=== PATIENT | female | born 1980 | race Two or more races ===

== ENCOUNTER 2017-11-07 21:04 | Inpatient (IN) | payer MEDICAID ==
[~2017-11-07] VITALS: Ht 165.1 cm; Wt 48.1 kg
[2017-11-07] MEDS ORDERED: Morphine Sulfate 4mg/ml Inj IVP ONE ×3 (21:30→23:30)
[2017-11-07 21:55] LABS: APPEARANCE,URINE CLEAR; BILIRUBIN, URINE NEGATIVE (NEGATIVE); GLUCOSE, URINE (UA) NEGATIVE (NEGATIVE); KETONES,URINE 2+ (NEGATIVE); LEUKOCYTE ESTERASE ,URINE 1+ (NEGATIVE); NITRITE,URINE NEGATIVE (NEGATIVE); PH,URINE 5 (4.5-8.0); PROTEIN,URINE 1+ (NEGATIVE); UROBILINOGEN,URINE 1 MG/DL (0.0-1.0)
[2017-11-07 21:57] LABS: COLOR,URINE YELLOW
[2017-11-07 22:00] LABS: BASOPHILS % (AUTO) 1.9 % (0.0-2.0); EOSINOPHILS % (AUTO) 0.1 % (0.0-3.0); HEMATOCRIT 41.6 % (37.0-47.0); HEMOGLOBIN 14.1 G/DL (12.0-16.0); LYMPHOCYTES % (AUTO) 26.9 % (20.0-45.0); MEAN CORPUSCULAR VOLUME 91 FL (80-99); MONOCYTES % (AUTO) 3.9 % (1.0-10.0); NEUTROPHILS % (AUTO) 67.3 % (45.0-75.0); PLATELET COUNT 367 K/UL (150-450); RED CELL DISTRIBUTION WIDTH 11.7 % (11.6-14.8); WHITE BLOOD COUNT 4.4 K/UL (4.8-10.8)
[2017-11-07 22:11] LABS: ANION GAP 8 mmol/L (5-15); BLOOD UREA NITROGEN 8 mg/dL (7-18); CALCIUM 9.5 MG/DL (8.5-10.1); CARBON DIOXIDE 29 MMOL/L (21-32); CHLORIDE 94 MMOL/L (98-107); CREATININE 0.8 MG/DL (0.55-1.30); POTASSIUM 2.9 MMOL/L (3.5-5.1); SODIUM 131 MMOL/L (136-145)
[2017-11-07 22:15] LABS: ALANINE AMINOTRANSFERASE 16 U/L (12-78); ALBUMIN 3.2 G/DL (3.4-5.0); ALBUMIN/GLOBULIN RATIO 0.8 (1.0-2.7); ALKALINE PHOSPHATASE 45 U/L (46-116); ASPARTATE AMINO TRANSFERASE 23 U/L (15-37); BILIRUBIN,TOTAL 0.4 MG/DL (0.2-1.0)
[2017-11-07] MEDS ORDERED: Zosyn 3.375gm inj ONE (23:29)
[2017-11-07] MEDS ORDERED: Piperacillin/Tazobactam 3.375 GM in NS 110 ML IVPB ONE (23:30)
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
[2017-11-08] VITALS (24 sets, daily range): BP systolic 84–113; BP diastolic 51–82
--- NOTE | 2017-11-08 00:24 | Emergency Room Report ---
History of Present Illness General Chief Complaint: Abdominal Pain Source: Patient Present Illness HPI Is a 37-year-old female with no past medical history. She presents with chief complaint of acute onset abdominal pain. Onset tonight when she was in the car. At the pullover to call 911. Pain is diffuse in nature. Has nausea and vomiting. No diarrhea. Her family said that she has been vomiting on and off for about a month now. Usually at night. Also with a 25 pound weight loss. Has a history of ulcer. Denies any fever or chills. Denies any diarrhea. Pain is 10 out of 10. Allergies: Coded Allergies: No Known Allergies (Unverified , 11/07/17) Patient History Past Medical History: none, see triage record, old chart reviewed Past Surgical History: none Pertinent Family History: none Social History: Denies: smoking Last Menstrual Period: unknown Now: No Immunizations: other Reviewed Nursing Documentation: PMH: Agreed, PSxH: Agreed Review of Systems Eye: Denies: eye pain, blurred vision ENT: Denies: ear pain, nose congestion, throat swelling Respiratory: Denies: cough, shortness of breath Cardiovascular: Denies: chest pain, palpitations Gastrointestinal: Reports: abdominal pain, nausea, vomiting, Denies: diarrhea Musculoskeletal: Denies: back pain, joint pain Skin: Denies: rash Neurological: Denies: headache, numbness Endocrine: Denies: increased thirst, increased urine Hematologic/Lymphatic: Denies: easy bruising All Other Systems: negative except mentioned in HPI Physical Exam Vital Signs Date Time Temp Pulse Resp B/P (MAP) Pulse Ox O2 Delivery O2 Flow Rate FiO2 11/07/17 21:00 97.9 97 18 104/67 98 Room Air vitals normal Sp02 EP Interpretation: reviewed, normal General Appearance: alert, moderate distress, thin Head: normocephalic, atraumatic Eyes: bilateral eye PERRL, bilateral eye EOMI ENT: hearing grossly normal, normal pharynx Neck: full range of motion, supple, no meningismus Respiratory: chest non-tender, lungs clear, normal breath sounds Cardiovascular #1: regular rate, rhythm, no murmur Gastrointestinal: no mass, no organomegaly, no bruit, non-distended, tenderness - Diffuse Musculoskeletal: back normal, gait/station normal, normal range of motion Neurologic: alert, oriented x3 Psychiatric: mood/affect normal Skin: warm/dry Procedures Critical Care Time Critical Care Time Critical care is mandated in this patient who presented with acute abdomen with peritonitis. Patient require my urgent intervention to attenuate the risks of metabolic collapse which may lead to cardiovascular collapse and . Critical care time is 35 minutes excluding any reportable procedure. Critical care time included evaluation, multiple reevaluation, looking at old charts, interpreting laboratory and diagnostic data, discussing case with patient and family and consultants, and charting. Medical Decision Making Diagnostic Impression: Primary Impression: Perforated gastric ulcer Qualified Codes: K25.1 - Acute gastric ulcer with perforation Additional Impressions: Adnexal mass Peritoneal carcinomatosis ER Course Patient presents with 2 major issues. First is that she has a perforated ulcer and has free air. She would need surgery. I discussed the case with Dr. Burton, surgeon on-call. He was in the ER for another case. He saw evaluate the patient. Will take her to the OR. Patient's second issue is neck some asked. 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 Antibiotic started. IV fluid started. Pain medication given. Will admit to OR. Lab Results Impression labs unremarkable EKG Diagnostic Results Rate: normal Rhythm: NSR ST Segments: no acute changes Rhythm Strip Diag. Results Rhythm Strip Time: 00:23 EP Interpretation: yes Rate: 80 Rhythm: NSR, no PVC's, no ectopy Chest X-Ray Diagnostic Results Chest X-Ray Diagnostic Results : Chest X-Ray Ordered: Yes # of Views/Limited/Complete: 1 View Indication: Chest Pain EP Interpretation: Yes Interpretation: no consolidation, no effusion, no pneumothorax Impression: No acute disease Electronically Signed by: Arnold Diggs MD CT/MRI/US Diagnostic Results CT/MRI/US Diagnostic Results : Imaging Test Ordered: CT abd and pelvis Impression Read by radiologist. 6 cm right adnexal mass. Moderate ascites. Taken peritoneum an omental heterogenicity concerning for carcinomatosis. Pneumoperitoneum concerning for perforated gastric ulcer. Last Vital Signs Date Time Temp Pulse Resp B/P (MAP) Pulse Ox O2 Delivery O2 Flow Rate FiO2 11/07/17 21:00 97.9 97 18 104/67 98 Room Air Status: improved Disposition: ADMITTED INPATIENT Condition: Serious Referrals: NOT CHOSEN RAFITA/,REFERRING (PCP) ARNOLD DIGGS M.D. Nov 08, 2017 00:24
--- NOTE | 2017-11-08 00:59 | History and Physical ---
History of Present Illness General Date patient seen: Nov 08, 2017 Time patient seen: 12:00 Reason for Hospitalization: Abdominal Pain Present Illness HPI 37 year old female with no sig pmh who presents with acute onset severe abd pain. Pt states that she was at the vitamin store and while walking back to her car began to have severe pain that put her to the floor. Pt states pain is generalized, 10/10, sharp and cramping in nature. Denies radiation of pain. Pt states that around Aug/Aug she started having intermittent abd pain w/ nausea and vomiting a well as reflux. She thought they were 2/2 gastric ulcer. She did not see a doctor but started holistic therapy w/ diet change and vitamins. Pt states previously she would drink and smoke often, as well as do some drugs such as cocaine. She has become vegan. She has had poor PO intake 2/2 nausea and vomiting. She has lost abt 15-20lbs in the past month. Last BM 3 days ago. Does suffer from constipation. Denies f/c, chest pain, SOB, dysuria. In ED, pt had CT A/P performed and demonstrated ascites, pneumoperitoneum, possible gastric perforation, possible carcinomatosis. Surgery was consulted w/ plan for OR. Allergies: Coded Allergies: No Known Allergies (Unverified , 11/07/17) Patient History History Provided By: Patient, Medical Record Healthcare decision maker Resuscitation status Advanced Directive on File Past Medical/Surgical History Past Medical/Surgical History: (1) No significant past medical history Family History Family History: Patient reports no known family medical history. Social History Social History: (1) Prior tobacco and alcohol use but state quit in Aug 2017 Review of Systems Constitutional: Reports: malaise, weakness Eye: Reports: no symptoms ENT: Reports: no symptoms Respiratory: Reports: no symptoms Cardiovascular: Reports: no symptoms Gastrointestinal: Reports: abdominal pain, nausea Genitourinary: Reports: no symptoms Musculoskeletal: Reports: no symptoms Skin: Reports: no symptoms Psychiatric: Reports: no symptoms Neurological: Reports: no symptoms Endocrine: Reports: no symptoms Hematologic/Lymphatic: Reports: no symptoms Physical Exam Physical Exam Narrative General: alert, cooperative, no distress, appears stated age Head: normocephalic, without obvious abnormality, atraumatic Eyes: conjunctivae/corneas clear. PERRL, EOM's intact Throat: lips, mucosa, and tongue normal. MMM Neck: supple, symmetrical, trachea midline, and no JVD Lungs: clear to auscultation bilaterally Heart: regular rate and rhythm, S1, S2 normal, no murmur, click, rub or gallop Abdomen: soft, appropriately TTP, no distention, dressing c/d/i Extremities: extremities normal, atraumatic, no cyanosis or edema Pulses: 2+ and symmetric Skin: skin color, texture, turgor normal; no rashes or lesions Neurologic: grossly normal, no focal deficits Last 24 Hour Vital Signs Date Time Temp Pulse Resp B/P (MAP) Pulse Ox O2 Delivery O2 Flow Rate FiO2 11/07/17 21:00 97.9 97 18 104/67 98 Room Air Intake and Output 11/07/17 11/08/17 19:00 07:00 Intake Total 0 ml Balance 0 ml Intake Oral 0 ml Laboratory Tests Test 11/07/17 21:25 White Blood Count 4.4 K/UL (4.8-10.8) L Red Blood Count 4.60 M/UL (4.20-5.40) Hemoglobin 14.1 G/DL (12.0-16.0) Hematocrit 41.6 % (37.0-47.0) Mean Corpuscular Volume 91 FL (80-99) Mean Corpuscular Hemoglobin 30.6 PG (27.0-31.0) Mean Corpuscular Hemoglobin Concent 33.8 G/DL (32.0-36.0) Red Cell Distribution Width 11.7 % (11.6-14.8) Platelet Count 367 K/UL (150-450) Mean Platelet Volume 8.3 FL (6.5-10.1) Neutrophils (%) (Auto) 67.3 % (45.0-75.0) Lymphocytes (%) (Auto) 26.9 % (20.0-45.0) Monocytes (%) (Auto) 3.9 % (1.0-10.0) Eosinophils (%) (Auto) 0.1 % (0.0-3.0) Basophils (%) (Auto) 1.9 % (0.0-2.0) Urine Color Yellow Urine Appearance Clear Urine pH 5 (4.5-8.0) Urine Specific [place] 1.020 (1.005-1.035) Urine Protein 1+ (NEGATIVE) H Urine Glucose (UA) Negative (NEGATIVE) Urine Ketones 2+ (NEGATIVE) H Urine Occult Blood 1+ (NEGATIVE) H Urine Nitrite Negative (NEGATIVE) Urine Bilirubin Negative (NEGATIVE) Urine Urobilinogen 1 MG/DL (0.0-1.0) H Urine Leukocyte Esterase 1+ (NEGATIVE) H Urine RBC 2-4 /HPF (0 - 2) H Urine WBC 2-4 /HPF (0 - 2) Urine Squamous Epithelial Cells Few /LPF (NONE/OCC) Urine Amorphous Sediment Few /LPF (NONE) H Urine Bacteria Few /HPF (NONE) Urine Fine Granular Casts 2-4 /LPF (NONE) H Urine HCG, Qualitative Negative Sodium Level 131 MMOL/L (136-145) L Potassium Level 2.9 MMOL/L (3.5-5.1) L Chloride Level 94 MMOL/L (98-107) L Carbon Dioxide Level 29 MMOL/L (21-32) Anion Gap 8 mmol/L (5-15) Blood Urea Nitrogen 8 mg/dL (7-18) Creatinine 0.8 MG/DL (0.55-1.30) Estimat Glomerular Filtration Rate > 60 mL/min (>60) Glucose Level 203 MG/DL (74-106) H Calcium Level 9.5 MG/DL (8.5-10.1) Total Bilirubin 0.4 MG/DL (0.2-1.0) Aspartate Amino Transf (AST/SGOT) 23 U/L (15-37) Alanine Aminotransferase (ALT/SGPT) 16 U/L (12-78) Alkaline Phosphatase 45 U/L (46-116) L Total Protein 7.3 G/DL (6.4-8.2) Albumin 3.2 G/DL (3.4-5.0) L Globulin 4.1 g/dL Albumin/Globulin Ratio 0.8 (1.0-2.7) L Lipase 67 U/L (73-393) L Urine Opiates Screen Negative (NEGATIVE) Urine Barbiturates Screen Negative (NEGATIVE) Phencyclidine (PCP) Screen Negative (NEGATIVE) Urine Amphetamines Screen Negative (NEGATIVE) Urine Benzodiazepines Screen Negative (NEGATIVE) Urine Cocaine Screen Negative (NEGATIVE) Urine Marijuana (THC) Screen Positive (NEGATIVE) H Height (Feet): 5 Height (Inches): 5.00 Weight (Pounds): 156 Assessment/Plan Problem List: (1) Large perforated chronic gastric antrum anterior ulcer (2) Large right ovarian mass (3) Peritoneal carcinomatosis ICD Codes: C78.6 - Secondary malignant neoplasm of retroperitoneum and peritoneum; C80.1 - Malignant (primary) neoplasm, unspecified SNOMED: 204540558, [id number] (4) Peritonitis (acute) generalized ICD Codes: K65.0 - Generalized (acute) peritonitis SNOMED: 15299427 (5) Pneumoperitoneum ICD Codes: K66.8 - Other specified disorders of peritoneum SNOMED: 69994943 Status: stable Assessment/Plan Admit to ICU Appreciate surgery rec's s/p diagnostic laparoscopy converted to exploratory laparotomy w/ antrectomy and Billroth II gastrojejunostomy, R ovarian biopsy, abd washout F/u path Check CEA, CA 125 NPO NGT to LIWS. Per surgery, do not replace if dislodged IVFs Empiric IV zosyn PPI DVT ppx w/ SCDs, start HSQ when ok with surgery Pain control Nausea control Supportive care Ellis to monitor I/O's ISS Ambulate FULL CODE D/w pt, RN, SW/CM, surgery regarding mgmt and dispo Roxanne Dubon M.D. Nov 08, 2017 00:58
[2017-11-08] MEDS ORDERED: Morphine Sulfate 4mg/ml Inj IVP ONE (01:00)
[2017-11-08] MEDS ORDERED: Lidocaine 1% 10mg/ml/EPI 0.01mg/ml 50ml INJ ONE (02:15)
[2017-11-08] MEDS ORDERED: Morphine Sulfate 2mg/ml Inj IVP PRN (02:30)
[2017-11-08] MEDS ORDERED: Miralax 17gm pkt ORAL PRN ×2 (02:30→08:30)
[2017-11-08] MEDS ORDERED: Potassium Chloride 10 MEQ in D5 1/2NS 1,000 ML IV SCH (02:30)
[2017-11-08] MEDS ORDERED: Zolpidem 5mg tab ORAL PRN (02:30)
[2017-11-08] MEDS: LR 1000ml 1,000 ML IV SCH ×3 (02:30→08:04)
[2017-11-08] MEDS ORDERED: Acetaminophen 650 MG SUPP RECTAL PRN ×2 (02:30)
[2017-11-08] MEDS ORDERED: Morphine Sulfate 4mg/ml Inj IVP PRN (02:30)
[2017-11-08] MEDS ORDERED: Mylanta II UD 30ml ORAL PRN (02:30)
[2017-11-08] MEDS ORDERED: Sterile Water Irrig 1000ml IRRIG ONE (03:00)
[2017-11-08] MEDS ORDERED: LR 1000ml ONE (03:00)
[2017-11-08] MEDS ORDERED: Propofol 200mg/20ml IV ONE (03:00)
[2017-11-08] MEDS ORDERED: NS Irrig 1000ml ONE (03:00)
[2017-11-08] MEDS ORDERED: NS w/KCl 40mEq 1,000 ML IV SCH (03:00)
[2017-11-08] MEDS ORDERED: Succinylcholine 20mg/ml 10ml vial ONE (03:00)
[2017-11-08] MEDS ORDERED: Lidocaine 1% MPF 10mg/ml 5ml ONE (03:00)
[2017-11-08] MEDS ORDERED: Ketorolac 30mg Inj ONE (03:00)
[2017-11-08] MEDS ORDERED: fentaNYL 100 mcg/2 mL IV ONE (03:00)
[2017-11-08] MEDS ORDERED: Midazolam 2mg/2ml Inj ONE (03:00)
[2017-11-08] MEDS ORDERED: Metoclopramide 10mg/2ml Inj ONE (03:00)
[2017-11-08] MEDS ORDERED: Zemuron 50mg/5ml Inj IV ONE (03:00)
[2017-11-08] MEDS ORDERED: Dexamethasone 4mg/ml vial ONE (03:00)
[2017-11-08] MEDS ORDERED: NS Irrig 1000ml IRRIG ONE (03:15)
[2017-11-08] MEDS ORDERED: LR 1000ml 1,000 ML IVLG SCH (03:34)
--- NOTE | 2017-11-08 03:34 | Anethesia Preoperative Eval ---
Anesthesia Pre-op PMH/ROS General Date of Evaluation: Nov 08, 2017 Anesthesiologist: Tello ASA Score: ASA 2 - E Mallampati Score Class I : Soft palate, uvula, fauces, pillars visible Class II: Soft palate, uvula, fauces visible Class III: Soft palate, base of uvula visible Class IV: Only hard plate visible Mallampati Classification: Class II Surgeon: Micheal Diagnosis: Abdominal pain Surgical Procedure: Exploratory laparoscopy Anesthesia History: none Family History: no anesthesia problems Allergies: Coded Allergies: No Known Allergies (Unverified , 11/07/17) Medications: see eMAR Past Medical History Cardiovascular: Denies: HTN, CAD, NE, valve dz, arrhythmia, other Pulmonary: Denies: asthma, COPD, DEMETRIA, other Gastrointestinal/Genitourinary: Reports: GERD, other - colitis, N/V for 1 month , Denies: CRI, ESRD Neurologic/Psychiatric: Denies: dementia, CVA, depression/anxiety, TIA, other Endocrine: Denies: DM, hypothyroidism, steroids, other HEENT: Denies: cataract (L), cataract (R), glaucoma, HABEMATOLEL (L), HABEMATOLEL (R), other Hematology/Immune: Denies: anemia, DVT, bleeding disorder, other Musculoskeletal/Integumentary: Denies: OA, RA, DJD, DDD, edema, other Other: other - failure to thrive PSxH Narrative: Denies Anesthesia Pre-op Phys. Exam Physician Exam Last Vital Signs Date Time Temp Pulse Resp B/P (MAP) Pulse Ox O2 Delivery O2 Flow Rate FiO2 11/08/17 03:02 97.6 98 16 105/55 98 Room Air Constitutional: other - in moderate distress, pain 7/10 Cardiovascular: RRR Respiratory: CTA Airway Exam Mallampati Score: Class II MO: limited ROM: full Teeth: intact Anesthesia Pre-op A/P Labs Hematology Test 11/07/17 21:25 White Blood Count 4.4 K/UL (4.8-10.8) L Red Blood Count 4.60 M/UL (4.20-5.40) Hemoglobin 14.1 G/DL (12.0-16.0) Hematocrit 41.6 % (37.0-47.0) Mean Corpuscular Volume 91 FL (80-99) Mean Corpuscular Hemoglobin 30.6 PG (27.0-31.0) Mean Corpuscular Hemoglobin Concent 33.8 G/DL (32.0-36.0) Red Cell Distribution Width 11.7 % (11.6-14.8) Platelet Count 367 K/UL (150-450) Mean Platelet Volume 8.3 FL (6.5-10.1) Neutrophils (%) (Auto) 67.3 % (45.0-75.0) Lymphocytes (%) (Auto) 26.9 % (20.0-45.0) Monocytes (%) (Auto) 3.9 % (1.0-10.0) Eosinophils (%) (Auto) 0.1 % (0.0-3.0) Basophils (%) (Auto) 1.9 % (0.0-2.0) Chemistry Test 11/07/17 21:25 Sodium Level 131 MMOL/L (136-145) L Potassium Level 2.9 MMOL/L (3.5-5.1) L Chloride Level 94 MMOL/L (98-107) L Carbon Dioxide Level 29 MMOL/L (21-32) Anion Gap 8 mmol/L (5-15) Blood Urea Nitrogen 8 mg/dL (7-18) Creatinine 0.8 MG/DL (0.55-1.30) Estimat Glomerular Filtration Rate > 60 mL/min (>60) Glucose Level 203 MG/DL (74-106) H Calcium Level 9.5 MG/DL (8.5-10.1) Total Bilirubin 0.4 MG/DL (0.2-1.0) Aspartate Amino Transf (AST/SGOT) 23 U/L (15-37) Alanine Aminotransferase (ALT/SGPT) 16 U/L (12-78) Alkaline Phosphatase 45 U/L (46-116) L Total Protein 7.3 G/DL (6.4-8.2) Albumin 3.2 G/DL (3.4-5.0) L Globulin 4.1 g/dL Albumin/Globulin Ratio 0.8 (1.0-2.7) L Lipase 67 U/L (73-393) L Urine Test Test 11/07/17 21:25 Urine HCG, Qualitative Negative Studies Pre-op Studies: EKG - sr Risk Assessment & Plan Assessment: ASA IIE Plan: GA Status Change Before Surgery: No Pre-Antibiotics Drug: Ancef 1g Given Within 1 Hr of Incision: Yes GREG XIE M.D. Nov 08, 2017 03:34
--- NOTE | 2017-11-08 03:39 | Immediate Post-Op Evaluation ---
Immediate Post-Op Evalulation Immediate Post-Op Evalulation Procedure: exploratory laparoscopy, repair of perforated gastric ulcer Date of Evaluation: Nov 08, 2017 Time of Evaluation: 06:03 IV Fluids: 3L Blood Products: 0 Estimated Blood Loss: 100 Urinary Output: 200 Blood Pressure Systolic: 99 Blood Pressure Diastolic: 56 Pulse Rate: 101 Respiratory Rate: 17 O2 Sat by Pulse Oximetry: 100 Temperature (Fahrenheit): 98 Pain Score (1-10): 0 Nausea: No Vomiting: No Complications 0 Patient Status: awake, reacts, patent, none Hydration Status: adequate Drug: Ancef 1g Given Within 1 Hr of Incision: Yes Time Given: 03:00 GREG XIE M.D. Nov 08, 2017 03:38
[2017-11-08] MEDS ORDERED: DiphenhydrAMINE 50mg/ml Inj IVP PRN (03:45)
[2017-11-08] MEDS ORDERED: fentaNYL 100 mcg/2 mL IV PRN (03:45)
[2017-11-08] MEDS ORDERED: Hydromorphone 0.5mg/0.5ml inj IVP PRN (03:45)
[2017-11-08] MEDS ORDERED: Ketorolac 30mg Inj IV PRN (03:45)
[2017-11-08] MEDS ORDERED: D5 1/2NS w/KCl 20mEq 1,000 ML IV SCH (05:57)
[2017-11-08] MEDS ORDERED: Piperacillin/Tazobactam 3.375 GM in NS 110 ML IVPB SCH (06:00)
--- NOTE | 2017-11-08 06:04 | Brief Operative Note ---
Immediate Post Operative Note Operative Note Pre-op Diagnosis: acute abdomen, peritonitis, pneumoperitoneum Procedure: diagnostic laparoscopy, converted to exploratory laparotomy, antrectomy, Billroth 2 gastrojejunostomy, right ovary biopsy. Surgeon: jaimee Anesthesiologist: Graham Anesthesia: general Specimen: yes - 1. peritoneal fluid, 2. omentum, 3. right ovary biopsy, antrectomy Complications: none Condition: stable Fluids: see records Estimated Blood Loss: volume Drains: NICOLE Implant(s) used?: No Torrey Burton Nov 08, 2017 06:04
[2017-11-08] MEDS: HYDROmorphone 1mg/ml Carpuject IVP PRN ×2 (07:29→21:20)
[2017-11-08] MEDS ORDERED: Docusate 100mg cap ORAL SCH (09:00)
--- NOTE | 2017-11-08 09:06 | 48 Hour Post Anesthesia Eval ---
Post Anesthesia Evaluation Procedure: exploratory laparoscopy, repair of perforated gastric ulcer Date of Evaluation: Nov 08, 2017 Time of Evaluation: 09:05 Blood Pressure Systolic: 104 0: 52 Pulse Rate: 88 Respiratory Rate: 22 Temperature (Fahrenheit): 97.6 O2 Sat by Pulse Oximetry: 99 Airway: patent Nausea: No Vomiting: No Pain Intensity: 3 Hydration Status: adequate Cardiopulmonary Status: stable Mental Status/LOC: patient returned to baseline Follow-up Care/Observations: n/a Post-Anesthesia Complications: none Follow-up care needed: N/A ELISE MAHONEY M.D. Nov 08, 2017 09:06
[2017-11-08] MEDS: Piperacillin/Tazobactam 3.375 GM in NS 110 ML IVPB SCH ×2 (10:00→18:29)
[2017-11-08 10:34] LABS: HEMOGLOBIN 13.2 G/DL (12.0-16.0); MEAN CORPUSCULAR VOLUME 89 FL (80-99); PLATELET COUNT 274 K/UL (150-450); RED BLOOD COUNT 4.25 M/UL (4.20-5.40); RED CELL DISTRIBUTION WIDTH 11.7 % (11.6-14.8); WHITE BLOOD COUNT 5.2 K/UL (4.8-10.8)
[2017-11-08 12:17] LABS: ALANINE AMINOTRANSFERASE 22 U/L (12-78); ALBUMIN 1.9 G/DL (3.4-5.0); ALBUMIN/GLOBULIN RATIO 0.6 (1.0-2.7); ALKALINE PHOSPHATASE 26 U/L (46-116); ANION GAP 10 mmol/L (5-15); ASPARTATE AMINO TRANSFERASE 26 U/L (15-37); BILIRUBIN,TOTAL 0.5 MG/DL (0.2-1.0); BLOOD UREA NITROGEN 7 mg/dL (7-18); CALCIUM 8.3 MG/DL (8.5-10.1); CARBON DIOXIDE 25 MMOL/L (21-32); CHLORIDE 99 MMOL/L (98-107); CREATININE 0.8 MG/DL (0.55-1.30); SODIUM 134 MMOL/L (136-145)
--- NOTE | 2017-11-08 12:17 | Pulmonolgy Critical Care Note ---
Critical Care - Asmt/Plan Problems: (1) Shock (2) Peritonitis (acute) generalized (3) Perforated gastric ulcer Respiratory: monitor respiratory rate, adjust FIO2, CXR Cardiac: continue to monitor HR/BP Renal: F/U I&O, increase IV fluid Infectious Disease: continue antibiotics Endocrine: monitor blood sugar Hematologic: monitor H/H Neurologic: PRN Ativan Disposition: keep in ICU Notes Reviewed: renal Discussed with: consultants Critical Care - Objective Last 24 Hour Vital Signs Date Time Temp Pulse Resp B/P (MAP) Pulse Ox O2 Delivery O2 Flow Rate FiO2 11/08/17 11:00 100 12 101/74 99 Nasal Cannula 3.0 11/08/17 10:00 103 13 106/69 100 Nasal Cannula 3.0 11/08/17 09:06 88 22 99 11/08/17 09:00 98 11 97/60 100 Nasal Cannula 3.0 11/08/17 08:00 98 11/08/17 08:00 103 12 100/67 100 Nasal Cannula 3.0 11/08/17 07:00 98.5 97 15 113/75 100 Nasal Cannula 3.0 11/08/17 06:30 98.2 97 20 111/79 100 Nasal Cannula 3.0 100 11/08/17 06:15 98 20 98/60 100 Simple Mask 10.0 100 11/08/17 06:07 99 20 102/59 100 Simple Mask 10.0 100 11/08/17 06:02 100 20 93/55 100 Simple Mask 10.0 100 11/08/17 05:57 98.0 100 20 84/53 100 Simple Mask 10.0 100 11/08/17 03:02 97.6 98 16 105/55 98 Room Air 11/08/17 02:30 97.6 98 16 105/55 98 Room Air 11/07/17 21:00 97.9 97 18 104/67 98 Room Air Status: awake Condition: critical HEENT: atraumatic Neck: full ROM Lungs: clear Heart: HR/BP stable, HR/BP unstable Abdomen: soft, active bowel sounds Extremities: no C/C/E Accucheck: 137 Critical Care - Subjective ROS Limited/Unobtainable: No ICU Day: 1 Interval Events: pt had laparotomy, antrectomy, Billroth 2 gastrojejunostomy, right ovary biopsy. transferred to ICU for hypotension. FI02: 100 Sputum Amount: None I&O: Intake and Output 11/07/17 11/08/17 19:00 07:00 Intake Total 3000 ml Output Total 480 ml Balance 2520 ml Intake Oral 0 ml IV Total 3000 ml Output Urine Total 330 ml Drainage Total 100 ml Estimated Blood Loss 50 ml PENNY GOMEZ Nov 08, 2017 12:17
--- NOTE | 2017-11-08 12:54 | Diagnostic Imaging Report ---
. Indication: Dyspnea Technique: XRAY Chest 1v Comparison: None Findings: Heart size and mediastinal contours are within normal limits given technique. There is no focal consolidation, pneumothorax or pleural effusion. Osseous structures demonstrate no acute abnormality. Impression: No radiographic evidence of acute cardiopulmonary disease.
--- NOTE | 2017-11-08 17:52 | Cardiology Report ---
APPROVED REPORT EKG Measurement Heart [id number] Normal sinus rhythm Prolonged QT ST-T abn - consider anterior ischemia Abnormal ECG
--- NOTE | 2017-11-08 17:57 | Diagnostic Imaging Report ---
Indication: Abdominal pain Technique: CT of the abdomen and pelvis utilizing automated exposure control with intravenous contrast. Venous scanning performed. CT dose: Total DLP 418.72 mGycm; CTDI vol 8.93 mGy Comparison: None Findings: There is dependent atelectasis in the lung bases. Heart size is within normal limits. No pericardial effusion. There is pneumoperitoneum. There is suggestion of focal defect in the wall of the gastric antrum (series 6 image #31). There is diffuse bowel and gastric thickening which may be related to underdistention, edema or gastritis/enteritis/colitis. There is no evidence of bowel obstruction. There is moderate abdominal ascites with thickening and enhancement of the peritoneum which may be related to peritonitis or carcinomatosis given below described adnexal lesion. Gallbladder is contracted. Liver is unremarkable. No portal venous gas. Spleen, adrenal glands, kidneys, pancreas and bladder are grossly unremarkable. Uterus is grossly unremarkable for CT. There is an approximately 6 cm heterogeneous mass in the pelvis, possibly right adnexal in origin (series 3 image 60). Abdominal aorta normal in caliber. No appreciable bulky lymphadenopathy. No acute osseous abnormality seen. IMPRESSION: Pneumoperitoneum concerning for hollow viscus perforation. Possible defect within the gastric antrum as above may suggest perforated gastric ulcer. 6 cm right adnexal mass. Moderate ascites with peritoneal thickening and enhancement which may be related to peritonitis or carcinomatosis given the adnexal mass. Diffuse bowel wall thickening which may be related to underdistention, carcinomatosis, edema or infection/inflammation. This corresponds with the statrad preliminary report. The CT scanner at [facility] is accredited by the [employer] and the scans are performed using protocols designed to limit radiation exposure to as low as reasonably achievable to attain images of sufficient resolution adequate for diagnostic evaluation.
--- NOTE | 2017-11-08 18:09 | General Progress Note ---
Progress Note Progress Note Surgery: looks remarkable today given operative findings and history. talkative, pleasant, comfortable. afebrile, HD stable, labs reviewed. NG tube with black bilious output minimal. Melara with dark urine but good output. NICOLE drains with serosang output. was ambulatory today. abdomen soft, non distended, minimal tenderness, incision c/d/i. -high risk for morbidity given history and op findings. surgical ICU care needed. keep in ICU for now. -Strict NPO -IV fluids -PICC and TPN -Abx -PPI -NG tube to LIS. DO NOT REPLACE IF DISLODGED -Ambulate and OOB -Incentive Spirometry -Keep melara in for accurate I&O -SCD's Torrey Burton Nov 08, 2017 18:09
[2017-11-08] MEDS: Pantoprazole Inj IVP SCH (18:54)
[2017-11-09] VITALS (25 sets, daily range): BP systolic 81–98; BP diastolic 47–76
[2017-11-09] MEDS: HYDROmorphone 1mg/ml Carpuject IVP PRN ×3 (00:34→08:20)
[2017-11-09] MEDS ORDERED: Sodium Chloride 500ML 500 ML IV ONE (01:30)
[2017-11-09] MEDS: Piperacillin/Tazobactam 3.375 GM in NS 110 ML IVPB SCH ×3 (02:02→17:08)
--- NOTE | 2017-11-09 02:15 | Operative Note - Dictated ---
DATE OF OPERATION: 11/08/2017 PREOPERATIVE DIAGNOSES: Acute abdomen, peritonitis, and pneumoperitoneum. POSTOPERATIVE DIAGNOSES: 1. 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 2. Large right ovarian mass. 3. Pneumoperitoneum. 4. Peritonitis. 5. Intraperitoneal generalized abscess. 6. Infectious/inflammatory peritonitis. OPERATION PERFORMED: 1. Diagnostic laparoscopy converted to exploratory laparotomy with antrectomy and Billroth II gastrojejunostomy. 2. Right ovarian biopsy. 3. Abdominal washout. ATTENDING SURGEON: Torrey Burton M.D. [employer] MANAGER: None. ANESTHESIOLOGIST: Sosa Javed M.D. ANESTHESIA: General PROGRAM MANAGEMENT SPECIALIST. SPECIMENS: 1. Peritoneal fluid. 2. Omentum. 3. Right ovary biopsy. 4. Antrectomy. COMPLICATIONS: None. CONDITION: Stable. FLUIDS: Please see anesthesia records. ESTIMATED BLOOD LOSS: 50 mL. WOUND CLASSIFICATION: Class III to IV. DRAINS: Two 19-Palauan Jimi drains left in the abdomen. COUNTS: Sponge and needle count correct x2. INDICATIONS FOR PROCEDURE: This is a 37-year-old female with very acute on chronic presentation of generalized acute abdomen. The patient states that somewhere in August, she began to have some vague generalized abdominal pain with associated nausea and emesis. She noted some reflux symptoms at that time. She had researched these symptoms and thought to be gastric reflux with a potential gastric ulcer, which she did not seek medical attention for and began holistic therapy with dietary changes and vitamins. She became a vegan since and has attempted multiple diets and non-medical therapies as continuing to have worsening abdominal pain, nausea, and emesis. She states that she has not been tolerating much of the diet over the past month and a half and has lost near 15 to 20 pounds, which in someone of her size is significant portion of her BMI. She states that she has emesis nearly everyday if not every other day and sometimes every two to three days over the past month and a half, but believes it to be a lot, which correlates with what the family has told me. As she did not get better, she continued to attempt non-medical therapies, but unfortunately became very sick earlier just prior to admission where she had a fall outside of [facility] and EMS was called and then the patient was transferred to [facility]. When talking to the patient, she states that she felt as if she was going to . In the emergency department, a CT was performed, which identified pneumoperitoneum, free fluid, potential hollow viscous injury around the antrum and a large right adnexal mass and omental caking, potentially inflammatory peritonitis or carcinomatosis. With all this in mind, I had a very long discission with the patient and her family regarding her condition and above findings. After doing so, I explained to them that there is potential that this is a chronic perforation of a hollow viscus, which is acutely worsened or potentially a malignant process, which is very concerning. Risks, benefits, and alternatives were discussed in detail and decision was made to proceed with surgical intervention beginning with diagnostic laparoscopy, potential exploratory laparotomy, potential bowel resection, potential ostomy, potential open abdomen and a biopsy as necessary. I explained the patient the risk of bleeding, infection, and and given her presenting symptoms and condition, the fairly high morbidity rate and potential mortality rates. The patient expressed understanding and consented for surgery. OPERATIVE NOTE: The patient was taken to the operating room, placed on the operating table in supine position with bilateral arms out. All bony prominences were well padded. Appropriate time-out was taken identifying the patient, procedure, operative staff, and surgical staff. SCDs were placed. Ellis catheter was inserted using sterile technique in the emergency department prior to coming to the operating room. The patient was started on IV antibiotics for acute active inflammatory process prior to entering the operating room. General anesthesia was induced and the patient was intubated. The abdomen was prepped and draped in standard surgical fashion. A nasogastric tube was inserted and black bilious stuff was evacuated. An incision was made in the umbilicus, which was carried down to the fascia. The fascia was elevated and incised, and entry into the abdomen noted using open Braeden technique. A 12 mm Braeden trocar was inserted and the abdomen was insufflated with 12 mmHg. The patient tolerated the insufflation well. Laparoscope was inserted and the abdomen was inspected. Upon initial inspection, there was a significant amount of purulent fluid noted in all quadrants of the abdomen. The bowel, liver and all organs were very shrunken and malnourished. In the right upper quadrant, the liver had areas of purulent ascites around it, which was evacuated. In the left upper quadrant, there was omental caking around the area of the gastric antrum. In the left lower quadrant, there was purulent peritoneal fluid, which was evacuated and the same with the right lower quadrant. In the pelvis, there was atrophic uterus noted with a large fibroid on the apex of it. The left adnexa was mildly dilated, but looked okay. In the right adnexa was a large mass, which was very concerning. There were no peritoneal implants noted, but diffuse peritonitis was identified. The small bowel was inspected and no abnormalities noted except for the mesentery of the small bowel had numerous/multiple areas of white deposits, which could potentially have been from the peritonitis. Colon looked otherwise normal. We then turned our attention to the stomach, at which time we identified a large perforation in the distal gastric antrum, approximately 2 to 3 cm proximal to the pylorus. The area of omentum had already been plastered onto it and diffusely thickened trying to cover this area of perforation, but the superior aspect of the perforation site was still noted and the patient did not have leaping of omentum to cover that aspect or the perforation continuing to open. When the stomach was manipulated, gastric contents evacuated to that area. At this time, decision was made given the operative findings to convert to laparotomy. There was diffuse colonic inflammatory process and thickening of this area to proceed with an appropriate laparoscopic repair. Secondary trocars removed under direct visualization and the abdominal incision was extended cephalad and caudad for a laparotomy incision. The incision was taken down to the fascia, which was elevated and incised using electrocautery. The abdomen was then entered and similar inspecting laparoscopy was done using the open technique and similar findings were identified. A copious amounts of warm normal saline was used to cleanse the abdomen. Following this, the stomach was palpated and the proximal portions of the stomach were noted to be normal, but the antrum was significantly thickened circumferentially causing gastric outlet obstruction, and around the site of perforation, I could evaluate the anterior contents, which were very thickened and near obstructive, but not completely obstructive given the amount of inflammation and thickening of the tissues. At this time, unfortunately, a simple Elier patch would not suffice given these findings and the chronicity of the patient's condition. Decision was made to proceed with antrectomy and then evaluate for possible BI or BII reconstruction. The remaining thickened omentum was excised and sent to pathology for review. The gastrocolic ligament was identified and incised, and the stomach and colon . The lesser sac was entered and evaluated and no abnormalities were found. The short gastrics were taken down using electrocautery and 3-0 silk ties for good mobilization of the gastric antrum. Proximally, the right gastroepiploic was identified, divided and ligated using #0 silk ties. The lesser sac was then very thickened and inflamed as well and heart identified. Incision was made around the superior portion of the stomach into the lesser sac, which was then divided and opened using electrocautery and 2-0 silk ties for vessels as necessary. The left gastroepiploic was then identified and divided in required division. The left gastric was more proximal and was not manipulated or dissected out. Once the antrum was completely mobilized past the pylorus, decision was made to divide at the just distal to the pylorus in the first portion of the duodenum using a TA stapler. Following this, a JUAN 100 mm stapler was used to divide just proximal to the area of inflammation and thickening in the gastric antrum. Once this was completed, hemostasis was checked and achieved with electrocautery and silk ties as necessary. The wound was then re-irrigated again and re-evaluated. No bleeding or other abnormalities were noted. The remaining organs and tissues were otherwise healthy. At this time, given the amount of space between remaining gastric body and the first portion of duodenum, a B I was not appropriate and we began by proceeding with a B II gastrojejunostomy. The ligament of Treitz was identified and the jejunum was oriented approximately 30 cm from ligament of Treitz. This portion was antecolic and a stay suture was placed between the distal gastric body and the area of proposed jejunum. Enterotomy and gastrotomy was made followed by entrance of a 70 mm JUAN stapler, which was not used in whole and a [id number] anastomosis was made. The anastomosis was checked visually and good hemostasis was noted. At this time, the remaining defect was closed in a two-layer fashion beginning with a 3-0 Vicryl suture followed by 3-0 silk Lambert sutures. The irrigation was instilled through the NG tube and no leak was identified. The afferent and efferent loops of the small intestine were noted and both were palpable and patent. The gastrojejunostomy was patent and hemostatic and otherwise satisfactory. At this time, we began the conclusion of our procedure. The NG tube was placed appropriately proximal to the anastomosis and secured in place with the assistance of the anesthesiologist. The abdomen was then irrigated with copious amounts of warm normal saline until clear. At this time, the duodenal stump was identified and noted to be stable, hemostatic and well. Right ovary biopsy taken. At this time, decision was made to place drains in the abdomen beginning with utilizing the laparoscopic port sites. One drain was placed in the pelvis and one drain was placed in the liver bed. We then began the conclusion of the procedure with closure of the fascia using a #1 looped PDS suture. Following this, the wound was irrigated, cleansed, and skin incision was closed using skin zoie. The drains were secured using 2-0 nylon sutures. At this time, wound was cleansed and dressings were placed. The patient was extubated and taken to the postanesthetic care unit and then transferred to the intensive care unit for monitoring postoperatively. Torrey Burton M.D. DR: MARCELLA JOB#: [id number] CC: MUNA
[2017-11-09 05:59] LABS: BASOPHILS % (AUTO) 1.1 % (0.0-2.0); HEMATOCRIT 30.4 % (37.0-47.0); HEMOGLOBIN 10.5 G/DL (12.0-16.0); LYMPHOCYTES % (AUTO) 8.1 % (20.0-45.0); MEAN CORPUSCULAR VOLUME 90 FL (80-99); NEUTROPHILS % (AUTO) 82.7 % (45.0-75.0); PLATELET COUNT 235 K/UL (150-450); RED BLOOD COUNT 3.36 M/UL (4.20-5.40); RED CELL DISTRIBUTION WIDTH 12.2 % (11.6-14.8); WHITE BLOOD COUNT 8.5 K/UL (4.8-10.8)
[2017-11-09 06:02] LABS: INR 1.2 (0.9-1.1)
[2017-11-09 06:08] LABS: ALANINE AMINOTRANSFERASE 24 U/L (12-78); ALBUMIN 1.7 G/DL (3.4-5.0); ALBUMIN/GLOBULIN RATIO 0.6 (1.0-2.7); ALKALINE PHOSPHATASE 28 U/L (46-116); ANION GAP 0 mmol/L (5-15); ASPARTATE AMINO TRANSFERASE 28 U/L (15-37); BILIRUBIN,TOTAL 0.3 MG/DL (0.2-1.0); BLOOD UREA NITROGEN 9 mg/dL (7-18); CALCIUM 7.7 MG/DL (8.5-10.1); CARBON DIOXIDE 30 MMOL/L (21-32); CHLORIDE 105 MMOL/L (98-107); CREATININE 0.8 MG/DL (0.55-1.30); SODIUM 135 MMOL/L (136-145); TRIGLYCERIDES 34 MG/DL (30-150)
[2017-11-09] MEDS: Pantoprazole Inj IVP SCH ×2 (08:13→17:07)
[2017-11-09] MEDS ORDERED: Pantoprazole Inj IVP SCH (09:00)
--- NOTE | 2017-11-09 10:22 | Pulmonolgy Critical Care Note ---
Critical Care - Asmt/Plan Problems: (1) Shock (2) Peritonitis (acute) generalized (3) Perforated gastric ulcer Respiratory: adjust tidal volume, monitor respiratory rate, adjust FIO2, CXR Cardiac: continue to monitor HR/BP Renal: F/U I&O, keep IV fluid Gastrointestinal: hold feedings, abdominal imaging Endocrine: check HgA1C Hematologic: monitor H/H Neurologic: PRN Ativan Prophylaxis: Protonix, SCDs Notes Reviewed: cardio, renal Discussed with: nurses, consultants, outpatient case managerprecision crop manager - Objective Last 24 Hour Vital Signs Date Time Temp Pulse Resp B/P (MAP) Pulse Ox O2 Delivery O2 Flow Rate FiO2 11/09/17 08:00 98.4 88 13 84/53 100 Nasal Cannula 3.0 11/09/17 08:00 101 17 100 11/09/17 07:58 87 11/09/17 07:00 80 16 84/49 99 Nasal Cannula 3.0 11/09/17 06:00 90 16 95/76 99 Nasal Cannula 3.0 11/09/17 05:00 92 16 90/58 99 Nasal Cannula 3.0 11/09/17 04:27 98.0 11/09/17 04:00 87 11/09/17 04:00 98.0 85 16 89/48 99 Nasal Cannula 3.0 11/09/17 03:00 85 16 90/54 99 Nasal Cannula 3.0 11/09/17 02:00 91 16 97/69 99 Nasal Cannula 3.0 11/09/17 01:00 92 16 92/59 100 Nasal Cannula 3.0 11/09/17 00:00 97.9 96 16 98/54 99 Nasal Cannula 3.0 11/09/17 00:00 95 11/08/17 23:00 100 16 91/61 100 Nasal Cannula 3.0 11/08/17 22:00 105 16 91/61 98 Nasal Cannula 3.0 11/08/17 21:36 Nasal Cannula 3.0 32 11/08/17 21:36 100 Nasal Cannula 3.0 32 11/08/17 21:00 104 16 94/55 100 Nasal Cannula 3.0 11/08/17 20:00 102 11/08/17 20:00 98.0 101 14 100/82 100 Nasal Cannula 3.0 11/08/17 19:00 98 11 87/51 100 Nasal Cannula 3.0 11/08/17 18:00 99 13 94/58 100 Nasal Cannula 3.0 11/08/17 17:00 98 16 92/64 100 Nasal Cannula 3.0 11/08/17 16:00 96 15 90/59 100 Nasal Cannula 3.0 11/08/17 16:00 106 11/08/17 15:00 98.8 104 14 93/56 100 Nasal Cannula 3.0 11/08/17 14:21 95 16 94/57 100 Nasal Cannula 3.0 11/08/17 14:00 95 16 94/57 100 Nasal Cannula 3.0 11/08/17 13:00 94 11 104/64 99 Nasal Cannula 3.0 11/08/17 12:00 98.8 96 12 99/55 100 Nasal Cannula 3.0 11/08/17 12:00 106 11/08/17 11:00 100 12 101/74 99 Nasal Cannula 3.0 Status: awake Condition: critical HEENT: atraumatic Neck: full ROM Lungs: clear, chest wall tender Heart: HR/BP stable, HR/BP unstable Abdomen: soft, non-tender Extremities: no C/C/E, edema Accucheck: 137 Critical Care - Subjective ROS Limited/Unobtainable: No Condition: critical EKG Rhythm: Sinus Rhythm FI02: 32 Sputum Amount: None I&O: Intake and Output 11/08/17 11/09/17 19:00 07:00 Intake Total 1100.0 ml 1667.5 ml Output Total 610 ml 600 ml Balance 490.0 ml 1067.5 ml IV Total 1100.0 ml 1667.5 ml Output Urine Total 340 ml 340 ml Gastric Drainage Total 50 ml Drainage Total 270 ml 210 ml CXR: BALDOMERO Labs: Laboratory Tests Test 11/09/17 04:55 White Blood Count 8.5 K/UL (4.8-10.8) # Red Blood Count 3.36 M/UL (4.20-5.40) L Hemoglobin 10.5 G/DL (12.0-16.0) L Hematocrit 30.4 % (37.0-47.0) L Mean Corpuscular Volume 90 FL (80-99) Mean Corpuscular Hemoglobin 31.3 PG (27.0-31.0) H Mean Corpuscular Hemoglobin Concent 34.6 G/DL (32.0-36.0) Red Cell Distribution Width 12.2 % (11.6-14.8) Platelet Count 235 K/UL (150-450) Mean Platelet Volume 7.7 FL (6.5-10.1) Neutrophils (%) (Auto) 82.7 % (45.0-75.0) H Lymphocytes (%) (Auto) 8.1 % (20.0-45.0) L Monocytes (%) (Auto) 8.0 % (1.0-10.0) Eosinophils (%) (Auto) 0.0 % (0.0-3.0) Basophils (%) (Auto) 1.1 % (0.0-2.0) Prothrombin Time 12.3 SEC (9.30-11.50) H Prothromb Time International Ratio 1.2 (0.9-1.1) H Activated Partial Thromboplast Time 35 SEC (23-33) H Sodium Level 135 MMOL/L (136-145) L Potassium Level 4.0 MMOL/L (3.5-5.1) Chloride Level 105 MMOL/L (98-107) Carbon Dioxide Level 30 MMOL/L (21-32) Anion Gap 0 mmol/L (5-15) L Blood Urea Nitrogen 9 mg/dL (7-18) Creatinine 0.8 MG/DL (0.55-1.30) Estimat Glomerular Filtration Rate > 60 mL/min (>60) Glucose Level 127 MG/DL (74-106) H Calcium Level 7.7 MG/DL (8.5-10.1) L Phosphorus Level 3.0 MG/DL (2.5-4.9) Magnesium Level 2.2 MG/DL (1.8-2.4) Total Bilirubin 0.3 MG/DL (0.2-1.0) Aspartate Amino Transf (AST/SGOT) 28 U/L (15-37) Alanine Aminotransferase (ALT/SGPT) 24 U/L (12-78) Alkaline Phosphatase 28 U/L (46-116) L Total Protein 4.7 G/DL (6.4-8.2) L Albumin 1.7 G/DL (3.4-5.0) L Globulin 3.0 g/dL Albumin/Globulin Ratio 0.6 (1.0-2.7) L Triglycerides Level 34 MG/DL (30-150) ZARRABI,MIRALI Nov 09, 2017 10:22
--- NOTE | 2017-11-09 12:42 | General Progress Note ---
Progress Note Progress Note Surgery: doing well. comfortable. pain 02/07 but improving. no n/v/f/c. afebrile, HD stable, labs improved. Blood pressure in the 80-90's systolic. that is likely her baseline given size , BMI, medical condition. she is completely asymptomatic urine output improved NG tube output bilious NICOLE drains serous POD #2 s/p ex lap with Billroth 2. recovering -Strict NPO -IV fluids and TPN for total fluid goal of 125cc/hr -PICC line today for TPN -cont IV Abx -ambulate and oob. okay to do so with current vitals -melara to stay in -drains to stay in -NG tube to Torrey Sutton Nov 09, 2017 12:42
[2017-11-09] MEDS ORDERED: Fat Emulsion Iv 20% 192 ML in Tpn 1,368 ML IV SCH ×5 (13:00→20:00)
[2017-11-09] MEDS ORDERED: Heparin 2000 units/Ns 1000ml IV ONE (13:30)
[2017-11-09] MEDS ORDERED: Lidocaine 1% Plain 30 ml INJ ONE (13:30)
--- NOTE | 2017-11-09 16:28 | Diagnostic Imaging Report ---
Indications: Needs long-term IV access Technique: Procedure performed at bedside. Procedural timeout performed. Ultrasound confirms patent compressible left great vein. Total sterile technique, including sterile probe cover and sterile gel, sterile gloves, hand hygiene, hat, mask,, sterile gown, large sterile drape, and preparation with 2% chlorhexidine utilized. Local anesthesia with 1% lidocaine. Under real-time ultrasound guidance, puncture acute vein using 21-gauge needle, passage 0.018 guidewire, exchange for 5 Hungarian peel-away sheath. 5 Hungarian Bard dual-lumen power PICC cut to 39 cm. It was inserted through the peel-away sheath. Peel-away sheath and guidewire removed. Catheter fixed to the skin. Both catheter ports aspirated and flushed. Patient tolerated procedure well, without immediate complication. Followup chest x-ray obtained, documents catheter tip position at the high right atrium Impression: Successful bedside placement of left arm PICC under sonographic guidance, as described above.
[2017-11-09] MEDS ORDERED: Dextrose 10% 1,000 ML IV PRN (20:00)
[2017-11-09] MEDS ORDERED: Dyna-Hex 2% Top Sol 2oz TOPIC SCH (20:00)
[2017-11-09] MEDS: Hydromorphone 0.5mg/0.5ml inj IVP PRN (20:51)
[2017-11-09] MEDS: DiphenhydrAMINE 50mg/ml Inj IVP PRN (22:19)
[2017-11-10] VITALS (18 sets, daily range): BP systolic 85–103; BP diastolic 50–82
[2017-11-10] MEDS: NovoLOG Insulin Flexpen SUBQ SCH ×4 (00:30→18:00)
[2017-11-10] MEDS: Piperacillin/Tazobactam 3.375 GM in NS 110 ML IVPB SCH ×3 (02:14→18:09)
[2017-11-10] MEDS: Hydromorphone 0.5mg/0.5ml inj IVP PRN (03:16)
[2017-11-10] MEDS: DiphenhydrAMINE 50mg/ml Inj IVP PRN (05:25)
[2017-11-10 05:37] LABS: BASOPHILS % (AUTO) 0.8 % (0.0-2.0); EOSINOPHILS % (AUTO) 0.2 % (0.0-3.0); HEMATOCRIT 27.8 % (37.0-47.0); HEMOGLOBIN 9.4 G/DL (12.0-16.0); MEAN CORPUSCULAR VOLUME 92 FL (80-99); MONOCYTES % (AUTO) 5.7 % (1.0-10.0); NEUTROPHILS % (AUTO) 84.3 % (45.0-75.0); PLATELET COUNT 221 K/UL (150-450); RED BLOOD COUNT 3.01 M/UL (4.20-5.40); RED CELL DISTRIBUTION WIDTH 12.1 % (11.6-14.8); WHITE BLOOD COUNT 7.1 K/UL (4.8-10.8)
[2017-11-10 06:01] LABS: ALANINE AMINOTRANSFERASE 18 U/L (12-78); ALBUMIN 1.5 G/DL (3.4-5.0); ALBUMIN/GLOBULIN RATIO 0.5 (1.0-2.7); ALKALINE PHOSPHATASE 28 U/L (46-116); ANION GAP 2 mmol/L (5-15); ASPARTATE AMINO TRANSFERASE 28 U/L (15-37); BILIRUBIN,TOTAL 0.1 MG/DL (0.2-1.0); BLOOD UREA NITROGEN 7 mg/dL (7-18); CARBON DIOXIDE 28 MMOL/L (21-32); CHLORIDE 108 MMOL/L (98-107); CHOLESTEROL 72 MG/DL (< 200); CREATININE 0.7 MG/DL (0.55-1.30); HDL CHOLESTEROL 30 MG/DL (40-60); PHOSPHORUS 2.3 MG/DL (2.5-4.9); POTASSIUM 4.5 MMOL/L (3.5-5.1); SODIUM 138 MMOL/L (136-145); TRIGLYCERIDES 55 MG/DL (30-150)
[2017-11-10] MEDS: HYDROmorphone 1mg/ml Carpuject IVP PRN (06:46)
--- NOTE | 2017-11-10 07:32 | Pulmonolgy Critical Care Note ---
Critical Care - Asmt/Plan Problems: (1) Shock (2) Peritonitis (acute) generalized (3) Perforated gastric ulcer Respiratory: monitor respiratory rate, adjust FIO2, CXR Cardiac: continue to monitor HR/BP Renal: F/U I&O Infectious Disease: check cultures Gastrointestinal: hold feedings, other - on TPN Endocrine: monitor blood sugar, continue sliding scale insulin Hematologic: monitor H/H, transfuse if hgb<8.5 Neurologic: PRN Morphine, keep patient comfortable Affect: PRN ativan Prophylaxis: Protonix, Heparin Time Spent (Minutes): 40 Notes Reviewed: hand bunch maker, renal Discussed with: nurses, consultants, case advocatemanager cleaning - Objective Last 24 Hour Vital Signs Date Time Temp Pulse Resp B/P (MAP) Pulse Ox O2 Delivery O2 Flow Rate FiO2 11/10/17 07:00 89 12 94/60 100 Nasal Cannula 3.0 11/10/17 06:00 85 15 101/67 100 Nasal Cannula 3.0 11/10/17 05:00 98.0 80 13 87/54 100 Nasal Cannula 3.0 11/10/17 04:00 81 12 85/51 100 Nasal Cannula 3.0 11/10/17 04:00 89 11/10/17 03:00 80 16 93/60 99 Nasal Cannula 3.0 11/10/17 02:00 90 16 92/62 100 Nasal Cannula 3.0 11/10/17 01:00 86 14 103/82 100 Nasal Cannula 3.0 11/10/17 00:00 74 11/10/17 00:00 97.8 83 12 87/56 99 Nasal Cannula 3.0 11/09/17 23:00 80 12 86/49 100 Nasal Cannula 3.0 11/09/17 22:00 82 16 85/50 99 Nasal Cannula 3.0 11/09/17 21:00 89 16 97/65 99 Nasal Cannula 3.0 11/09/17 20:00 85 11/09/17 20:00 98.6 89 16 94/61 97 Nasal Cannula 3.0 11/09/17 19:30 99 Nasal Cannula 2.0 28 11/09/17 19:30 Nasal Cannula 2.0 28 11/09/17 19:00 88 18 96/66 99 Nasal Cannula 3.0 11/09/17 18:00 94 16 98/61 100 Nasal Cannula 3.0 11/09/17 17:00 95 14 86/58 100 Nasal Cannula 3.0 11/09/17 16:00 82 11/09/17 16:00 98.4 85 14 89/47 99 Nasal Cannula 3.0 11/09/17 15:00 99 14 94/53 100 Nasal Cannula 3.0 11/09/17 14:00 90 16 86/59 96 Nasal Cannula 3.0 11/09/17 13:00 95 15 89/47 97 Nasal Cannula 3.0 11/09/17 12:00 90 11/09/17 12:00 98.5 85 15 87/48 100 Nasal Cannula 3.0 11/09/17 11:00 82 18 81/49 99 Nasal Cannula 3.0 11/09/17 10:00 89 13 86/56 100 Nasal Cannula 3.0 11/09/17 09:00 86 13 84/50 100 Nasal Cannula 3.0 11/09/17 08:00 98.4 88 13 84/53 100 Nasal Cannula 3.0 11/09/17 08:00 101 17 100 11/09/17 07:58 87 Status: awake Condition: critical HEENT: atraumatic Neck: full ROM Lungs: chest wall tender Heart: HR/BP unstable, regular Abdomen: soft, non-tender, feeding tube Extremities: edema Accucheck: 107 Critical Care - Subjective ROS Limited/Unobtainable: No ICU Day: 3 Condition: improving FI02: 28 Sputum Amount: None Fluids: d5 ns +kcl at 125 I&O: Intake and Output 11/09/17 11/10/17 19:00 07:00 Intake Total 1422.5 ml 1597.5 ml Output Total 960 ml 470 ml Balance 462.5 ml 1127.5 ml IV Total 1362.5 ml 1577.5 ml Other 60 ml 20 ml Output Urine Total 410 ml 320 ml Drainage Total 350 ml 150 ml Other 200 ml Labs: Laboratory Tests Test 11/10/17 05:00 White Blood Count 7.1 K/UL (4.8-10.8) Red Blood Count 3.01 M/UL (4.20-5.40) L Hemoglobin 9.4 G/DL (12.0-16.0) L Hematocrit 27.8 % (37.0-47.0) L Mean Corpuscular Volume 92 FL (80-99) Mean Corpuscular Hemoglobin 31.2 PG (27.0-31.0) H Mean Corpuscular Hemoglobin Concent 33.9 G/DL (32.0-36.0) Red Cell Distribution Width 12.1 % (11.6-14.8) Platelet Count 221 K/UL (150-450) Mean Platelet Volume 7.2 FL (6.5-10.1) Neutrophils (%) (Auto) 84.3 % (45.0-75.0) H Lymphocytes (%) (Auto) 9.0 % (20.0-45.0) L Monocytes (%) (Auto) 5.7 % (1.0-10.0) Eosinophils (%) (Auto) 0.2 % (0.0-3.0) Basophils (%) (Auto) 0.8 % (0.0-2.0) Erythrocyte Sedimentation Rate Pending Sodium Level 138 MMOL/L (136-145) Potassium Level 4.5 MMOL/L (3.5-5.1) Chloride Level 108 MMOL/L (98-107) H Carbon Dioxide Level 28 MMOL/L (21-32) Anion Gap 2 mmol/L (5-15) L Blood Urea Nitrogen 7 mg/dL (7-18) Creatinine 0.7 MG/DL (0.55-1.30) Estimat Glomerular Filtration Rate > 60 mL/min (>60) Glucose Level 83 MG/DL (74-106) Calcium Level 8.0 MG/DL (8.5-10.1) L Phosphorus Level 2.3 MG/DL (2.5-4.9) L Magnesium Level 2.1 MG/DL (1.8-2.4) Total Bilirubin 0.1 MG/DL (0.2-1.0) L Aspartate Amino Transf (AST/SGOT) 28 U/L (15-37) Alanine Aminotransferase (ALT/SGPT) 18 U/L (12-78) Alkaline Phosphatase 28 U/L (46-116) L C-Reactive Protein, Quantitative 22.9 mg/dL (0.00-0.90) H Total Protein 4.7 G/DL (6.4-8.2) L Albumin 1.5 G/DL (3.4-5.0) L Globulin 3.2 g/dL Albumin/Globulin Ratio 0.5 (1.0-2.7) L Triglycerides Level 55 MG/DL (30-150) Cholesterol Level 72 MG/DL (< 200) LDL Cholesterol 27 mg/dL (<100) HDL Cholesterol 30 MG/DL (40-60) L Cholesterol/HDL Ratio 2.4 (3.3-4.4) L PENNY GOMEZ Nov 10, 2017 07:32
[2017-11-10] MEDS ORDERED: Sodium Chloride 500ML 550 ML IV SCH (08:30)
[2017-11-10] MEDS: Pantoprazole Inj IVP SCH ×2 (10:35→18:08)
[2017-11-10] MEDS ORDERED: Sodium Phosphate 20 MM in NS 275 ML IVPB ONE (11:00)
--- NOTE | 2017-11-10 15:41 | General Progress Note ---
Progress Note Progress Note Surgery: NG tube noted to be dislodged. patient states she does not know how it happened. fortunately stable still. do not recommend reinsertion given recent surgical finding and care. afebrile, HD stable, recovering. labs okay. PICC on TPN now drains with serous output wound c/d/i. okay to downgrade to 3E Strict NPO IV fluids IV Abx Ambulate and OOB drain care and management TPN and PICC Torrey Burton Nov 10, 2017 15:41
[2017-11-10] MEDS ORDERED: Tubing IV Secondary IV ONE (16:41)
[2017-11-10] MEDS ORDERED: NS Irrig 1000ml ONE (16:41)
[2017-11-10] MEDS ORDERED: 1/2 NS 1000ml IV ONE (16:41)
[2017-11-10] MEDS ORDERED: NS 275ml ONE (16:41)
[2017-11-10] MEDS ORDERED: NS 500ML ONE (16:41)
[2017-11-10] MEDS: Sodium Chloride 500ML 550 ML IV SCH (17:00)
[2017-11-10] MEDS ORDERED: Miralax 17gm pkt ORAL PRN (18:00)
[2017-11-10] MEDS ORDERED: Hydromorphone 0.5mg/0.5ml inj IVP PRN (18:00)
[2017-11-10] MEDS ORDERED: DiphenhydrAMINE 50mg/ml Inj IVP PRN (18:00)
[2017-11-10] MEDS ORDERED: Acetaminophen 650 MG SUPP RECTAL PRN (18:30)
[2017-11-10] MEDS ORDERED: Dextrose 10% 1,000 ML IV PRN (20:00)
[2017-11-10] MEDS: Dyna-Hex 2% Top Sol 2oz TOPIC SCH (20:41)
[2017-11-10] MEDS: Fat Emulsion Iv 20% 192 ML in Tpn 1,368 ML IV SCH (20:57)
[2017-11-11] MEDS: Sodium Chloride 500ML 550 ML IV SCH ×3 (00:41→20:49)
[2017-11-11] MEDS: Piperacillin/Tazobactam 3.375 GM in NS 110 ML IVPB SCH ×3 (02:45→17:34)
[2017-11-11 04:00] VITALS: BP 107/69
[2017-11-11] MEDS: NovoLOG Insulin Flexpen SUBQ SCH ×4 (06:00→17:47)
[2017-11-11 06:15] LABS: BASOPHILS % (AUTO) 0.7 % (0.0-2.0); EOSINOPHILS % (AUTO) 1.1 % (0.0-3.0); HEMATOCRIT 28.3 % (37.0-47.0); HEMOGLOBIN 9.3 G/DL (12.0-16.0); LYMPHOCYTES % (AUTO) 26.3 % (20.0-45.0); MEAN CORPUSCULAR VOLUME 91 FL (80-99); MONOCYTES % (AUTO) 9.4 % (1.0-10.0); NEUTROPHILS % (AUTO) 62.5 % (45.0-75.0); PLATELET COUNT 237 K/UL (150-450); RED BLOOD COUNT 3.12 M/UL (4.20-5.40); RED CELL DISTRIBUTION WIDTH 12.3 % (11.6-14.8); WHITE BLOOD COUNT 4.9 K/UL (4.8-10.8)
[2017-11-11 06:32] LABS: ALANINE AMINOTRANSFERASE 16 U/L (12-78); ALKALINE PHOSPHATASE 37 U/L (46-116); ANION GAP 4 mmol/L (5-15); ASPARTATE AMINO TRANSFERASE 20 U/L (15-37); BILIRUBIN,TOTAL 0.2 MG/DL (0.2-1.0); BLOOD UREA NITROGEN 6 mg/dL (7-18); CALCIUM 7.6 MG/DL (8.5-10.1); CARBON DIOXIDE 26 MMOL/L (21-32); CHLORIDE 109 MMOL/L (98-107); CREATININE 0.5 MG/DL (0.55-1.30); PHOSPHORUS 3.3 MG/DL (2.5-4.9); POTASSIUM 3.6 MMOL/L (3.5-5.1); SODIUM 139 MMOL/L (136-145)
[2017-11-11 08:01] VITALS: BP 93/59
[2017-11-11 08:45] LABS: ALBUMIN 1.5 G/DL (3.4-5.0)
[2017-11-11 08:47] LABS: ALBUMIN/GLOBULIN RATIO 0.5 (1.0-2.7)
[2017-11-11] MEDS: Pantoprazole Inj IVP SCH ×2 (08:50→17:33)
--- NOTE | 2017-11-11 09:41 | Pulmonology Progress Note ---
Assessment/Plan Problems: (1) Perforated gastric ulcer (2) Adnexal mass Assessment/Plan tpn symptomatic treatment check pathology f/u by surgery Subjective ROS Limited/Unobtainable: No Constitutional: Reports: no symptoms HEENT: Repors: no symptoms Allergies: Coded Allergies: No Known Allergies (Unverified , 11/07/17) Objective Last 24 Hour Vital Signs Date Time Temp Pulse Resp B/P (MAP) Pulse Ox O2 Delivery O2 Flow Rate FiO2 11/11/17 08:01 98.0 81 18 93/59 100 Room Air 11/11/17 04:00 97.7 86 18 107/69 100 Room Air 11/10/17 20:00 98.3 88 17 89/62 98 Room Air 11/10/17 16:00 98.8 86 14 86/59 98 Nasal Cannula 3.0 11/10/17 16:00 82 11/10/17 15:00 88 13 88/53 100 Nasal Cannula 3.0 11/10/17 14:00 79 14 94/60 97 Nasal Cannula 3.0 11/10/17 13:00 84 12 95/55 98 Nasal Cannula 3.0 11/10/17 12:00 99.1 91 14 86/50 98 Nasal Cannula 3.0 11/10/17 12:00 83 11/10/17 11:00 89 14 87/66 98 Nasal Cannula 3.0 11/10/17 10:00 87 15 90/54 96 Nasal Cannula 3.0 Intake and Output 11/10/17 11/11/17 19:00 07:00 Intake Total 1581.046 ml 1260 ml Output Total 605 ml 1065 ml Balance 976.046 ml 195 ml IV Total 1541.046 ml 1260 ml Other 40 ml Output Urine Total 295 ml 800 ml Drainage Total 310 ml 265 ml Objective General Appearance: WN/WD HEENT: normocephalic, atraumatic Respiratory/Chest: chest wall non-tender, normal breath sounds Cardiovascular: normal peripheral pulses, normal rate Abdomen: soft, non tender, no organomegaly Genitourinary: normal external genitalia Extremities: no clubbing Skin: no rash, no lesions Neurologic/Psychiatric: 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 normal, Lymphatic: no neck adenopathy Laboratory Tests 11/11/17 06:00: White Blood Count 4.9, Red Blood Count 3.12L, Hemoglobin 9.3L, Hematocrit 28.3L , Mean Corpuscular Volume 91, Mean Corpuscular Hemoglobin 29.8, Mean Corpuscular Hemoglobin Concent 32.9, Red Cell Distribution Width 12.3, Platelet Count 237, Mean Platelet Volume 7.6, Neutrophils (%) (Auto) 62.5, Lymphocytes (% ) (Auto) 26.3, Monocytes (%) (Auto) 9.4, Eosinophils (%) (Auto) 1.1, Basophils ( %) (Auto) 0.7, Erythrocyte Sedimentation Rate 82H, Sodium Level 139, Potassium Level 3.6, Chloride Level 109H, Carbon Dioxide Level 26, Anion Gap 4L, Blood Urea Nitrogen 6L, Creatinine 0.5L, Estimat Glomerular Filtration Rate > 60, Glucose Level 88, Calcium Level 7.6L, Phosphorus Level 3.3, Magnesium Level 1.6L , Total Bilirubin 0.2, Aspartate Amino Transf (AST/SGOT) 20, Alanine Aminotransferase (ALT/SGPT) 16, Alkaline Phosphatase 37L, C-Reactive Protein, Quantitative 17.2H, Total Protein 4.7L, Albumin 1.5L, Globulin 3.2, Albumin/ Globulin Ratio 0.5L Current Medications Medications (Trade) Dose Ordered Sig/Kina Route PRN Reason Start Time Stop Time Status Last Admin Dose Admin Acetaminophen (Tylenol) 650 mg Q4H PRN RECTAL Mild Pain (Pain Scale 1-3) 11/10/17 18:30 12/08/17 02:29 Chlorhexidine Gluconate (Jenn-Hex 2%) 1 applic Q24H TOPIC 11/10/17 20:00 12/09/17 19:59 11/10/17 20:41 Dextrose 1,000 ml @ 0 mls/hr Q24H PRN IV TPN interrupted or unavailable 11/10/17 20:00 12/09/17 19:59 Dextrose (Dextrose 50%) STAT PRN IV Hypoglycemia 11/10/17 17:15 12/08/17 17:14 Diphenhydramine HCl (Benadryl) 12.5 mg Q6H PRN IVP Itching/Pruritis 11/10/17 18:00 12/08/17 05:59 Fat Emulsion Intravenous 192 ml/Amino Acids/ Electrolytes/ Dextrose 1,560 ml @ 65 mls/hr Q24H IV 11/10/17 20:00 12/09/17 19:59 11/10/17 20:57 Fluconazole/ Sodium Chloride 100 ml @ 100 mls/hr Q24H IV 11/11/17 06:00 11/15/17 05:59 11/11/17 06:00 Hydromorphone HCl (Dilaudid) 0.5 mg Q3H PRN IVP Pain Score 1-3 11/10/17 18:00 11/15/17 05:59 Hydromorphone HCl (Dilaudid) 1 mg Q3H PRN IVP pain score 4-6 11/10/17 18:00 11/15/17 05:59 Hydromorphone HCl (Dilaudid) 2 mg Q3H PRN IVP pain score 7-10 11/10/17 18:00 11/15/17 05:59 11/11/17 06:39 Insulin Aspart (NovoLOG) Q6HR SUBQ 11/10/17 18:00 12/10/17 00:00 Magnesium Sulfate 100 ml @ 100 mls/hr Q1H IVPB 11/11/17 09:00 11/11/17 10:59 11/11/17 08:50 Metronidazole 100 ml @ 100 mls/hr Q8HR IVPB 11/10/17 22:00 11/15/17 09:29 11/11/17 06:46 Ondansetron HCl (Zofran) 4 mg Q6H PRN IVP Nausea & Vomiting 11/10/17 18:00 12/08/17 05:59 Pantoprazole (Protonix) 40 mg BID IVP 11/10/17 18:00 12/08/17 18:59 11/11/17 08:50 Phytonadione (Vitamin K) 10 mg QWEEK SUBQ 11/15/17 09:00 12/15/17 08:59 Piperacillin Sod/ Tazobactam Sod 3.375 gm/Sodium Chloride 110 ml @ 27.5 mls/hr Q8H IVPB 11/10/17 18:00 11/17/17 17:59 11/11/17 02:45 Polyethylene Glycol (Miralax) 17 gm HSPRN PRN ORAL Constipation 11/10/17 18:00 12/10/17 17:59 Sodium Chloride 550 ml @ 60 mls/hr Q9H10M IV 11/10/17 17:00 12/10/17 08:29 11/11/17 00:41 PENNY GOMEZ Nov 11, 2017 09:41
[2017-11-11] MEDS: HYDROmorphone 1mg/ml Carpuject IVP PRN ×4 (10:17→21:22)
[2017-11-11 12:00] VITALS: BP 98/61
--- NOTE | 2017-11-11 15:24 | General Progress Note ---
Progress Note Progress Note Surgery: no acute events. doing okay. comfortable. minimal pain. no n/v/f/c. no flatus or BM drains with serous output wound c/d/i exam with mild distention but soft. afebrile, HD stable, labs reviewed on TPN continue with current care and management STRICT NPO IV fluids + TPN = total fluids 125cc/hr ABX - Zosyn, Flagyl, Fluc d/c melara ambulate and oob will plan for upper GI study with contrast this week to evaluate B2 surgery Torrey Burton Nov 11, 2017 15:24
[2017-11-11 20:00] VITALS: BP 113/80
[2017-11-11] MEDS: Dyna-Hex 2% Top Sol 2oz TOPIC SCH (20:49)
[2017-11-11] MEDS: Fat Emulsion Iv 20% 192 ML in Tpn 1,368 ML IV SCH (21:18)
[2017-11-12] VITALS: BP 100/69
[2017-11-12] MEDS: Piperacillin/Tazobactam 3.375 GM in NS 110 ML IVPB SCH ×3 (03:01→17:22)
[2017-11-12 04:00] VITALS: BP 108/73
[2017-11-12] MEDS: HYDROmorphone 1mg/ml Carpuject IVP PRN ×3 (04:44→17:23)
[2017-11-12] MEDS: Sodium Chloride 500ML 550 ML IV SCH ×2 (05:40→14:30)
[2017-11-12 05:42] LABS: BASOPHILS % (AUTO) 1.4 % (0.0-2.0); HEMATOCRIT 29.6 % (37.0-47.0); HEMOGLOBIN 9.9 G/DL (12.0-16.0); LYMPHOCYTES % (AUTO) 24.4 % (20.0-45.0); MEAN CORPUSCULAR VOLUME 90 FL (80-99); MONOCYTES % (AUTO) 11.1 % (1.0-10.0); NEUTROPHILS % (AUTO) 62.1 % (45.0-75.0); PLATELET COUNT 246 K/UL (150-450); RED CELL DISTRIBUTION WIDTH 12.1 % (11.6-14.8); WHITE BLOOD COUNT 3.6 K/UL (4.8-10.8)
[2017-11-12] MEDS: NovoLOG Insulin Flexpen SUBQ SCH ×4 (06:00→17:22)
[2017-11-12 06:04] LABS: ALANINE AMINOTRANSFERASE 15 U/L (12-78); ALBUMIN 1.4 G/DL (3.4-5.0); ALBUMIN/GLOBULIN RATIO 0.4 (1.0-2.7); ALKALINE PHOSPHATASE 41 U/L (46-116); ANION GAP 6 mmol/L (5-15); ASPARTATE AMINO TRANSFERASE 21 U/L (15-37); BILIRUBIN,TOTAL 0.2 MG/DL (0.2-1.0); BLOOD UREA NITROGEN 5 mg/dL (7-18); CALCIUM 8.2 MG/DL (8.5-10.1); CARBON DIOXIDE 28 MMOL/L (21-32); CHLORIDE 105 MMOL/L (98-107); CREATININE 0.5 MG/DL (0.55-1.30); PHOSPHORUS 3.6 MG/DL (2.5-4.9); POTASSIUM 3.7 MMOL/L (3.5-5.1); SODIUM 139 MMOL/L (136-145)
[2017-11-12 07:24] LABS: % IRON SATURATION 41 % (15-50); IRON 39 ug/dL (50-175); TOTAL IRON BINDING CAPACITY 96 ug/dL (250-450)
[2017-11-12 07:25] LABS: LACTATE DEHYDROGENASE 199 U/L (81-234)
[2017-11-12 07:54] VITALS: BP 98/63
[2017-11-12] MEDS: Pantoprazole Inj IVP SCH ×2 (09:26→17:22)
--- NOTE | 2017-11-12 12:34 | General Progress Note ---
Progress Note Progress Note Surgery: no acute events. comfortable. no n/v/f/c. labs reviewed. cytology of peritoneal fluid negative. CA 125 mildly elevated exam benign. drains with serous output -continue current care and management plan for upper GI swallow study tomorrow Torrey Burton Nov 12, 2017 12:34
--- NOTE | 2017-11-12 13:25 | Pulmonology Progress Note ---
Assessment/Plan Problems: (1) Perforated gastric ulcer (2) Adnexal mass Assessment/Plan tpn symptomatic treatment cytology negative. f/u by surgery Subjective ROS Limited/Unobtainable: No Constitutional: Reports: no symptoms HEENT: Repors: other Respiratory: Reports: no symptoms Allergies: Coded Allergies: No Known Allergies (Unverified , 11/07/17) Objective Last 24 Hour Vital Signs Date Time Temp Pulse Resp B/P (MAP) Pulse Ox O2 Delivery O2 Flow Rate FiO2 11/12/17 07:54 98.4 91 18 98/63 98 Room Air 11/12/17 04:10 99 Nasal Cannula 2.0 28 11/12/17 04:10 Nasal Cannula 3.0 32 11/12/17 04:00 98.7 91 18 108/73 98 Room Air 11/12/17 00:00 98.5 86 17 100/69 99 Room Air 11/11/17 20:00 97.9 84 17 113/80 99 Room Air Intake and Output 11/11/17 11/12/17 19:00 07:00 Intake Total 1225.0 ml 1125 ml Output Total 840 ml 1145 ml Balance 385.0 ml -20 ml IV Total 1225.0 ml 1125 ml Output Urine Total 600 ml 900 ml Drainage Total 240 ml 245 ml Objective General Appearance: WN/WD HEENT: normocephalic, atraumatic Respiratory/Chest: chest wall non-tender, normal breath sounds Cardiovascular: normal peripheral pulses, normal rate Abdomen: soft, non tender, no organomegaly Genitourinary: normal external genitalia Extremities: no clubbing Skin: no rash, no lesions 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, Lymphatic: no neck adenopathy Laboratory Tests 11/12/17 05:00: White Blood Count 3.6L, Red Blood Count 3.30L, Hemoglobin 9.9L, Hematocrit 29.6L , Mean Corpuscular Volume 90, Mean Corpuscular Hemoglobin 30.1, Mean Corpuscular Hemoglobin Concent 33.5, Red Cell Distribution Width 12.1, Platelet Count 246, Mean Platelet Volume 7.1, Neutrophils (%) (Auto) 62.1, Lymphocytes (% ) (Auto) 24.4, Monocytes (%) (Auto) 11.1H, Eosinophils (%) (Auto) 1.0, Basophils (%) (Auto) 1.4, Differential Total Cells Counted 100, Neutrophils % ( Manual) 55, Lymphocytes % (Manual) 32, Monocytes % (Manual) 8, Eosinophils % ( Manual) 0, Basophils % (Manual) 0, Band Neutrophils 5, Platelet Estimate Adequate, Platelet Morphology Normal, Hypochromasia 1+, Erythrocyte Sedimentation Rate 103H, Reticulocyte Count 0.7, Prothrombin Time 10.6, Prothromb Time International Ratio 1.0, Activated Partial Thromboplast Time 31, Sodium Level 139, Potassium Level 3.7, Chloride Level 105, Carbon Dioxide Level 28, Anion Gap 6, Blood Urea Nitrogen 5L, Creatinine 0.5L, Estimat Glomerular Filtration Rate > 60, Glucose Level 96, Calcium Level 8.2L, Phosphorus Level 3.6 , Magnesium Level 1.6L, Iron Level 39L, Total Iron Binding Capacity 96L, Percent Iron Saturation 41, Unsaturated Iron Binding 57L, Total Bilirubin 0.2, Aspartate Amino Transf (AST/SGOT) 21, Alanine Aminotransferase (ALT/SGPT) 15, Alkaline Phosphatase 41L, Lactate Dehydrogenase 199, Total Protein 4.8L, Albumin 1.4L, Globulin 3.4, Albumin/Globulin Ratio 0.4L, Vitamin B12 Level 697, Folate 5.6L Current Medications Medications (Trade) Dose Ordered Sig/Kina Route PRN Reason Start Time Stop Time Status Last Admin Dose Admin Acetaminophen (Tylenol) 650 mg Q4H PRN RECTAL Mild Pain (Pain Scale 1-3) 11/10/17 18:30 12/08/17 02:29 Chlorhexidine Gluconate (Jenn-Hex 2%) 1 applic Q24H TOPIC 11/10/17 20:00 12/09/17 19:59 11/11/17 20:49 Dextrose 1,000 ml @ 0 mls/hr Q24H PRN IV TPN interrupted or unavailable 11/10/17 20:00 12/09/17 19:59 Dextrose (Dextrose 50%) STAT PRN IV Hypoglycemia 11/10/17 17:15 12/08/17 17:14 Diphenhydramine HCl (Benadryl) 12.5 mg Q6H PRN IVP Itching/Pruritis 11/10/17 18:00 12/08/17 05:59 Fat Emulsion Intravenous 192 ml/Amino Acids/ Electrolytes/ Dextrose 1,560 ml @ 65 mls/hr Q24H IV 11/10/17 20:00 12/09/17 19:59 11/11/17 21:18 Fluconazole/ Sodium Chloride 100 ml @ 100 mls/hr Q24H IV 11/11/17 06:00 11/15/17 05:59 11/12/17 06:23 Hydromorphone HCl (Dilaudid) 0.5 mg Q3H PRN IVP Pain Score 1-3 11/10/17 18:00 11/15/17 05:59 Hydromorphone HCl (Dilaudid) 1 mg Q3H PRN IVP pain score 4-6 11/10/17 18:00 11/15/17 05:59 11/12/17 09:27 Hydromorphone HCl (Dilaudid) 2 mg Q3H PRN IVP pain score 7-10 11/10/17 18:00 11/15/17 05:59 11/11/17 06:39 Insulin Aspart (NovoLOG) Q6HR SUBQ 11/10/17 18:00 12/10/17 00:00 11/12/17 12:10 Metronidazole 100 ml @ 100 mls/hr Q8HR IVPB 11/10/17 22:00 11/15/17 09:29 11/12/17 06:27 Ondansetron HCl (Zofran) 4 mg Q6H PRN IVP Nausea & Vomiting 11/10/17 18:00 12/08/17 05:59 Pantoprazole (Protonix) 40 mg BID IVP 11/10/17 18:00 12/08/17 18:59 11/12/17 09:26 Phytonadione (Vitamin K) 10 mg QWEEK SUBQ 11/15/17 09:00 12/15/17 08:59 Piperacillin Sod/ Tazobactam Sod 3.375 gm/Sodium Chloride 110 ml @ 27.5 mls/hr Q8H IVPB 11/10/17 18:00 11/17/17 17:59 11/12/17 10:58 Polyethylene Glycol (Miralax) 17 gm HSPRN PRN ORAL Constipation 11/10/17 18:00 12/10/17 17:59 Sodium Chloride 550 ml @ 60 mls/hr Q9H10M IV 11/10/17 17:00 12/10/17 08:29 11/12/17 05:40 PENNY GOMEZ Nov 12, 2017 13:25
[2017-11-12] MEDS: Dyna-Hex 2% Top Sol 2oz TOPIC SCH (21:14)
[2017-11-12] MEDS: Fat Emulsion Iv 20% 192 ML in Tpn 1,368 ML IV SCH (21:20)
[2017-11-13] VITALS: BP 102/71
[2017-11-13] MEDS: Sodium Chloride 500ML 550 ML IV SCH
[2017-11-13] MEDS: Piperacillin/Tazobactam 3.375 GM in NS 110 ML IVPB SCH ×3 (02:00→18:20)
[2017-11-13] MEDS: HYDROmorphone 1mg/ml Carpuject IVP PRN ×5 (05:28→21:52)
[2017-11-13] MEDS: NovoLOG Insulin Flexpen SUBQ SCH ×5 (06:00→23:52)
[2017-11-13 06:45] LABS: BASOPHILS % (AUTO) 1.5 % (0.0-2.0); EOSINOPHILS % (AUTO) 2.4 % (0.0-3.0); HEMATOCRIT 29.4 % (37.0-47.0); HEMOGLOBIN 9.9 G/DL (12.0-16.0); LYMPHOCYTES % (AUTO) 26.6 % (20.0-45.0); MEAN CORPUSCULAR VOLUME 90 FL (80-99); MONOCYTES % (AUTO) 16.7 % (1.0-10.0); NEUTROPHILS % (AUTO) 52.9 % (45.0-75.0); PLATELET COUNT 238 K/UL (150-450); RED BLOOD COUNT 3.26 M/UL (4.20-5.40); RED CELL DISTRIBUTION WIDTH 12.1 % (11.6-14.8); WHITE BLOOD COUNT 3.5 K/UL (4.8-10.8)
[2017-11-13 07:14] LABS: ALANINE AMINOTRANSFERASE 17 U/L (12-78); ALBUMIN 1.4 G/DL (3.4-5.0); ALBUMIN/GLOBULIN RATIO 0.4 (1.0-2.7); ALKALINE PHOSPHATASE 43 U/L (46-116); ANION GAP 5 mmol/L (5-15); ASPARTATE AMINO TRANSFERASE 19 U/L (15-37); BILIRUBIN,TOTAL 0.2 MG/DL (0.2-1.0); BLOOD UREA NITROGEN 5 mg/dL (7-18); CALCIUM 8.2 MG/DL (8.5-10.1); CARBON DIOXIDE 26 MMOL/L (21-32); CHLORIDE 105 MMOL/L (98-107); CREATININE 0.5 MG/DL (0.55-1.30); POTASSIUM 3.8 MMOL/L (3.5-5.1); SODIUM 136 MMOL/L (136-145)
[2017-11-13] MEDS: Pantoprazole Inj IVP SCH ×2 (08:54→18:20)
[2017-11-13] MEDS ORDERED: NS 275ml ONE (11:23)
[2017-11-13] MEDS ORDERED: NS 500ML ONE (11:23)
[2017-11-13] MEDS ORDERED: Tubing IV Secondary IV ONE (11:23)
[2017-11-13 12:05] VITALS: BP 106/76
--- NOTE | 2017-11-13 15:24 | General Progress Note ---
Progress Note Progress Note Surgery: doing okay. feels well. had upper GI study today and no leak noted! anastomosis patent! reviewed path. unfortunately gastric cancer with mets. very sad case. very unfortunate. i discussed findings with patient. spent 30-45 mins at bedside discussing findings with patient. initially in denial. kept discussing certain mushrooms and diets that will cure this for her. -cont npo -cont TPN+fluids -cont abx -cont ppi -will consult oncology for eval. Torrey Burton Nov 13, 2017 15:24
[2017-11-13 16:00] VITALS: BP 116/74
--- NOTE | 2017-11-13 16:29 | Diagnostic Imaging Report ---
Indication: Status post partial gastrectomy with Bilroth 2 gastrojejunostomy. Immediate postop Gastrografin study performed to exclude leak. FINDINGS: Trauma Manager film shows drains in the abdomen. Surgical skin zoie noted. Water-soluble contrast material was orally administered. Multiple images were then obtained fluoroscopically. The examination demonstrates contrast within the residual stomach lumen. Gastrojejunostomy is not well seen initially. When the patient was asked to drink in an upright position, the gastrojejunostomy was easily identified and contrast filled jejunum noted. The jejunal loops seen filled with contrast probably represents the efferent limb of the billroth 2 anastamosis. There was no contrast extravasation or leak. There was no evidence of obstruction. IMPRESSION: Demonstration of a partial gastrectomy with gastrojejunostomy noted. No evidence of a leak or obstruction.
--- NOTE | 2017-11-13 17:33 | Pulmonology Progress Note ---
Assessment/Plan Problems: (1) Perforated gastric ulcer (2) Adnexal mass Assessment/Plan tpn symptomatic treatment cytology negative. f/u by surgery Subjective ROS Limited/Unobtainable: No Constitutional: Reports: no symptoms HEENT: Repors: no symptoms Allergies: Coded Allergies: No Known Allergies (Unverified , 11/07/17) Objective Last 24 Hour Vital Signs Date Time Temp Pulse Resp B/P (MAP) Pulse Ox O2 Delivery O2 Flow Rate FiO2 11/13/17 00:00 98.1 85 18 102/71 98 Room Air Intake and Output 11/12/17 11/13/17 19:00 07:00 Intake Total 1120 ml Output Total 1410 ml 1120 ml Balance -1410 ml 0 ml IV Total 1120 ml Output Urine Total 1200 ml 900 ml Drainage Total 210 ml 220 ml Objective General Appearance: WN/WD HEENT: normocephalic, atraumatic Respiratory/Chest: chest wall non-tender, normal breath sounds Cardiovascular: normal peripheral pulses, normal rate Abdomen: soft, non tender, no organomegaly Genitourinary: normal external genitalia Extremities: no clubbing Skin: no rash, no lesions Neurologic/Psychiatric: carbider II-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 normal, Lymphatic: no neck adenopathy Laboratory Tests 11/13/17 06:00: White Blood Count 3.5L, Red Blood Count 3.26L, Hemoglobin 9.9L, Hematocrit 29.4L , Mean Corpuscular Volume 90, Mean Corpuscular Hemoglobin 30.5, Mean Corpuscular Hemoglobin Concent 33.7, Red Cell Distribution Width 12.1, Platelet Count 238, Mean Platelet Volume 7.2, Neutrophils (%) (Auto) 52.9, Lymphocytes (% ) (Auto) 26.6, Monocytes (%) (Auto) 16.7H, Eosinophils (%) (Auto) 2.4, Basophils (%) (Auto) 1.5, Sodium Level 136, Potassium Level 3.8, Chloride Level 105, Carbon Dioxide Level 26, Anion Gap 5, Blood Urea Nitrogen 5L, Creatinine 0.5L, Estimat Glomerular Filtration Rate > 60, Glucose Level 90, Calcium Level 8.2L, Total Bilirubin 0.2, Aspartate Amino Transf (AST/SGOT) 19, Alanine Aminotransferase (ALT/SGPT) 17, Alkaline Phosphatase 43L, Total Protein 4.9L, Albumin 1.4L, Globulin 3.5, Albumin/Globulin Ratio 0.4L Current Medications Medications (Trade) Dose Ordered Sig/Kina Route PRN Reason Start Time Stop Time Status Last Admin Dose Admin Acetaminophen (Tylenol) 650 mg Q4H PRN RECTAL Mild Pain (Pain Scale 1-3) 11/10/17 18:30 12/08/17 02:29 Chlorhexidine Gluconate (Jenn-Hex 2%) 1 applic Q24H TOPIC 11/10/17 20:00 12/09/17 19:59 11/12/17 21:14 Dextrose 1,000 ml @ 0 mls/hr Q24H PRN IV TPN interrupted or unavailable 11/10/17 20:00 12/09/17 19:59 Dextrose (Dextrose 50%) STAT PRN IV Hypoglycemia 11/10/17 17:15 12/08/17 17:14 Diphenhydramine HCl (Benadryl) 12.5 mg Q6H PRN IVP Itching/Pruritis 11/10/17 18:00 12/08/17 05:59 Enoxaparin Sodium (Lovenox) 40 mg DAILY SUBQ 11/14/17 09:00 12/14/17 08:59 Fat Emulsion Intravenous 192 ml/Amino Acids/ Electrolytes/ Dextrose 1,560 ml @ 65 mls/hr Q24H IV 11/12/17 20:00 12/12/17 19:59 11/12/17 21:20 Fluconazole/ Sodium Chloride 100 ml @ 100 mls/hr Q24H IV 11/11/17 06:00 11/15/17 05:59 11/13/17 05:24 Hydromorphone HCl (Dilaudid) 0.5 mg Q3H PRN IVP Pain Score 1-3 11/10/17 18:00 11/15/17 05:59 Hydromorphone HCl (Dilaudid) 1 mg Q3H PRN IVP pain score 4-6 11/10/17 18:00 11/15/17 05:59 11/13/17 13:30 Hydromorphone HCl (Dilaudid) 2 mg Q3H PRN IVP pain score 7-10 11/10/17 18:00 11/15/17 05:59 11/13/17 02:00 Insulin Aspart (NovoLOG) Q6HR SUBQ 11/10/17 18:00 12/10/17 00:00 11/12/17 12:10 Metronidazole 100 ml @ 100 mls/hr Q8HR IVPB 11/10/17 22:00 11/15/17 09:29 11/13/17 13:41 Ondansetron HCl (Zofran) 4 mg Q6H PRN IVP Nausea & Vomiting 11/10/17 18:00 12/08/17 05:59 11/13/17 13:41 Pantoprazole (Protonix) 40 mg BID IVP 11/10/17 18:00 12/08/17 18:59 11/13/17 08:54 Phytonadione (Vitamin K) 10 mg QWEEK SUBQ 11/15/17 09:00 12/15/17 08:59 Piperacillin Sod/ Tazobactam Sod 3.375 gm/Sodium Chloride 110 ml @ 27.5 mls/hr Q8H IVPB 11/10/17 18:00 11/17/17 17:59 11/13/17 09:54 Polyethylene Glycol (Miralax) 17 gm HSPRN PRN ORAL Constipation 11/10/17 18:00 12/10/17 17:59 Sodium Chloride 1,000 ml @ 60 mls/hr [id number] IV 11/13/17 08:30 12/10/17 08:29 PENNY GOMEZ Nov 13, 2017 17:33
[2017-11-13 20:17] VITALS: BP 95/70
[2017-11-13] MEDS: Dyna-Hex 2% Top Sol 2oz TOPIC SCH (21:00)
[2017-11-13] MEDS: Fat Emulsion Iv 20% 192 ML in Tpn 1,368 ML IV SCH (21:03)
[2017-11-14 00:19] VITALS: BP 92/64
[2017-11-14] MEDS: HYDROmorphone 1mg/ml Carpuject IVP PRN ×5 (01:54→23:58)
[2017-11-14] MEDS: Piperacillin/Tazobactam 3.375 GM in NS 110 ML IVPB SCH ×3 (02:26→18:23)
[2017-11-14 04:07] VITALS: BP 118/63
[2017-11-14] MEDS: NovoLOG Insulin Flexpen SUBQ SCH ×4 (06:00→23:58)
[2017-11-14 08:16] VITALS: BP 98/67
[2017-11-14] MEDS: Pantoprazole Inj IVP SCH ×2 (09:30→18:23)
[2017-11-14] MEDS: Enoxaparin 40mg Inj SUBQ SCH (09:33)
[2017-11-14 12:11] VITALS: BP 103/63
--- NOTE | 2017-11-14 16:28 | General Progress Note ---
Progress Note Progress Note Surgery: doing well. no n/v/f/c. comfortable. understanding path results. exam benign. drains with serous output start clear liquids. cont TPN and IVF cont Abx. Torrey Burton Nov 14, 2017 16:28
[2017-11-14 16:51] VITALS: BP 109/76
--- NOTE | 2017-11-14 18:14 | Pulmonology Progress Note ---
Assessment/Plan Problems: (1) Perforated gastric ulcer (2) Adnexal mass Assessment/Plan tpn symptomatic treatment cytology negative. f/u by surgery d/w oncology, needs lots of recovery time Subjective ROS Limited/Unobtainable: No Constitutional: Reports: no symptoms HEENT: Repors: no symptoms Respiratory: Reports: no symptoms Allergies: Coded Allergies: No Known Allergies (Unverified , 11/07/17) Objective Last 24 Hour Vital Signs Date Time Temp Pulse Resp B/P (MAP) Pulse Ox O2 Delivery O2 Flow Rate FiO2 11/14/17 16:51 97.9 93 20 109/76 100 Room Air 11/14/17 12:11 97.7 20 20 103/63 11/14/17 08:16 97.7 93 20 98/67 100 11/14/17 04:07 98.2 87 17 118/63 99 11/14/17 00:19 98.1 78 18 92/64 100 11/13/17 20:17 98.0 84 20 95/70 100 Intake and Output 11/13/17 11/14/17 19:00 07:00 Intake Total 780 ml 585 ml Output Total 2170 ml Balance 780 ml -1585 ml IV Total 780 ml 585 ml Output Urine Total 1800 ml Drainage Total 370 ml # Voids 7 Objective General Appearance: WN/WD HEENT: normocephalic, atraumatic Respiratory/Chest: chest wall non-tender, normal breath sounds Cardiovascular: normal peripheral pulses, normal rate Abdomen: soft, non tender, no organomegaly Genitourinary: normal external genitalia Extremities: no clubbing Skin: no rash, no lesions 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, Lymphatic: no neck adenopathy Current Medications Medications (Trade) Dose Ordered Sig/Kina Route PRN Reason Start Time Stop Time Status Last Admin Dose Admin Acetaminophen (Tylenol) 650 mg Q4H PRN RECTAL Mild Pain (Pain Scale 1-3) 11/10/17 18:30 12/08/17 02:29 Chlorhexidine Gluconate (Jenn-Hex 2%) 1 applic Q24H TOPIC 11/10/17 20:00 12/09/17 19:59 11/13/17 21:00 Dextrose 1,000 ml @ 0 mls/hr Q24H PRN IV TPN interrupted or unavailable 11/10/17 20:00 12/09/17 19:59 Dextrose (Dextrose 50%) STAT PRN IV Hypoglycemia 11/10/17 17:15 12/08/17 17:14 Diphenhydramine HCl (Benadryl) 12.5 mg Q6H PRN IVP Itching/Pruritis 11/10/17 18:00 12/08/17 05:59 Enoxaparin Sodium (Lovenox) 40 mg DAILY SUBQ 11/14/17 09:00 12/14/17 08:59 11/14/17 09:33 Fat Emulsion Intravenous 192 ml/Amino Acids/ Electrolytes/ Dextrose 1,560 ml @ 65 mls/hr Q24H IV 11/12/17 20:00 12/12/17 19:59 11/13/17 21:03 Fluconazole/ Sodium Chloride 100 ml @ 100 mls/hr Q24H IV 11/11/17 06:00 11/15/17 05:59 11/14/17 05:35 Hydromorphone HCl (Dilaudid) 0.5 mg Q3H PRN IVP Pain Score 1-3 11/10/17 18:00 11/15/17 05:59 Hydromorphone HCl (Dilaudid) 1 mg Q3H PRN IVP pain score 4-6 11/10/17 18:00 11/15/17 05:59 11/14/17 09:31 Hydromorphone HCl (Dilaudid) 2 mg Q3H PRN IVP pain score 7-10 11/10/17 18:00 11/15/17 05:59 11/14/17 15:03 Insulin Aspart (NovoLOG) Q6HR SUBQ 11/10/17 18:00 12/10/17 00:00 11/12/17 12:10 Ondansetron HCl (Zofran) 4 mg Q6H PRN IVP Nausea & Vomiting 11/10/17 18:00 12/08/17 05:59 11/13/17 13:41 Pantoprazole (Protonix) 40 mg BID IVP 11/10/17 18:00 12/08/17 18:59 11/14/17 09:30 Phytonadione (Vitamin K) 10 mg QWEEK SUBQ 11/15/17 09:00 12/15/17 08:59 Piperacillin Sod/ Tazobactam Sod 3.375 gm/Sodium Chloride 110 ml @ 27.5 mls/hr Q8H IVPB 11/10/17 18:00 11/17/17 17:59 11/14/17 09:31 Polyethylene Glycol (Miralax) 17 gm HSPRN PRN ORAL Constipation 11/10/17 18:00 12/10/17 17:59 PENNY GOMEZ Nov 14, 2017 18:14
[2017-11-14 20:00] VITALS: BP 98/61
[2017-11-14] MEDS: Dyna-Hex 2% Top Sol 2oz TOPIC SCH (20:24)
[2017-11-14] MEDS: Fat Emulsion Iv 20% 192 ML in Tpn 1,368 ML IV SCH (20:26)
[2017-11-15] VITALS: BP 89/59
--- NOTE | 2017-11-15 00:01 | Consultation ---
DATE OF CONSULTATION: 11/14/2017 NOTE: POOR AUDIO QUALITY HEMATOLOGY/ONCOLOGY CONSULTATION CONSULTING PHYSICIAN: Yehuda Quintanilla M.D. REFERRING PHYSICIAN: Torrey Burton M.D. REASON FOR CONSULTATION: Evaluation of stage IV gastric cancer. IDENTIFYING DATA: Dear Dr. Burton as well as Dr. Arellano, The patient is a pleasant 37-year-old female with no significant past medical history, at this time presents with severe abdominal pain, which is acute in onset. She states she has been taking Vitaminwater and walking back and forth generalized pain, 10/10, severe cramping in nature. Denies any radiation of the pain, this started approximately 2 to 3 months ago, has lost approximately 15 to 20 pounds, status post procedure by Dr. Burton. The patient had an exploratory laparotomy, Billroth type II type II, has been recovering well. Hematology/Oncology Service consulted for further evaluation of underlying disorder. The patient noted to have leukopenia as well as anemia, diagnosed with gastric cancer with peritoneal metastasis, perforated invasive poorly differentiated adenocarcinoma with signet ring features, proximal and distal margins positive for invasive adenocarcinoma, 10 out of 11 nodes are positive for metastatic disease, right ovary also positive for metastatic poorly differentiated adenocarcinoma. PAST MEDICAL HISTORY: As noted above. No significant medical history reported. PAST SURGICAL HISTORY: None noted. Repair of several lacerations as a child. MEDICATIONS: None known. ALLERGIES: No known drug allergies. FAMILY HISTORY: Grandmother with history of cancer, however, type is unknown, so stating that family history, otherwise, noncontributory. SOCIAL HISTORY: No alcohol, tobacco, or illicit drug use . REVIEW OF SYSTEMS: As noted in the history of present illness, otherwise, negative. PHYSICAL EXAMINATION: GENERAL: No acute distress. VITAL SIGNS: Reviewed. PULMONARY: Decreased breath sounds. CARDIOVASCULAR: Regular rate. No S3 or S4. ABDOMEN: Soft, nontender, and nondistended. Status post exploratory laparotomy, drain in place. EXTREMITIES: No cyanosis, clubbing, or edema. LABORATORY DATA: WBC 12.5, hemoglobin 9.9, hematocrit 29. INR 1.2. ASSESSMENT AND RECOMMENDATIONS: 1. 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 Prognosis is extremely poor. The patient will require at least one month to recover prior to any treatment. I have discussed the case with Dr. Burton as well as Dr. Arellano. Very unfortunate female. The patient to be seen by contracted oncologist and/or can follow up in our clinic. Continue to closely monitor. I have given the patient my address where she can come and see us. 2. Leukopenia, likely secondary to involvement of the bone marrow. 3. 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 4. Anemia due to underlying chronic disease. Continue to closely monitor. 5. Anemia due to folic acid deficiency. The patient currently on multivitamin. 6. Status post exploratory laparotomy with Billroth procedure. 7. Perforated gastric ulceration. I appreciate the consultation. Do not hesitate to contact me if any further questions, phone number [phone]. Yehuda Quintanilla M.D. DR: Brooklynn JOB#: [id number] CC:
[2017-11-15] MEDS: Piperacillin/Tazobactam 3.375 GM in NS 110 ML IVPB SCH ×3 (02:20→18:09)
[2017-11-15 04:00] VITALS: BP 98/61
[2017-11-15] MEDS: HYDROmorphone 1mg/ml Carpuject IVP PRN (04:14)
[2017-11-15] MEDS: NovoLOG Insulin Flexpen SUBQ SCH ×3 (06:21→18:00)
[2017-11-15 06:39] LABS: HEMATOCRIT 29.7 % (37.0-47.0); HEMOGLOBIN 9.9 G/DL (12.0-16.0); MEAN CORPUSCULAR VOLUME 90 FL (80-99); PLATELET COUNT 278 K/UL (150-450); RED BLOOD COUNT 3.31 M/UL (4.20-5.40); RED CELL DISTRIBUTION WIDTH 12.2 % (11.6-14.8); WHITE BLOOD COUNT 2.8 K/UL (4.8-10.8)
[2017-11-15 07:19] LABS: ALANINE AMINOTRANSFERASE 22 U/L (12-78); ALBUMIN 1.4 G/DL (3.4-5.0); ALBUMIN/GLOBULIN RATIO 0.4 (1.0-2.7); ALKALINE PHOSPHATASE 58 U/L (46-116); ANION GAP 3 mmol/L (5-15); ASPARTATE AMINO TRANSFERASE 23 U/L (15-37); BILIRUBIN,TOTAL 0.2 MG/DL (0.2-1.0); BLOOD UREA NITROGEN 6 mg/dL (7-18); CALCIUM 8.1 MG/DL (8.5-10.1); CARBON DIOXIDE 28 MMOL/L (21-32); CHLORIDE 103 MMOL/L (98-107); CREATININE 0.5 MG/DL (0.55-1.30); POTASSIUM 3.7 MMOL/L (3.5-5.1); SODIUM 134 MMOL/L (136-145)
[2017-11-15 08:00] VITALS: BP 98/63
--- NOTE | 2017-11-15 08:28 | Pulmonology Progress Note ---
Assessment/Plan Assessment/Plan ASSESSMENT Large perforated gastric ulcer Large ovarian mass Peritonitis pneumoperitoneum peritoneal carcinomatosis metastatic adenocarcinoma s/p exploratory laparotomy with antrectomy and Billroth II gastrojejunostom; right ovarian biopsy, with abdominal washout. PLAN OF CARE [facility] floor TPN abx CL as tolerated and advance as per surgeon as tolerated dc TPN rajesh tolerated diet a/emetic prn pathology report + metastatic adenocarcinoma/patient aware onco eval- Pain management Wound care monitor drain output elevated CA 125-83 IS at the bedside and encourage to use OOB as tolerated DVT GI prophylaxis encourage ID use while in the bed case discussed and evaluated by supervising physician Subjective Allergies: Coded Allergies: No Known Allergies (Unverified , 11/07/17) Subjective ambulated in the hallway with OT pain intermittently controlled tolerated CL diet, no n/v Objective Last 24 Hour Vital Signs Date Time Temp Pulse Resp B/P (MAP) Pulse Ox O2 Delivery O2 Flow Rate FiO2 11/15/17 04:00 Room Air 11/15/17 04:00 98.3 79 17 98/61 100 11/15/17 02:22 99 Nasal Cannula 2.0 28 11/15/17 02:22 Nasal Cannula 3.0 32 11/15/17 00:00 Room Air 11/15/17 00:00 98.0 73 18 89/59 100 11/14/17 20:00 98.4 82 18 98/61 98 11/14/17 20:00 Room Air 11/14/17 16:51 97.9 93 20 109/76 100 Room Air 11/14/17 12:11 97.7 20 20 103/63 Intake and Output 11/14/17 11/15/17 19:00 07:00 Intake Total 970 ml 935.0 ml Output Total 535 ml Balance 970 ml 400.0 ml Intake Oral 320 ml IV Total 650 ml 935.0 ml Drainage Total 535 ml # Voids 1 2 # Bowel Movements 3 General Appearance: no acute distress, other - awake, alert, thin AA female in NAD HEENT: normocephalic, atraumatic Respiratory/Chest: lungs clear, no respiratory distress Cardiovascular: normal rate, regular rhythm, no JVD Abdomen: normal bowel sounds - mild tenderness around surtgical incision, other - abdominal dressing C/D/I, 2 NICOLE with serous fluid L>R Extremities: no edema, pedal pulses normal 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, no motor/sensory deficits, alert, oriented x 3, responsive, normal mood/affect Laboratory Tests 11/14/17 21:40: Stool Occult Blood [Pending] 11/15/17 06:20: White Blood Count 2.8L, Red Blood Count 3.31L, Hemoglobin 9.9L, Hematocrit 29.7L , Mean Corpuscular Volume 90, Mean Corpuscular Hemoglobin 30.0, Mean Corpuscular Hemoglobin Concent 33.5, Red Cell Distribution Width 12.2, Platelet Count 278, Mean Platelet Volume 6.6, Neutrophils (%) (Auto) , Lymphocytes (%) ( Auto) , Monocytes (%) (Auto) , Eosinophils (%) (Auto) , Basophils (%) (Auto) , Differential Total Cells Counted 100, Neutrophils % (Manual) 51, Lymphocytes % ( Manual) 33, Monocytes % (Manual) 11H, Eosinophils % (Manual) 5H, Basophils % ( Manual) 0, Band Neutrophils 0, Platelet Estimate Adequate, Platelet Morphology Normal, Hypochromasia 1+, Sodium Level 134L, Potassium Level 3.7, Chloride Level 103, Carbon Dioxide Level 28, Anion Gap 3L, Blood Urea Nitrogen 6L, Creatinine 0.5L, Estimat Glomerular Filtration Rate > 60, Glucose Level 132H, Calcium Level 8.1L, Total Bilirubin 0.2, Aspartate Amino Transf (AST/SGOT) 23, Alanine Aminotransferase (ALT/SGPT) 22, Alkaline Phosphatase 58, Total Protein 5.2L, Albumin 1.4L, Globulin 3.8, Albumin/Globulin Ratio 0.4L Current Medications Medications (Trade) Dose Ordered Sig/Kina Route PRN Reason Start Time Stop Time Status Last Admin Dose Admin Acetaminophen (Tylenol) 650 mg Q4H PRN RECTAL Mild Pain (Pain Scale 1-3) 11/10/17 18:30 12/08/17 02:29 Chlorhexidine Gluconate (Jenn-Hex 2%) 1 applic Q24H TOPIC 11/10/17 20:00 12/09/17 19:59 11/14/17 20:24 Dextrose 1,000 ml @ 0 mls/hr Q24H PRN IV TPN interrupted or unavailable 11/10/17 20:00 12/09/17 19:59 Dextrose (Dextrose 50%) STAT PRN IV Hypoglycemia 2/10/18 17:15 12/08/17 17:14 Diphenhydramine HCl (Benadryl) 12.5 mg Q6H PRN IVP Itching/Pruritis 11/10/17 18:00 12/08/17 05:59 Enoxaparin Sodium (Lovenox) 40 mg DAILY SUBQ 11/14/17 09:00 12/14/17 08:59 11/14/17 09:33 Fat Emulsion Intravenous 192 ml/Amino Acids/ Electrolytes/ Dextrose 1,560 ml @ 65 mls/hr Q24H IV 11/12/17 20:00 12/12/17 19:59 11/14/17 20:26 Insulin Aspart (NovoLOG) Q6HR SUBQ 11/10/17 18:00 12/10/17 00:00 11/15/17 06:21 Ondansetron HCl (Zofran) 4 mg Q6H PRN IVP Nausea & Vomiting 11/10/17 18:00 12/08/17 05:59 11/13/17 13:41 Pantoprazole (Protonix) 40 mg BID IVP 11/10/17 18:00 12/08/17 18:59 11/14/17 18:23 Phytonadione (Vitamin K) 10 mg QWEEK SUBQ 11/15/17 09:00 12/15/17 08:59 Piperacillin Sod/ Tazobactam Sod 3.375 gm/Sodium Chloride 110 ml @ 27.5 mls/hr Q8H IVPB 11/10/17 18:00 11/17/17 17:59 11/15/17 02:20 Polyethylene Glycol (Miralax) 17 gm HSPRN PRN ORAL Constipation 11/10/17 18:00 12/10/17 17:59 Lee Hawkins)Corine NP Nov 15, 2017 08:28
[2017-11-15] MEDS: Pantoprazole Inj IVP SCH ×2 (08:41→18:09)
[2017-11-15] MEDS: Enoxaparin 40mg Inj SUBQ SCH (08:42)
[2017-11-15] MEDS ORDERED: HYDROmorphone 1mg/ml Carpuject IVP PRN ×2 (09:00→10:15)
[2017-11-15] MEDS ORDERED: Phytonadione 10 mg/mL 1ml amp SUBQ SCH ×2 (09:00)
--- NOTE | 2017-11-15 09:54 | General Progress Note ---
Progress Note Progress Note Surgery: doing better. tolerating clears. had BM. no n/v/f/c. pain improving. drains with serous output. understands path. abd soft, incision tender, incision c/d/i. -advance diet -TPN for 1 more day until tolerating regular diet -ambulate and oob -cont Torrey Romero Nov 15, 2017 09:53
[2017-11-15] MEDS ORDERED: Norco 5mg/325mg tab ORAL PRN (10:15)
[2017-11-15] MEDS: Docusate 100mg cap ORAL SCH ×2 (11:46→18:09)
[2017-11-15 12:00] VITALS: BP 97/64
[2017-11-15 16:00] VITALS: BP 93/63
[2017-11-15] MEDS ORDERED: NS 275ml ONE (16:24)
[2017-11-15] MEDS ORDERED: Tubing IV Secondary IV ONE (16:24)
[2017-11-15] MEDS ORDERED: NS 500ML ONE (16:24)
[2017-11-15 20:00] VITALS: BP 90/58
[2017-11-15] MEDS: Dyna-Hex 2% Top Sol 2oz TOPIC SCH (21:01)
[2017-11-15] MEDS: Fat Emulsion Iv 20% 192 ML in Tpn 1,368 ML IV SCH (21:02)
--- NOTE | 2017-11-15 23:41 | General Progress Note ---
Assessment/Plan Status: deteriorating Assessment/Plan 1. 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 --> Prognosis is extremely poor. The patient will require at least one month to recover prior to any treatment. --> I have discussed the case with Dr. Burton as well as Dr. Arellano. Very unfortunate female. --> The patient to be seen by contracted oncologist and/or can follow up in our clinic. --> Continue to closely monitor. I have given the patient my address where she can come and see us. 2. Leukopenia, likely secondary to involvement of the bone marrow. --> Monitor wbc count 3. 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 4. Anemia due to underlying chronic disease. --> Continue to closely monitor. --> Anemia workup reviewed. --> Iron 39, TIBC 96, Vitamin B12 697, Folate 5.6 5. Anemia due to folic acid deficiency. --> The patient currently on multivitamin. --> Folate 5.6. Monitor. 6. Status post exploratory laparotomy with Billroth procedure. 7. Perforated gastric ulceration. Subjective Date patient seen: Nov 15, 2017 Constitutional: Denies: no symptoms, chills, diaphoresis, fever, malaise, weakness, other HEENT: Denies: no symptoms, eye pain, blurred vision, tearing, double vision, ear pain, ear discharge, nose pain, nose congestion, throat pain, throat swelling, mouth pain, mouth swelling, other Cardiovascular: Denies: no symptoms, chest pain, edema, irregular heart rate, lightheadedness, palpitations, syncope, other Respiratory: Denies: no symptoms, cough, orthopnea, shortness of breath, SOB with excertion, SOB at rest, sputum, stridor, wheezing, other Gastrointestinal/Abdominal: Denies: no symptoms, abdomen distended, abdominal pain, black stools, tarry stools, blood in stool, constipated, diarrhea, difficulty swallowing, nausea, poor appetite, poor fluid intake, rectal bleeding , vomiting, other Genitourinary: Denies: no symptoms, burning, discharge, frequency, flank pain, hematuria, incontinence, pain, urgency, other Allergies: Coded Allergies: No Known Allergies (Unverified , 11/07/17) Subjective Poor prognosis. Low wbc count. No fever. Objective Last 24 Hour Vital Signs Date Time Temp Pulse Resp B/P (MAP) Pulse Ox O2 Delivery O2 Flow Rate FiO2 11/15/17 20:00 98.0 83 16 90/58 100 Room Air 11/15/17 19:47 Room Air 11/15/17 19:47 98 Room Air 11/15/17 16:00 97.0 89 17 93/63 98 11/15/17 12:00 98.0 87 18 97/64 98 11/15/17 08:00 97.5 86 17 98/63 97 11/15/17 04:00 Room Air 11/15/17 04:00 98.3 79 17 98/61 100 11/15/17 02:22 99 Nasal Cannula 2.0 28 11/15/17 02:22 Nasal Cannula 3.0 32 11/15/17 00:00 Room Air 11/15/17 00:00 98.0 73 18 89/59 100 Intake and Output 11/14/17 11/15/17 19:00 07:00 Intake Total 970 ml 935.0 ml Output Total 535 ml Balance 970 ml 400.0 ml Intake Oral 320 ml IV Total 650 ml 935.0 ml Drainage Total 535 ml # Voids 1 2 # Bowel Movements 3 Laboratory Tests 11/15/17 06:20: White Blood Count 2.8L, Red Blood Count 3.31L, Hemoglobin 9.9L, Hematocrit 29.7L , Mean Corpuscular Volume 90, Mean Corpuscular Hemoglobin 30.0, Mean Corpuscular Hemoglobin Concent 33.5, Red Cell Distribution Width 12.2, Platelet Count 278, Mean Platelet Volume 6.6, Neutrophils (%) (Auto) , Lymphocytes (%) ( Auto) , Monocytes (%) (Auto) , Eosinophils (%) (Auto) , Basophils (%) (Auto) , Differential Total Cells Counted 100, Neutrophils % (Manual) 51, Lymphocytes % ( Manual) 33, Monocytes % (Manual) 11H, Eosinophils % (Manual) 5H, Basophils % ( Manual) 0, Band Neutrophils 0, Platelet Estimate Adequate, Platelet Morphology Normal, Hypochromasia 1+, Sodium Level 134L, Potassium Level 3.7, Chloride Level 103, Carbon Dioxide Level 28, Anion Gap 3L, Blood Urea Nitrogen 6L, Creatinine 0.5L, Estimat Glomerular Filtration Rate > 60, Glucose Level 132H, Calcium Level 8.1L, Total Bilirubin 0.2, Aspartate Amino Transf (AST/SGOT) 23, Alanine Aminotransferase (ALT/SGPT) 22, Alkaline Phosphatase 58, Total Protein 5.2L, Albumin 1.4L, Globulin 3.8, Albumin/Globulin Ratio 0.4L Height (Feet): 5 Height (Inches): 5.00 Weight (Pounds): 114 Respiratory/Chest: decreased breath sounds Edema: mild edema Yehuda Quintanilla Nov 15, 2017 23:41
[2017-11-16] MEDS: NovoLOG Insulin Flexpen SUBQ SCH ×4 (00:49→18:00)
[2017-11-16] MEDS: Piperacillin/Tazobactam 3.375 GM in NS 110 ML IVPB SCH ×3 (01:06→18:16)
[2017-11-16 04:00] VITALS: BP 87/52
[2017-11-16 07:10] LABS: HEMATOCRIT 27.7 % (37.0-47.0); HEMOGLOBIN 9.4 G/DL (12.0-16.0); MEAN CORPUSCULAR VOLUME 90 FL (80-99); PLATELET COUNT 264 K/UL (150-450); RED BLOOD COUNT 3.08 M/UL (4.20-5.40); RED CELL DISTRIBUTION WIDTH 12.5 % (11.6-14.8); WHITE BLOOD COUNT 3.1 K/UL (4.8-10.8)
[2017-11-16 07:30] LABS: ANION GAP 3 mmol/L (5-15); BLOOD UREA NITROGEN 5 mg/dL (7-18); CALCIUM 7.6 MG/DL (8.5-10.1); CARBON DIOXIDE 28 MMOL/L (21-32); CHLORIDE 105 MMOL/L (98-107); CREATININE 0.5 MG/DL (0.55-1.30); POTASSIUM 3.5 MMOL/L (3.5-5.1); SODIUM 136 MMOL/L (136-145)
[2017-11-16 08:00] VITALS: BP 89/58
--- NOTE | 2017-11-16 08:12 | Pulmonology Progress Note ---
Assessment/Plan Assessment/Plan ASSESSMENT Large perforated gastric ulcer Large ovarian mass Peritonitis pneumoperitoneum peritoneal carcinomatosis metastatic adenocarcinoma s/p exploratory laparotomy with antrectomy and Billroth II gastrojejunostom; right ovarian biopsy, with abdominal washout. PLAN OF CARE [facility] floor TPN abx tolerates soft diet dc TPN rajesh tolerates diet - per surgery orders a/emetic prn pathology report + metastatic adenocarcinoma/patient aware onco eval- Pain management Wound care monitor drain output elevated CA 125-83 IS at the bedside and encourage to use OOB as tolerated DVT GI prophylaxis encourage ID use while in the bed dc plan discussed with oncologist , chemo advisable later in a month or so, to allow prior healing case discussed and evaluated by supervising physician Subjective Allergies: Coded Allergies: No Known Allergies (Unverified , 11/07/17) Subjective ambulated in the hallway with OT pain intermittently controlled tolerated soft diet, no n/v/ Objective Last 24 Hour Vital Signs Date Time Temp Pulse Resp B/P (MAP) Pulse Ox O2 Delivery O2 Flow Rate FiO2 11/16/17 04:00 97.6 80 18 87/52 100 Room Air 11/15/17 20:00 98.0 83 16 90/58 100 Room Air 11/15/17 19:47 Room Air 11/15/17 19:47 98 Room Air 11/15/17 16:00 97.0 89 17 93/63 98 11/15/17 12:00 98.0 87 18 97/64 98 Intake and Output 11/15/17 11/16/17 19:00 07:00 Intake Total 1360 ml 995.0 ml Output Total 1000 ml Balance 1360 ml -5.0 ml Intake Oral 450 ml 300 ml IV Total 910 ml 695.0 ml Output Urine Total 1000 ml # Voids 2 # Bowel Movements 1 Objective General Appearance: no acute distress, awake, alert, thin AA female in NAD HEENT: normocephalic, atraumatic Respiratory/Chest: lungs clear, no respiratory distress Cardiovascular: normal rate, regular rhythm, no JVD Abdomen: normal bowel sounds - mild tenderness around surgical incision, other - abdominal dressing C/D/I, 2 NICOLE with serous fluid L>R Extremities: no edema, pedal pulses normal Laboratory Tests 11/16/17 06:10: White Blood Count 3.1L, Red Blood Count 3.08L, Hemoglobin 9.4L, Hematocrit 27.7L , Mean Corpuscular Volume 90, Mean Corpuscular Hemoglobin 30.6, Mean Corpuscular Hemoglobin Concent 34.0, Red Cell Distribution Width 12.5, Platelet Count 264, Mean Platelet Volume 7.2, Neutrophils (%) (Auto) , Lymphocytes (%) ( Auto) , Monocytes (%) (Auto) , Eosinophils (%) (Auto) , Basophils (%) (Auto) , Neutrophils % (Manual) [Pending], Lymphocytes % (Manual) [Pending], Platelet Estimate [Pending], Platelet Morphology [Pending], Sodium Level 136, Potassium Level 3.5, Chloride Level 105, Carbon Dioxide Level 28, Anion Gap 3L, Blood Urea Nitrogen 5L, Creatinine 0.5L, Estimat Glomerular Filtration Rate > 60, Glucose Level 87, Calcium Level 7.6L Current Medications Medications (Trade) Dose Ordered Sig/Kina Route PRN Reason Start Time Stop Time Status Last Admin Dose Admin Acetaminophen (Tylenol) 650 mg Q4H PRN RECTAL Mild Pain (Pain Scale 1-3) 11/10/17 18:30 12/08/17 02:29 Acetaminophen/ Hydrocodone Bitart ([place] 5/325) 1 tab Q4H PRN ORAL Moderate Pain (Pain Scale 4-6) 11/15/17 10:15 11/22/17 10:14 Chlorhexidine Gluconate (Jenn-Hex 2%) 1 applic Q24H TOPIC 11/10/17 20:00 12/09/17 19:59 11/15/17 21:01 Dextrose 1,000 ml @ 0 mls/hr Q24H PRN IV TPN interrupted or unavailable 11/10/17 20:00 12/09/17 19:59 Dextrose (Dextrose 50%) STAT PRN IV Hypoglycemia 11/10/17 17:15 12/08/17 17:14 Diphenhydramine HCl (Benadryl) 12.5 mg Q6H PRN IVP Itching/Pruritis 11/10/17 18:00 12/08/17 05:59 Docusate Sodium (Colace) 100 mg TWICE A DAY ORAL 11/15/17 10:30 12/15/17 10:29 11/15/17 18:09 Enoxaparin Sodium (Lovenox) 40 mg DAILY SUBQ 11/14/17 09:00 12/14/17 08:59 11/15/17 08:42 Fat Emulsion Intravenous 192 ml/Amino Acids/ Electrolytes/ Dextrose 1,560 ml @ 65 mls/hr Q24H IV 11/12/17 20:00 12/12/17 19:59 11/15/17 21:02 Hydromorphone HCl (Dilaudid) 1 mg Q3H PRN IVP Moderate Pain (Pain Scale 4-6) 11/15/17 10:15 11/22/17 08:59 Hydromorphone HCl (Dilaudid) 2 mg Q3H PRN IVP Severe Pain (Pain Scale 7-10) 11/15/17 10:15 11/22/17 08:59 11/16/17 04:13 Insulin Aspart (NovoLOG) Q6HR SUBQ 11/10/17 18:00 12/10/17 00:00 11/16/17 00:49 Ondansetron HCl (Zofran) 4 mg Q6H PRN IVP Nausea & Vomiting 11/10/17 18:00 12/08/17 05:59 11/13/17 13:41 Pantoprazole (Protonix) 40 mg BID IVP 11/10/17 18:00 12/08/17 18:59 11/15/17 18:09 Phytonadione (Vitamin K) 10 mg QWEEK SUBQ 11/15/17 09:00 12/15/17 08:59 11/15/17 09:49 Piperacillin Sod/ Tazobactam Sod 3.375 gm/Sodium Chloride 110 ml @ 27.5 mls/hr Q8H IVPB 11/10/17 18:00 11/17/17 17:59 11/16/17 01:06 Polyethylene Glycol (Miralax) 17 gm HSPRN PRN ORAL Constipation 11/10/17 18:00 12/10/17 17:59 Corine Howard NP ([place]) Nov 16, 2017 08:12
[2017-11-16] MEDS: Pantoprazole Inj IVP SCH ×2 (08:30→18:16)
[2017-11-16] MEDS: Docusate 100mg cap ORAL SCH ×2 (08:30→18:19)
[2017-11-16] MEDS: Enoxaparin 40mg Inj SUBQ SCH (08:33)
[2017-11-16 12:00] VITALS: BP 91/60
[2017-11-16 16:00] VITALS: BP 112/75
--- NOTE | 2017-11-16 19:06 | General Progress Note ---
Progress Note Progress Note Surgery: looks good despite pathology. tolerating diet. having BM's. passing flatus. no n/v/f/c. ambulatory. no complaints. wounds c/d/i. right drain with less serous output. left drain with significant serous output. no changes in output since diet started. right drain removed. left drain will stay in for a while. diet as tolerated. d/c tpn and abx tomorrow. tolerating diet now and has had full course of abx without no signs of infection. Torrey Burton Nov 16, 2017 19:06
[2017-11-16] MEDS: Dyna-Hex 2% Top Sol 2oz TOPIC SCH (20:30)
[2017-11-16] MEDS: Fat Emulsion Iv 20% 192 ML in Tpn 1,368 ML IV SCH (20:33)
[2017-11-16 20:52] VITALS: BP 97/63
[2017-11-17] VITALS: BP 111/65
[2017-11-17] MEDS: NovoLOG Insulin Flexpen SUBQ SCH ×2 (00:08→06:19)
[2017-11-17] MEDS: Piperacillin/Tazobactam 3.375 GM in NS 110 ML IVPB SCH ×2 (02:25→10:00)
--- NOTE | 2017-11-17 03:23 | General Progress Note ---
Assessment/Plan Assessment/Plan 1. 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 --> Prognosis is extremely poor. The patient will require at least one month to recover prior to any treatment. --> I have discussed the case with Dr. Burton as well as Dr. Arellano. Very unfortunate female. --> The patient to be seen by contracted oncologist and/or can follow up in our clinic. --> Continue to closely monitor. I have given the patient my address where she can come and see us. 2. Leukopenia, likely secondary to involvement of the bone marrow. --> Monitor wbc count --> On abx. 3. 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 4. Anemia due to underlying chronic disease. --> Continue to closely monitor. --> Anemia workup reviewed. --> Iron 39, TIBC 96, Vitamin B12 697, Folate 5.6 --> Blood transfusion not required unless symptomatic or hgb <7 5. Anemia due to folic acid deficiency. --> The patient currently on multivitamin. --> Folate 5.6. Monitor. 6. Status post exploratory laparotomy with Billroth procedure. 7. Perforated gastric ulceration. Subjective Date patient seen: Nov 16, 2017 Constitutional: Denies: no symptoms, chills, diaphoresis, fever, malaise, weakness, other HEENT: Denies: no symptoms, eye pain, blurred vision, tearing, double vision, ear pain, ear discharge, nose pain, nose congestion, throat pain, throat swelling, mouth pain, mouth swelling, other Cardiovascular: Denies: no symptoms, chest pain, edema, irregular heart rate, lightheadedness, palpitations, syncope, other Respiratory: Denies: no symptoms, cough, orthopnea, shortness of breath, SOB with excertion, SOB at rest, sputum, stridor, wheezing, other Gastrointestinal/Abdominal: Denies: no symptoms, abdomen distended, abdominal pain, black stools, tarry stools, blood in stool, constipated, diarrhea, difficulty swallowing, nausea, poor appetite, poor fluid intake, rectal bleeding , vomiting, other Genitourinary: Denies: no symptoms, burning, discharge, frequency, flank pain, hematuria, incontinence, pain, urgency, other Allergies: Coded Allergies: No Known Allergies (Unverified , 11/07/17) Subjective On antibiotics. No new events. Wbc remains low Objective Last 24 Hour Vital Signs Date Time Temp Pulse Resp B/P (MAP) Pulse Ox O2 Delivery O2 Flow Rate FiO2 11/17/17 00:00 97.7 97 17 111/65 97 11/16/17 20:52 98.1 90 17 97/63 100 11/16/17 16:00 97.2 94 19 112/75 97 11/16/17 12:00 98.1 93 20 91/60 97 11/16/17 08:00 97.4 93 19 89/58 97 11/16/17 04:00 97.6 80 18 87/52 100 Room Air Intake and Output 11/16/17 11/17/17 19:00 07:00 Intake Total 600 ml Balance 600 ml Intake Oral 600 ml # Voids 3 # Bowel Movements 3 Laboratory Tests 11/16/17 06:10: White Blood Count 3.1L, Red Blood Count 3.08L, Hemoglobin 9.4L, Hematocrit 27.7L , Mean Corpuscular Volume 90, Mean Corpuscular Hemoglobin 30.6, Mean Corpuscular Hemoglobin Concent 34.0, Red Cell Distribution Width 12.5, Platelet Count 264, Mean Platelet Volume 7.2, Neutrophils (%) (Auto) , Lymphocytes (%) ( Auto) , Monocytes (%) (Auto) , Eosinophils (%) (Auto) , Basophils (%) (Auto) , Differential Total Cells Counted 100, Neutrophils % (Manual) 49, Lymphocytes % ( Manual) 37, Monocytes % (Manual) 13H, Eosinophils % (Manual) 1, Basophils % ( Manual) 0, Band Neutrophils 0, Platelet Estimate Adequate, Platelet Morphology Normal, Hypochromasia 1+, Sodium Level 136, Potassium Level 3.5, Chloride Level 105, Carbon Dioxide Level 28, Anion Gap 3L, Blood Urea Nitrogen 5L, Creatinine 0.5L, Estimat Glomerular Filtration Rate > 60, Glucose Level 87, Calcium Level 7.6L Height (Feet): 5 Height (Inches): 5.00 Weight (Pounds): 110 General Appearance: lethargic Cardiovascular: normal rate Respiratory/Chest: decreased breath sounds Yehuda Quintanilla Nov 17, 2017 03:23
[2017-11-17 07:34] LABS: BASOPHILS % (AUTO) 1.9 % (0.0-2.0); EOSINOPHILS % (AUTO) 1.7 % (0.0-3.0); HEMATOCRIT 28.5 % (37.0-47.0); HEMOGLOBIN 9.5 G/DL (12.0-16.0); LYMPHOCYTES % (AUTO) 32.2 % (20.0-45.0); MEAN CORPUSCULAR VOLUME 90 FL (80-99); MONOCYTES % (AUTO) 14.6 % (1.0-10.0); NEUTROPHILS % (AUTO) 49.6 % (45.0-75.0); PLATELET COUNT 290 K/UL (150-450); RED BLOOD COUNT 3.16 M/UL (4.20-5.40); RED CELL DISTRIBUTION WIDTH 12.6 % (11.6-14.8); WHITE BLOOD COUNT 3.5 K/UL (4.8-10.8)
[2017-11-17 07:44] LABS: ANION GAP 2 mmol/L (5-15); BLOOD UREA NITROGEN 5 mg/dL (7-18); CALCIUM 8.3 MG/DL (8.5-10.1); CARBON DIOXIDE 33 MMOL/L (21-32); CHLORIDE 102 MMOL/L (98-107); CREATININE 0.5 MG/DL (0.55-1.30); SODIUM 137 MMOL/L (136-145)
[2017-11-17 08:07] VITALS: BP 107/70
--- NOTE | 2017-11-17 09:36 | Pulmonology Progress Note ---
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 s/p exploratory laparotomy with antrectomy and Billroth II gastrojejunostom; right ovarian biopsy, with abdominal washout. [facility] OF CARE [facility] floor TPN abx tolerates soft diet d/c TPN and abx today as per surgery after TPN dc start D10at 20 to prevent hypoglycemia for 1 L s/p R drain removal, still has L drain with serous drainage a/emetic prn pathology report + metastatic adenocarcinoma/patient aware onco eval- appreciated , extremely poor prognosis Pain management Wound care monitor drain output elevated CA 125-83 IS at the bedside and encourage to use OOB as tolerated DVT GI prophylaxis encourage ID use while in the bed dc plan per onco needs at least a month to recover after procedure for chemo, prognosis poor, fup with contracted oncologist or with dr Quintanilla clinic case discussed and evaluated by supervising physician Subjective Allergies: Coded Allergies: No Known Allergies (Unverified , 11/07/17) Subjective ambulated in the hallway pain intermittently controlled tolerated soft diet, no n/v/ R drain removed Objective Last 24 Hour Vital Signs Date Time Temp Pulse Resp B/P (MAP) Pulse Ox O2 Delivery O2 Flow Rate FiO2 11/17/17 08:07 98.9 100 19 107/70 100 Room Air 11/17/17 00:00 97.7 97 17 111/65 97 11/16/17 20:52 98.1 90 17 97/63 100 11/16/17 16:00 97.2 94 19 112/75 97 11/16/17 12:00 98.1 93 20 91/60 97 Intake and Output 11/16/17 11/17/17 19:00 07:00 Intake Total 600 ml Output Total 320 ml Balance 600 ml -320 ml Intake Oral 600 ml Drainage Total 320 ml # Voids 3 2 # Bowel Movements 3 Objective General Appearance: no acute distress, awake, alert, thin AA female in NAD HEENT: normocephalic, atraumatic Respiratory/Chest: lungs clear, no respiratory distress Cardiovascular: normal rate, regular rhythm, no JVD Abdomen: normal bowel sounds - mild tenderness around surtgical incision, abdominal dressing C/D/I, L NICOLE with serous fluid Extremities: no edema, pedal pulses normal Laboratory Tests 11/17/17 06:30: White Blood Count 3.5L, Red Blood Count 3.16L, Hemoglobin 9.5L, Hematocrit 28.5L , Mean Corpuscular Volume 90, Mean Corpuscular Hemoglobin 30.1, Mean Corpuscular Hemoglobin Concent 33.4, Red Cell Distribution Width 12.6, Platelet Count 290, Mean Platelet Volume 7.0, Neutrophils (%) (Auto) 49.6, Lymphocytes (% ) (Auto) 32.2, Monocytes (%) (Auto) 14.6H, Eosinophils (%) (Auto) 1.7, Basophils (%) (Auto) 1.9, Sodium Level 137, Potassium Level 4.0, Chloride Level 102, Carbon Dioxide Level 33H, Anion Gap 2L, Blood Urea Nitrogen 5L, Creatinine 0.5L, Estimat Glomerular Filtration Rate > 60, Glucose Level 91, Calcium Level 8.3L Current Medications Medications (Trade) Dose Ordered Sig/Kina Route PRN Reason Start Time Stop Time Status Last Admin Dose Admin Acetaminophen (Tylenol) 650 mg Q4H PRN RECTAL Mild Pain (Pain Scale 1-3) 11/10/17 18:30 12/08/17 02:29 Acetaminophen/ Hydrocodone Bitart ([place] 5/325) 1 tab Q4H PRN ORAL Moderate Pain (Pain Scale 4-6) 11/15/17 10:15 11/22/17 10:14 Chlorhexidine Gluconate (Jenn-Hex 2%) 1 applic Q24H TOPIC 11/10/17 20:00 12/09/17 19:59 11/16/17 20:30 Dextrose (Dextrose 50%) STAT PRN IV Hypoglycemia 11/10/17 17:15 12/08/17 17:14 Diphenhydramine HCl (Benadryl) 12.5 mg Q6H PRN IVP Itching/Pruritis 11/10/17 18:00 12/08/17 05:59 Docusate Sodium (Colace) 100 mg TWICE A DAY ORAL 11/15/17 10:30 12/15/17 10:29 11/16/17 18:19 Enoxaparin Sodium (Lovenox) 40 mg DAILY SUBQ 11/14/17 09:00 12/14/17 08:59 11/16/17 08:33 Hydromorphone HCl (Dilaudid) 1 mg Q3H PRN IVP Moderate Pain (Pain Scale 4-6) 11/15/17 10:15 11/22/17 08:59 11/17/17 06:17 Hydromorphone HCl (Dilaudid) 2 mg Q3H PRN IVP Severe Pain (Pain Scale 7-10) 11/15/17 10:15 11/22/17 08:59 11/17/17 03:11 Ondansetron HCl (Zofran) 4 mg Q6H PRN IVP Nausea & Vomiting 11/10/17 18:00 12/08/17 05:59 11/13/17 13:41 Pantoprazole (Protonix) 40 mg BID IVP 11/10/17 18:00 12/08/17 18:59 11/16/17 18:16 Piperacillin Sod/ Tazobactam Sod 3.375 gm/Sodium Chloride 110 ml @ 27.5 mls/hr Q8H IVPB 11/10/17 18:00 11/17/17 17:59 11/17/17 02:25 Polyethylene Glycol (Miralax) 17 gm HSPRN PRN ORAL Constipation 11/10/17 18:00 12/10/17 17:59 Lee ([facility])Corine NP Nov 17, 2017 09:36
[2017-11-17] MEDS: Docusate 100mg cap ORAL SCH ×2 (09:57→18:25)
[2017-11-17] MEDS: Enoxaparin 40mg Inj SUBQ SCH (09:57)
[2017-11-17] MEDS: Pantoprazole Inj IVP SCH ×2 (09:57→18:25)
--- NOTE | 2017-11-17 11:12 | General Progress Note ---
Progress Note Progress Note Surgery: doing well. no issues. no n/v/f/c. comfortable. no pain. tolerating diet. had BM's yesterday. right drain removed and site healing. left with serous drainage. afebrile HD stable, labs improved. exam benign. wound c/d/i. zoie removed. d/c tpn (tolerating diet and return of bowel function) d/c abx (had full course) if does well discharge planning for sunday or sunday. will go home with drain. okay to shower activity as tolerated diet as tolerated spoke with patient about condition and pathology. she is understanding but unrealistic about goals. will continue to talk with her. Torrey Burton Nov 17, 2017 11:12
[2017-11-17 11:51] VITALS: BP 95/68
[2017-11-17] MEDS: Dextrose 10% 1,000 ML IV SCH ×2 (12:00→18:38)
[2017-11-17 16:20] VITALS: BP 96/60
[2017-11-17] MEDS: Dyna-Hex 2% Top Sol 2oz TOPIC SCH (20:00)
[2017-11-17 20:30] VITALS: BP 94/58
[2017-11-18 04:00] VITALS: BP 96/59
[2017-11-18 08:00] VITALS: BP 99/62
[2017-11-18] MEDS: Pantoprazole Inj IVP SCH (08:30)
[2017-11-18] MEDS: Docusate 100mg cap ORAL SCH ×2 (08:30→17:41)
[2017-11-18] MEDS: Enoxaparin 40mg Inj SUBQ SCH (08:31)
[2017-11-18 09:05] VITALS: BP 99/62
--- NOTE | 2017-11-18 10:15 | General Progress Note ---
Assessment/Plan Status: unchanged Assessment/Plan #. 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 --> Prognosis is extremely poor. The patient will require at least one month to recover prior to any treatment. --> I have discussed the case with Dr. Burton as well as Dr. Arellano. Very unfortunate female. --> The patient to be seen by contracted oncologist and/or can follow up in our clinic. --> Continue to closely monitor. I have given the patient my address where she can come and see us. --> Pt has been seen by pathologist, understands pathology, will continue to followup. #. Anemia due to underlying chronic disease. --> Continue to closely monitor. --> Anemia workup reviewed. --> Iron 39, TIBC 96, Vitamin B12 697, Folate 5.6 --> Blood transfusion not required unless symptomatic or hgb <7 #. Anemia due to folic acid deficiency. --> The patient currently on multivitamin. --> Folate 5.6. Monitor. #. Leukopenia, likely secondary to involvement of the bone marrow. --> Monitor wbc count --> On abx. #. 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 --> Been seen by pathology. #. Status post exploratory laparotomy with Billroth procedure. #. Perforated gastric ulceration. Subjective Date patient seen: Nov 17, 2017 Constitutional: Denies: no symptoms, chills, diaphoresis, fever, malaise, weakness, other HEENT: Denies: no symptoms, eye pain, blurred vision, tearing, double vision, ear pain, ear discharge, nose pain, nose congestion, throat pain, throat swelling, mouth pain, mouth swelling, other Cardiovascular: Denies: no symptoms, chest pain, edema, irregular heart rate, lightheadedness, palpitations, syncope, other Respiratory: Denies: no symptoms, cough, orthopnea, shortness of breath, SOB with excertion, SOB at rest, sputum, stridor, wheezing, other Gastrointestinal/Abdominal: Denies: no symptoms, abdomen distended, abdominal pain, black stools, tarry stools, blood in stool, constipated, diarrhea, difficulty swallowing, nausea, poor appetite, poor fluid intake, rectal bleeding , vomiting, other Genitourinary: Denies: no symptoms, burning, discharge, frequency, flank pain, hematuria, incontinence, pain, urgency, other Allergies: Coded Allergies: No Known Allergies (Unverified , 11/07/17) Subjective Poor prognosis. No major events. Afebrile. Objective Last 24 Hour Vital Signs Date Time Temp Pulse Resp B/P (MAP) Pulse Ox O2 Delivery O2 Flow Rate FiO2 11/18/17 09:05 97.9 85 20 99/62 100 Room Air 11/18/17 04:00 97.6 86 18 96/59 99 11/17/17 20:30 98.4 99 17 94/58 100 11/17/17 16:20 98.2 95 17 96/60 99 Room Air 11/17/17 11:51 98.2 96 18 95/68 96 Room Air Intake and Output 11/17/17 11/18/17 19:00 07:00 Intake Total 820 ml 700 ml Output Total 240 ml 260 ml Balance 580 ml 440 ml Intake Oral 800 ml 480 ml IV Total 20 ml 220 ml Drainage Total 240 ml 260 ml # Voids 3 3 # Bowel Movements 1 Height (Feet): 5 Height (Inches): 5.00 Weight (Pounds): 106 General Appearance: lethargic, confused Respiratory/Chest: decreased breath sounds Edema: trace edema Yehuda Quintanilla Nov 18, 2017 10:15
--- NOTE | 2017-11-18 11:53 | Pulmonology Progress Note ---
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 s/p exploratory laparotomy with antrectomy and Billroth II gastrojejunostom; right ovarian biopsy, with abdominal washout. PLAN OF CARE [facility] floor off TPN off abx tolerates soft diet on D10 at 20 to prevent hypoglycemia for 1 L only s/p R drain removal, still has L drain with serous drainage , will go home with drain, teach drain care and emptying - per nursing a/emetic prn pathology report + metastatic adenocarcinoma/patient aware onco eval- appreciated , extremely poor prognosis Pain management Wound care monitor drain output elevated CA 125-83 IS at the bedside and encourage to use OOB as tolerated DVT GI prophylaxis encourage ID use while in the bed dc plan Sunday or Sunday per onco needs at least a month to recover after procedure for chemo, prognosis poor, fup with contracted oncologist or with dr Quintanilla clinic case discussed and evaluated by supervising physician Subjective Allergies: Coded Allergies: No Known Allergies (Unverified , 11/07/17) Subjective ambulated pain intermittently controlled tolerated soft diet, no n/v/ R drain removed off TPN Objective Last 24 Hour Vital Signs Date Time Temp Pulse Resp B/P (MAP) Pulse Ox O2 Delivery O2 Flow Rate FiO2 11/18/17 09:05 97.9 85 20 99/62 100 Room Air 11/18/17 08:00 97.9 85 20 99/62 100 Room Air 11/18/17 04:00 97.6 86 18 96/59 99 11/17/17 20:30 98.4 99 17 94/58 100 11/17/17 16:20 98.2 95 17 96/60 99 Room Air Intake and Output 11/17/17 11/18/17 19:00 07:00 Intake Total 820 ml 700 ml Output Total 240 ml 260 ml Balance 580 ml 440 ml Intake Oral 800 ml 480 ml IV Total 20 ml 220 ml Drainage Total 240 ml 260 ml # Voids 3 3 # Bowel Movements 1 Objective General Appearance: no acute distress, awake, alert, thin AA female in NAD HEENT: normocephalic, atraumatic Respiratory/Chest: lungs clear, no respiratory distress Cardiovascular: normal rate, regular rhythm, no JVD Abdomen: normal bowel sounds - mild tenderness around surgical incision, other - abdominal dressing C/D/I, 2 NICOLE with serous fluid L>R Extremities: no edema, pedal pulses normal Current Medications Medications (Trade) Dose Ordered Sig/Kina Route PRN Reason Start Time Stop Time Status Last Admin Dose Admin Acetaminophen (Tylenol) 650 mg Q4H PRN RECTAL Mild Pain (Pain Scale 1-3) 11/10/17 18:30 12/08/17 02:29 Acetaminophen/ Hydrocodone Bitart ([place] 5/325) 1 tab Q4H PRN ORAL Moderate Pain (Pain Scale 4-6) 11/15/17 10:15 11/22/17 10:14 Chlorhexidine Gluconate (Jenn-Hex 2%) 1 applic Q24H TOPIC 11/10/17 20:00 12/09/17 19:59 11/17/17 20:00 Dextrose 1,000 ml @ 20 mls/hr Q24H IV 11/17/17 12:00 12/17/17 11:59 11/17/17 18:38 Dextrose (Dextrose 50%) STAT PRN IV Hypoglycemia 11/10/17 17:15 12/08/17 17:14 Diphenhydramine HCl (Benadryl) 12.5 mg Q6H PRN IVP Itching/Pruritis 11/10/17 18:00 12/08/17 05:59 Docusate Sodium (Colace) 100 mg TWICE A DAY ORAL 11/15/17 10:30 12/15/17 10:29 11/18/17 08:30 Enoxaparin Sodium (Lovenox) 40 mg DAILY SUBQ 11/14/17 09:00 12/14/17 08:59 11/18/17 08:31 Hydromorphone HCl (Dilaudid) 1 mg Q3H PRN IVP Moderate Pain (Pain Scale 4-6) 11/15/17 10:15 11/22/17 08:59 11/17/17 06:17 Hydromorphone HCl (Dilaudid) 2 mg Q3H PRN IVP Severe Pain (Pain Scale 7-10) 11/15/17 10:15 11/22/17 08:59 11/18/17 08:29 Ondansetron HCl (Zofran) 4 mg Q6H PRN IVP Nausea & Vomiting 11/10/17 18:00 3/10/18 05:59 11/13/17 13:41 Pantoprazole (Protonix) 40 mg BID IVP 11/10/17 18:00 12/08/17 18:59 11/18/17 08:30 Polyethylene Glycol (Miralax) 17 gm HSPRN PRN ORAL Constipation 11/10/17 18:00 12/10/17 17:59 Lee ([facility])Corine CARDIOPULMONARY TECHNOLOGIST CHIEF Nov 18, 2017 11:52
[2017-11-18 12:00] VITALS: BP 95/51
--- NOTE | 2017-11-18 13:16 | General Progress Note ---
Progress Note Progress Note Surgery: doing great. tolerating regular diet. ambulatory. pain improving. no n/v/f/ c. -d/c IV and change to oral -d/c planning for Torrey Perkins Nov 18, 2017 13:16
[2017-11-18 16:00] VITALS: BP 93/58
[2017-11-18] MEDS: HYDROcodone/Acetamin 10/325 tab ORAL PRN ×2 (17:39→21:28)
[2017-11-18 20:00] VITALS: BP 104/69
[2017-11-18] MEDS: Dyna-Hex 2% Top Sol 2oz TOPIC SCH (21:28)
--- NOTE | 2017-11-19 00:07 | General Progress Note ---
Assessment/Plan Assessment/Plan #. 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 --> Prognosis is extremely poor. The patient will require at least one month to recover prior to any treatment. --> I have discussed the case with Dr. Burton as well as Dr. Arellano. Very unfortunate female. --> The patient to be seen by contracted oncologist and/or can follow up in our clinic. --> Continue to closely monitor. I have given the patient my address where she can come and see us. --> Pt has been seen by pathologist, understands pathology, will continue to followup. #. Anemia due to underlying chronic disease. --> Continue to closely monitor. --> Anemia workup reviewed. --> Iron 39, TIBC 96, Vitamin B12 697, Folate 5.6 --> Blood transfusion not required unless symptomatic or hgb <7 --> Blood transfusion not needed today. #. Anemia due to folic acid deficiency. --> The patient currently on multivitamin. --> Folate 5.6. Monitor. #. Leukopenia, likely secondary to involvement of the bone marrow. --> Monitor wbc count --> On abx. #. 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 --> Been seen by pathology. #. Status post exploratory laparotomy with Billroth procedure. #. Perforated gastric ulceration. Subjective Date patient seen: Nov 18, 2017 Constitutional: Denies: no symptoms, chills, diaphoresis, fever, malaise, weakness, other HEENT: Denies: no symptoms, eye pain, blurred vision, tearing, double vision, ear pain, ear discharge, nose pain, nose congestion, throat pain, throat swelling, mouth pain, mouth swelling, other Cardiovascular: Denies: no symptoms, chest pain, edema, irregular heart rate, lightheadedness, palpitations, syncope, other Respiratory: Denies: no symptoms, cough, orthopnea, shortness of breath, SOB with excertion, SOB at rest, sputum, stridor, wheezing, other Gastrointestinal/Abdominal: Denies: no symptoms, abdomen distended, abdominal pain, black stools, tarry stools, blood in stool, constipated, diarrhea, difficulty swallowing, nausea, poor appetite, poor fluid intake, rectal bleeding , vomiting, other Genitourinary: Denies: no symptoms, burning, discharge, frequency, flank pain, hematuria, incontinence, pain, urgency, other Allergies: Coded Allergies: No Known Allergies (Unverified , 11/07/17) Subjective Poor prognosis. Complained of pain at surgical site. On pain management. Objective Last 24 Hour Vital Signs Date Time Temp Pulse Resp B/P (MAP) Pulse Ox O2 Delivery O2 Flow Rate FiO2 11/18/17 20:00 98.1 93 17 104/69 100 Room Air 11/18/17 17:39 97.7 11/18/17 16:00 97.7 87 18 93/58 100 Room Air 11/18/17 13:23 99 Room Air 21 11/18/17 13:23 Room Air 21 11/18/17 12:00 98.2 85 20 95/51 99 Room Air 11/18/17 09:05 97.9 85 20 99/62 100 Room Air 11/18/17 08:00 97.9 85 20 99/62 100 Room Air 11/18/17 04:00 97.6 86 18 96/59 99 Intake and Output 11/18/17 11/19/17 19:00 07:00 Intake Total 350 ml Output Total 700 ml 250 ml Balance -350 ml -250 ml Intake Oral 350 ml Output Urine Total 700 ml Drainage Total 250 ml Height (Feet): 5 Height (Inches): 5.00 Weight (Pounds): 106 General Appearance: confused, agitated Respiratory/Chest: decreased breath sounds Edema: trace edema Yehuda Quintanilla Nov 19, 2017 00:07
[2017-11-19] MEDS: HYDROcodone/Acetamin 10/325 tab ORAL PRN ×5 (02:53→23:27)
[2017-11-19 04:00] VITALS: BP 111/62
[2017-11-19 06:39] LABS: ANION GAP 2 mmol/L (5-15); BLOOD UREA NITROGEN 4 mg/dL (7-18); CALCIUM 8.6 MG/DL (8.5-10.1); CARBON DIOXIDE 31 MMOL/L (21-32); CHLORIDE 103 MMOL/L (98-107); CREATININE 0.5 MG/DL (0.55-1.30); POTASSIUM 3.5 MMOL/L (3.5-5.1); SODIUM 136 MMOL/L (136-145)
[2017-11-19 06:44] LABS: BASOPHILS % (AUTO) 1.3 % (0.0-2.0); EOSINOPHILS % (AUTO) 0.9 % (0.0-3.0); HEMATOCRIT 31.3 % (37.0-47.0); HEMOGLOBIN 10.4 G/DL (12.0-16.0); MEAN CORPUSCULAR VOLUME 89 FL (80-99); MONOCYTES % (AUTO) 8.3 % (1.0-10.0); NEUTROPHILS % (AUTO) 50.5 % (45.0-75.0); PLATELET COUNT 416 K/UL (150-450); RED CELL DISTRIBUTION WIDTH 12.8 % (11.6-14.8); WHITE BLOOD COUNT 4.2 K/UL (4.8-10.8)
[2017-11-19 08:18] VITALS: BP 96/59
[2017-11-19] MEDS: Docusate 100mg cap ORAL SCH ×2 (09:39→17:28)
[2017-11-19] MEDS: Enoxaparin 40mg Inj SUBQ SCH (09:49)
[2017-11-19] MEDS ORDERED: Lactulose 20gm/30ml UDC ORAL ONE (10:00)
--- NOTE | 2017-11-19 10:24 | Pulmonology Progress Note ---
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 s/p exploratory laparotomy with antrectomy and Billroth II gastrojejunostom; right ovarian biopsy, with abdominal washout. PLAN OF CARE [facility] floor off TPN off abx tolerates soft diet on D10 at 20 to prevent hypoglycemia for 1 L only s/p R drain removal, still has L drain with serous drainage , will go home with drain, teach drain care and emptying - per nursing a/emetic prn pathology report + metastatic adenocarcinoma/patient aware onco eval- appreciated , extremely poor prognosis Pain management Wound care monitor drain output elevated CA 125-83 IS at the bedside and encourage to use OOB as tolerated DVT GI prophylaxis encourage ID use while in the bed dc plan today if ok with surgeon per onco needs at least a month to recover after procedure for chemo, prognosis poor, fup with contracted oncologist or with dr Quintanilla clinic case discussed and evaluated by supervising physician Subjective Allergies: Coded Allergies: No Known Allergies (Unverified , 11/07/17) Subjective ambulated pain intermittently controlled tolerated soft diet, no n/v/ R drain removed off TPN Objective Last 24 Hour Vital Signs Date Time Temp Pulse Resp B/P (MAP) Pulse Ox O2 Delivery O2 Flow Rate FiO2 11/19/17 09:40 99.0 11/19/17 08:18 99.0 94 16 96/59 98 Room Air 11/19/17 04:00 98.9 89 17 111/62 97 Room Air 11/18/17 20:00 98.1 93 17 104/69 100 Room Air 11/18/17 17:39 97.7 11/18/17 16:00 97.7 87 18 93/58 100 Room Air 11/18/17 13:23 99 Room Air 21 11/18/17 13:23 Room Air 21 11/18/17 12:00 98.2 85 20 95/51 99 Room Air Intake and Output 11/18/17 11/19/17 19:00 07:00 Intake Total 350 ml 450 ml Output Total 700 ml 490 ml Balance -350 ml -40 ml Intake Oral 350 ml 450 ml Output Urine Total 700 ml Drainage Total 490 ml # Voids 2 Objective General Appearance: no acute distress, awake, alert, thin AA female in NAD HEENT: normocephalic, atraumatic Respiratory/Chest: lungs clear, no respiratory distress Cardiovascular: normal rate, regular rhythm, no JVD Abdomen: normal bowel sounds - mild tenderness around surgical incision, other - abdominal dressing C/D/I, 2 NICOLE with serous fluid L>R Extremities: no edema, pedal pulses normal Laboratory Tests 11/19/17 06:00: White Blood Count 4.2L, Red Blood Count 3.50L, Hemoglobin 10.4L, Hematocrit 31.3L, Mean Corpuscular Volume 89, Mean Corpuscular Hemoglobin 29.8, Mean Corpuscular Hemoglobin Concent 33.3, Red Cell Distribution Width 12.8, Platelet Count 416, Mean Platelet Volume 7.0, Neutrophils (%) (Auto) 50.5, Lymphocytes (% ) (Auto) 39.0, Monocytes (%) (Auto) 8.3, Eosinophils (%) (Auto) 0.9, Basophils ( %) (Auto) 1.3, Sodium Level 136, Potassium Level 3.5, Chloride Level 103, Carbon Dioxide Level 31, Anion Gap 2L, Blood Urea Nitrogen 4L, Creatinine 0.5L, Estimat Glomerular Filtration Rate > 60, Glucose Level 95, Calcium Level 8.6 Current Medications Medications (Trade) Dose Ordered Sig/Kina Route PRN Reason Start Time Stop Time Status Last Admin Dose Admin Acetaminophen (Tylenol) 650 mg Q4H PRN RECTAL Mild Pain (Pain Scale 1-3) 11/10/17 18:30 12/08/17 02:29 Acetaminophen/ Hydrocodone Bitart ([place] 10/325) 1 tab Q4H PRN ORAL Severe Pain (Pain Scale 7-10) 11/18/17 13:15 11/25/17 13:14 11/19/17 09:40 Acetaminophen/ Hydrocodone Bitart ([place] 5/325) 1 tab Q4H PRN ORAL Moderate Pain (Pain Scale 4-6) 11/15/17 10:15 11/22/17 10:14 Chlorhexidine Gluconate ([place]enn-Hex 2%) 1 applic DAILY@1999 TOPIC 11/18/17 20:00 12/18/17 19:59 11/18/17 21:28 Diphenhydramine HCl (Benadryl) 12.5 mg Q6H PRN IVP Itching/Pruritis 11/10/17 18:00 12/08/17 05:59 Docusate Sodium (Colace) 100 mg TWICE A DAY ORAL 11/15/17 10:30 12/15/17 10:29 11/19/17 09:39 Enoxaparin Sodium (Lovenox) 40 mg DAILY SUBQ 11/14/17 09:00 12/14/17 08:59 11/19/17 09:49 Ondansetron HCl (Zofran) 4 mg Q6H PRN IVP Nausea & Vomiting 11/10/17 18:00 12/08/17 05:59 11/13/17 13:41 Pantoprazole (Protonix) 40 mg DAILY ORAL 11/19/17 09:00 12/19/17 08:59 11/19/17 09:39 Polyethylene Glycol (Miralax) 17 gm HSPRN PRN ORAL Constipation 11/10/17 18:00 12/10/17 17:59 [facility]Corine NP Nov 19, 2017 10:24
[2017-11-19 12:11] VITALS: BP 105/70
--- NOTE | 2017-11-19 15:24 | General Progress Note ---
Progress Note Progress Note Surgery: doing okay. had emesis this morning after breakfast. feels constipated. otherwise okay. pain improving. drain still with serous output. doing well since zoie removed yesterday. -will change to post gastrectomy diet. many small meals instead -bowel regimen -d/c planning. Torrey Burton Nov 19, 2017 15:24
[2017-11-19 16:10] VITALS: BP 97/68
[2017-11-19 20:00] VITALS: BP 86/64
[2017-11-19] MEDS: Dyna-Hex 2% Top Sol 2oz TOPIC SCH (21:37)
[2017-11-20] VITALS (7 sets, daily range): BP systolic 94–100; BP diastolic 56–67
[2017-11-20] MEDS: HYDROcodone/Acetamin 10/325 tab ORAL PRN ×4 (05:21→23:00)
[2017-11-20] MEDS: Docusate 100mg cap ORAL SCH ×2 (09:03→17:23)
[2017-11-20] MEDS: Enoxaparin 40mg Inj SUBQ SCH (09:19)
--- NOTE | 2017-11-20 09:25 | General Progress Note ---
Assessment/Plan Status: unchanged Assessment/Plan #. 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 --> Prognosis is extremely poor. The patient will require at least one month to recover prior to any treatment. --> I have discussed the case with Dr. Burton as well as Dr. Arellano. Very unfortunate female. --> The patient to be seen by contracted oncologist and/or can follow up in our clinic. --> Continue to closely monitor. I have given the patient my address where she can come and see us. --> Pt has been seen by pathologist, understands pathology, will continue to followup. #. Anemia due to underlying chronic disease. --> Continue to closely monitor. --> Anemia workup reviewed. --> Iron 39, TIBC 96, Vitamin B12 697, Folate 5.6 --> Blood transfusion not required unless symptomatic or hgb <7 --> Blood transfusion not needed today. #. Anemia due to folic acid deficiency. --> The patient currently on multivitamin. --> Folate 5.6. Monitor. #. Leukopenia, likely secondary to involvement of the bone marrow. --> Monitor wbc count --> On abx. #. 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 --> Been seen by pathology and surgery. --> S/P zoie removal. --> On Gastrectomy diet. #. Status post exploratory laparotomy with Billroth procedure. #. Perforated gastric ulceration. Subjective Date patient seen: Nov 19, 2017 Constitutional: Denies: no symptoms, chills, diaphoresis, fever, malaise, weakness, other HEENT: Denies: no symptoms, eye pain, blurred vision, tearing, double vision, ear pain, ear discharge, nose pain, nose congestion, throat pain, throat swelling, mouth pain, mouth swelling, other Cardiovascular: Denies: no symptoms, chest pain, edema, irregular heart rate, lightheadedness, palpitations, syncope, other Respiratory: Denies: no symptoms, cough, orthopnea, shortness of breath, SOB with excertion, SOB at rest, sputum, stridor, wheezing, other Gastrointestinal/Abdominal: Denies: no symptoms, abdomen distended, abdominal pain, black stools, tarry stools, blood in stool, constipated, diarrhea, difficulty swallowing, nausea, poor appetite, poor fluid intake, rectal bleeding , vomiting, other Genitourinary: Denies: no symptoms, burning, discharge, frequency, flank pain, hematuria, incontinence, pain, urgency, other Allergies: Coded Allergies: No Known Allergies (Unverified , 11/07/17) Subjective S/P zoie removal. Pain improved. Objective Last 24 Hour Vital Signs Date Time Temp Pulse Resp B/P (MAP) Pulse Ox O2 Delivery O2 Flow Rate FiO2 11/20/17 04:00 98.7 88 17 96/58 97 Room Air 11/20/17 00:00 98.4 88 18 94/60 97 Room Air 11/19/17 20:00 98.3 82 18 86/64 97 Room Air 11/19/17 19:14 98.0 11/19/17 19:00 Room Air 21 11/19/17 19:00 99 Room Air 21 11/19/17 18:03 98.0 11/19/17 16:10 98.8 96 16 97/68 98 Room Air 11/19/17 13:59 98.0 11/19/17 12:11 98.0 94 20 105/70 99 Room Air 11/19/17 09:58 Room Air 11/19/17 09:56 98 Room Air 11/19/17 09:40 99.0 Intake and Output 11/19/17 11/20/17 19:00 07:00 Intake Total 1050 ml 420 ml Output Total 730 ml 250 ml Balance 320 ml 170 ml Intake Oral 1050 ml 420 ml Emesis 450 ml Drainage Total 280 ml 250 ml # Voids 3 # Bowel Movements 2 Height (Feet): 5 Height (Inches): 5.00 Weight (Pounds): 101 General Appearance: confused Neck: normal alignment Cardiovascular: normal rate Respiratory/Chest: decreased breath sounds Edema: trace edema Skin: warm/dry Yehuda Quintanilla Nov 20, 2017 09:25
--- NOTE | 2017-11-20 12:12 | Pulmonology Progress Note ---
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 s/p exploratory laparotomy with antrectomy and Billroth II gastrojejunostom; right ovarian biopsy, with abdominal washout. PLAN OF CARE [facility] floor off TPN off abx tolerates soft diet on D10 at 20 to prevent hypoglycemia for 1 L only s/p R drain removal, still has L drain with serous drainage , will go home with drain, teach drain care and emptying - per nursing a/emetic prn pathology report + metastatic adenocarcinoma/patient aware onco eval- appreciated , extremely poor prognosis Pain management Wound care monitor drain output elevated CA 125-83 IS at the bedside and encourage to use OOB as tolerated DVT GI prophylaxis encourage ID use while in the bed dc plan for today if ok with surgeon per onco needs at least a month to recover after procedure for chemo, prognosis poor, fup with contracted oncologist or with dr Quintanilla clinic case discussed and evaluated by supervising physician Subjective Allergies: Coded Allergies: No Known Allergies (Unverified , 11/07/17) Subjective ambulated pain intermittently controlled tolerated soft diet, no n/v/ R drain removed off TPN Objective Last 24 Hour Vital Signs Date Time Temp Pulse Resp B/P (MAP) Pulse Ox O2 Delivery O2 Flow Rate FiO2 11/20/17 04:00 98.7 88 17 96/58 97 Room Air 11/20/17 00:00 98.4 88 18 94/60 97 Room Air 11/19/17 20:00 98.3 82 18 86/64 97 Room Air 11/19/17 19:14 98.0 11/19/17 19:00 Room Air 21 11/19/17 19:00 99 Room Air 21 11/19/17 18:03 98.0 11/19/17 16:10 98.8 96 16 97/68 98 Room Air 11/19/17 13:59 98.0 Intake and Output 11/19/17 11/20/17 19:00 07:00 Intake Total 1050 ml 420 ml Output Total 730 ml 250 ml Balance 320 ml 170 ml Intake Oral 1050 ml 420 ml Emesis 450 ml Drainage Total 280 ml 250 ml # Voids 3 # Bowel Movements 2 Objective General Appearance: no acute distress, awake, alert, thin AA female in NAD HEENT: normocephalic, atraumatic Respiratory/Chest: lungs clear, no respiratory distress Cardiovascular: normal rate, regular rhythm, no JVD Abdomen: normal bowel sounds - mild tenderness around surgical incision, other - abdominal dressing C/D/I, 2 NICOLE with serous fluid L>R Extremities: no edema, pedal pulses normal Current Medications Medications (Trade) Dose Ordered Sig/Kina Route PRN Reason Start Time Stop Time Status Last Admin Dose Admin Acetaminophen (Tylenol) 650 mg Q4H PRN RECTAL Mild Pain (Pain Scale 1-3) 11/10/17 18:30 12/08/17 02:29 Acetaminophen/ Hydrocodone Bitart ([place] 10/325) 1 tab Q4H PRN ORAL Severe Pain (Pain Scale 7-10) 11/18/17 13:15 11/25/17 13:14 11/20/17 10:42 Acetaminophen/ Hydrocodone Bitart ([place] 5/325) 1 tab Q4H PRN ORAL Moderate Pain (Pain Scale 4-6) 11/15/17 10:15 11/22/17 10:14 Chlorhexidine Gluconate (Jenn-Hex 2%) 1 applic DAILY@2000 TOPIC 11/18/17 20:00 12/18/17 19:59 11/19/17 21:37 Diphenhydramine HCl (Benadryl) 12.5 mg Q6H PRN IVP Itching/Pruritis 11/10/17 18:00 12/08/17 05:59 Docusate Sodium (Colace) 100 mg TWICE A DAY ORAL 11/15/17 10:30 12/15/17 10:29 11/20/17 09:03 Enoxaparin Sodium (Lovenox) 40 mg DAILY SUBQ 11/14/17 09:00 12/14/17 08:59 11/20/17 09:19 Ondansetron HCl (Zofran) 4 mg Q6H PRN IVP Nausea & Vomiting 11/10/17 18:00 12/08/17 05:59 11/19/17 13:59 Pantoprazole (Protonix) 40 mg DAILY ORAL 11/19/17 09:00 12/19/17 08:59 11/20/17 09:03 Polyethylene Glycol (Miralax) 17 gm HSPRN PRN ORAL Constipation 11/10/17 18:00 12/10/17 17:59 Prochlorperazine (Compazine) 10 mg Q6H PRN IVP Nausea & Vomiting 11/19/17 17:15 12/19/17 17:14 11/20/17 09:03 Sodium Chloride 1,000 ml @ 75 mls/hr [id number] IV 11/19/17 17:15 12/19/17 17:14 11/20/17 06:56 Lee CaldwellCorine stern NP Nov 20, 2017 12:12
--- NOTE | 2017-11-20 12:44 | General Progress Note ---
Progress Note Progress Note Surgery: no more nausea or emesis. tolerating diet again. taking small frequent oral intake. good uop. good liquid intake. ambulatory. afebrile, HD stable, exam benign. wounds well healed. drain with serous output still surgically she is improving and recovering from surgery but I fear that the underlying condition is going to take over. she has good intake and she is staying hydrated with good renal function and urine but still looks cachectic. remains in a catabolic state. i fear the cancer is very aggressive as noted during surgery. -diet as tolerated; multiple small meals -encourage ambulate and oob -hopefully can get home soon if stable as she may not have much time left. Torrey Burton Nov 20, 2017 12:44
[2017-11-20] MEDS ORDERED: Milk of Magnesia 30ml Ud ORAL ONE (13:00)
[2017-11-20] MEDS ORDERED: Sorbitol Solution UD 30ml ORAL ONE (15:00)
[2017-11-20] MEDS: Dyna-Hex 2% Top Sol 2oz TOPIC SCH (20:54)
[2017-11-21 00:32] VITALS: BP 98/59
[2017-11-21 04:43] VITALS: BP 90/60
[2017-11-21 05:46] LABS: BASOPHILS % (AUTO) 1.6 % (0.0-2.0); EOSINOPHILS % (AUTO) 1.4 % (0.0-3.0); HEMATOCRIT 28.9 % (37.0-47.0); HEMOGLOBIN 9.8 G/DL (12.0-16.0); LYMPHOCYTES % (AUTO) 25.5 % (20.0-45.0); MEAN CORPUSCULAR VOLUME 90 FL (80-99); MONOCYTES % (AUTO) 11.8 % (1.0-10.0); NEUTROPHILS % (AUTO) 59.7 % (45.0-75.0); PLATELET COUNT 369 K/UL (150-450); RED BLOOD COUNT 3.22 M/UL (4.20-5.40); RED CELL DISTRIBUTION WIDTH 12.4 % (11.6-14.8); WHITE BLOOD COUNT 4.5 K/UL (4.8-10.8)
[2017-11-21 06:22] LABS: ALANINE AMINOTRANSFERASE 60 U/L (12-78); ALBUMIN 1.6 G/DL (3.4-5.0); ALBUMIN/GLOBULIN RATIO 0.4 (1.0-2.7); ALKALINE PHOSPHATASE 79 U/L (46-116); ANION GAP 4 mmol/L (5-15); ASPARTATE AMINO TRANSFERASE 53 U/L (15-37); BILIRUBIN,TOTAL 0.2 MG/DL (0.2-1.0); BLOOD UREA NITROGEN 7 mg/dL (7-18); CALCIUM 8.3 MG/DL (8.5-10.1); CARBON DIOXIDE 29 MMOL/L (21-32); CHLORIDE 103 MMOL/L (98-107); CREATININE 0.5 MG/DL (0.55-1.30); POTASSIUM 3.7 MMOL/L (3.5-5.1); SODIUM 136 MMOL/L (136-145)
[2017-11-21 08:00] VITALS: BP 95/58
[2017-11-21] MEDS: Docusate 100mg cap ORAL SCH (08:43)
[2017-11-21] MEDS: Enoxaparin 40mg Inj SUBQ SCH (08:48)
--- NOTE | 2017-11-21 09:01 | General Progress Note ---
Assessment/Plan Status: unchanged Assessment/Plan #. 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 --> Prognosis is extremely poor. The patient will require at least one month to recover prior to any treatment. --> I have discussed the case with Dr. Burton as well as Dr. Arellano. Very unfortunate female. --> The patient to be seen by contracted oncologist and/or can follow up in our clinic. --> Continue to closely monitor. I have given the patient my address where she can come and see us. --> Pt has been seen by pathologist, understands pathology, will continue to followup. --> S/P surgery. Condition not improving much. #. Anemia due to underlying chronic disease. --> Continue to closely monitor. --> Anemia workup reviewed. --> Iron 39, TIBC 96, Vitamin B12 697, Folate 5.6 --> Blood transfusion not required unless symptomatic or hgb <7 --> Blood transfusion not needed today. #. Anemia due to folic acid deficiency. --> The patient currently on multivitamin. --> Folate 5.6. Monitor. #. Leukopenia, likely secondary to involvement of the bone marrow. --> Monitor wbc count --> On abx. #. 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 --> Been seen by pathology and surgery. --> S/P zoie removal. --> On Gastrectomy diet. #. Status post exploratory laparotomy with Billroth procedure. #. Perforated gastric ulceration. Subjective Date patient seen: Nov 20, 2017 Constitutional: Denies: no symptoms, chills, diaphoresis, fever, malaise, weakness, other HEENT: Denies: no symptoms, eye pain, blurred vision, tearing, double vision, ear pain, ear discharge, nose pain, nose congestion, throat pain, throat swelling, mouth pain, mouth swelling, other Cardiovascular: Denies: no symptoms, chest pain, edema, irregular heart rate, lightheadedness, palpitations, syncope, other Respiratory: Denies: no symptoms, cough, orthopnea, shortness of breath, SOB with excertion, SOB at rest, sputum, stridor, wheezing, other Gastrointestinal/Abdominal: Denies: no symptoms, abdomen distended, abdominal pain, black stools, tarry stools, blood in stool, constipated, diarrhea, difficulty swallowing, nausea, poor appetite, poor fluid intake, rectal bleeding , vomiting, other Genitourinary: Denies: no symptoms, burning, discharge, frequency, flank pain, hematuria, incontinence, pain, urgency, other Hematologic/Lymphatic: Reports: anemia Allergies: Coded Allergies: No Known Allergies (Unverified , 11/07/17) Subjective No new events. H/H stable. Hematochezia detected. Objective Last 24 Hour Vital Signs Date Time Temp Pulse Resp B/P (MAP) Pulse Ox O2 Delivery O2 Flow Rate FiO2 11/21/17 04:43 98.0 89 17 90/60 98 98.0 11/21/17 00:32 97.7 90 17 98/59 100 97.7 11/20/17 20:58 97.9 87 17 95/62 99 97.9 11/20/17 16:15 98.0 78 18 100/67 Room Air 98.0 11/20/17 16:00 98.0 78 18 100/67 99 Room Air 98.0 11/20/17 12:00 98.2 92 18 98/58 97 Room Air Intake and Output 11/20/17 11/21/17 19:00 07:00 Intake Total 417 ml 240 ml Output Total 480 ml 350 ml Balance -63 ml -110 ml Intake Oral 240 ml IV Total 417 ml Drainage Total 480 ml 350 ml # Voids 3 Laboratory Tests 11/21/17 04:40: White Blood Count 4.5L, Red Blood Count 3.22L, Hemoglobin 9.8L, Hematocrit 28.9L , Mean Corpuscular Volume 90, Mean Corpuscular Hemoglobin 30.6, Mean Corpuscular Hemoglobin Concent 34.0, Red Cell Distribution Width 12.4, Platelet Count 369, Mean Platelet Volume 6.7, Neutrophils (%) (Auto) 59.7, Lymphocytes (% ) (Auto) 25.5, Monocytes (%) (Auto) 11.8H, Eosinophils (%) (Auto) 1.4, Basophils (%) (Auto) 1.6, Sodium Level 136, Potassium Level 3.7, Chloride Level 103, Carbon Dioxide Level 29, Anion Gap 4L, Blood Urea Nitrogen 7, Creatinine 0.5L, Estimat Glomerular Filtration Rate > 60, Glucose Level 93, Calcium Level 8.3L, Total Bilirubin 0.2, Aspartate Amino Transf (AST/SGOT) 53H, Alanine Aminotransferase (ALT/SGPT) 60, Alkaline Phosphatase 79, Total Protein 5.3L, Albumin 1.6L, Globulin 3.7, Albumin/Globulin Ratio 0.4L Height (Feet): 5 Height (Inches): 5.00 Weight (Pounds): 106 General Appearance: lethargic, confused Cardiovascular: normal rate Respiratory/Chest: decreased breath sounds Edema: trace edema Yehuda Quintanilla Nov 21, 2017 09:01
[2017-11-21 09:44] VITALS: BP 95/58
[2017-11-21 12:00] VITALS: BP 87/62
[2017-11-21 13:07] VITALS: BP 87/62
--- NOTE | 2017-11-21 14:51 | General Progress Note ---
Progress Note Progress Note Surgery: no acute events. tolerating small meals. ambulatory. gaining strength. having bm's and flatus. no n/v/f/c. labs have been okay. drain with serous output still. exam benign. -okay to d/c from surgical standpoint -unfortunately prognosis poor -have had multiple conversations with patient and family about prognosis, care plan, treatment plan. they express understanding. will go home in stable condition. high risk for complications or issues given diagnosis. will return if any issues. will see me in office weekly until drain can be removed. -will follow up with oncology. -Rx written Torrey Burton Nov 21, 2017 14:51
[2017-11-21] MEDS ORDERED: NORCO 5-325 TA1 EAC1 ORAL (15:12)
[2017-11-21] MEDS ORDERED: COLACE100 MG ORAL (15:13)
[2017-11-21] MEDS ORDERED: OMEPRAZOLE20 M2 ORAL (15:13)
--- NOTE | 2017-11-22 09:17 | General Progress Note ---
Assessment/Plan Status: unchanged Assessment/Plan #. 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 --> Prognosis is extremely poor. The patient will require at least one month to recover prior to any treatment. --> I have discussed the case with Dr. Burton as well as Dr. Arellano. Very unfortunate female. --> The patient to be seen by contracted oncologist and/or can follow up in our clinic. --> Continue to closely monitor. I have given the patient my address where she can come and see us. --> Pt has been seen by pathologist, understands pathology, will continue to followup. --> Seen by surgeon. Has improved slightly. #. Anemia due to underlying chronic disease. --> Continue to closely monitor. --> Anemia workup reviewed. --> Iron 39, TIBC 96, Vitamin B12 697, Folate 5.6 --> Blood transfusion not required unless symptomatic or hgb <7 --> Blood transfusion not needed today. #. Anemia due to folic acid deficiency. --> The patient currently on multivitamin. --> Folate 5.6. Monitor. #. Leukopenia, likely secondary to involvement of the bone marrow. --> Monitor wbc count --> On abx. #. 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 --> Been seen by pathology and surgery. --> S/P zoie removal. --> On Gastrectomy diet. #. Status post exploratory laparotomy with Billroth procedure. #. Perforated gastric ulceration. Subjective Date patient seen: Nov 21, 2017 Constitutional: Denies: no symptoms, chills, diaphoresis, fever, malaise, weakness, other HEENT: Denies: no symptoms, eye pain, blurred vision, tearing, double vision, ear pain, ear discharge, nose pain, nose congestion, throat pain, throat swelling, mouth pain, mouth swelling, other Cardiovascular: Denies: no symptoms, chest pain, edema, irregular heart rate, lightheadedness, palpitations, syncope, other Respiratory: Denies: no symptoms, cough, orthopnea, shortness of breath, SOB with excertion, SOB at rest, sputum, stridor, wheezing, other Gastrointestinal/Abdominal: Denies: no symptoms, abdomen distended, abdominal pain, black stools, tarry stools, blood in stool, constipated, diarrhea, difficulty swallowing, nausea, poor appetite, poor fluid intake, rectal bleeding , vomiting, other Genitourinary: Denies: no symptoms, burning, discharge, frequency, flank pain, hematuria, incontinence, pain, urgency, other Allergies: Coded Allergies: No Known Allergies (Unverified , 11/07/17) Subjective NAD. No fever or chills. Pending DC. Objective Last 24 Hour Vital Signs Date Time Temp Pulse Resp B/P (MAP) Pulse Ox O2 Delivery O2 Flow Rate FiO2 11/21/17 13:07 97.9 95 19 87/62 100 Room Air 97.9 11/21/17 12:00 97.9 95 20 87/62 100 Room Air 97.9 Height (Feet): 5 Height (Inches): 5.00 Weight (Pounds): 106 Yehuda Quintanilla Nov 22, 2017 09:17
--- NOTE | 2017-11-24 18:19 | Discharge Summary ---
Discharge Summary Hospital Course Date of Admission Nov 08, 2017 at 05:26 Date of Discharge Nov 21, 2017 at 17:18 Admitting Diagnosis Perforated ulcer HPI Susan Tiwari is a 37 year old female who was admitted on Nov 08, 2017 at 05:26 for Perforated Gastric Ulcer Hospital Course [id number] Discharge Discharge Disposition Patient was discharged to Home (01) Discharge Diagnoses: Mari Odonnell NP Nov 24, 2017 18:18
--- NOTE | 2017-11-25 02:45 | Discharge Summary 2 SIG ---
DATE OF ADMISSION: 11/08/2017 DATE OF DISCHARGE: 11/21/2017 CONSULTANTS: 1. Torrey Burton M.D. 2. Jolene Arellano M.D. 3. Yehuda Quintanilla M.D. History of illness: The patient is an unfortunate 37-year-old female, who presented to ED for complaints of acute onset of severe abdominal pain. The pain was generalized, 10/10, sharp, and cramping in nature. She was diagnosed with gastric ulcer and around August 2017, started having intermittent abdominal pain with nausea and vomiting as well as reflux. She did not see a doctor but started holistic therapy with diet change and vitamins. She had poor p.o. intake secondary to nausea and vomiting and had lost 15-20 pounds in the last month. BRIEF HOSPITAL COURSE: On evaluation at ED, CT of the abdomen and pelvis demonstrated ascites with pneumoperitoneum, possible gastric perforation, possible carcinomatosis. Dr. Burton was consulted. The patient underwent diagnostic laparoscopy that converted to exploratory laparotomy with antrectomy and Billroth II gastrojejunostomy. There was noted enlarged right ovary, status post biopsy. Postoperatively, she had an NG tube. She was kept on n.p.o. NICOLE drainage was with serosanguineous output. Abdomen was soft, not distended with minimal tenderness. Incision was clean, dry, and intact. She was kept in ICU. She had a PICC line inserted and was started on TPN. She was encouraged use of incentive spirometry. She was placed on SCDs for DVT prophylaxis. She was encouraged to ambulate and move out of bed. On November 10, NG-tube was noted to be dislodged, did not recommend reinsertion by surgery given recent surgical findings and care. She was continued on n.p.o. She was transferred out of ICU to continue TPN. She underwent upper GI swallow study that showed no leak, anastomosis patent. Pathology findings were discussed with the patient. Gastric biopsy showed adenocarcinoma. Dr. Quintanilla was then consulted. The patient had ovarian metastasis, poorly differentiated adenocarcinoma, prognosis is extremely poor, and would require at least one month to recover prior to any treatment. Ovarian metastasis from gastric tumor was consistent with Krukenberg tumor. She was observed on medical floor, the right NICOLE drain was eventually removed, left drain was retained. Diet was slowly advanced. She was tolerating diet. She had an episode of emesis and was given small meals. She was passing flatus and BM. NICOLE drain was still with serous output. Multiple conversations were done with the patient and family about prognosis and treatment plan. The patient was discharged home in stable condition, high risk for complications or issues given diagnosis. Advised to follow up with PMD, oncology and Dr. Burton until drain could be removed. FINAL DIAGNOSES: 1. Krukenberg tumor, stage IV gastric cancer in this setting of ovarian metastasis with poorly-differentiated adenocarcinoma. 2. Anemia due to underlying chronic disease. 3. Anemia due to folic acid deficiency. 4. Leukopenia. 5. Ovarian metastasis from gastric tumor. 6. Perforated gastric ulceration, status post exploratory laparotomy with Billroth II procedure. 7. Peritonitis. DISPOSITION: The patient was discharged home. DISCHARGE MEDICATIONS: Refer to medication list. DISCHARGE INSTRUCTIONS: Follow up with PMD. May follow up with Dr. Burton weekly until removal of NICOLE drain. Roxanne Dubon M.D. I have been assigned to dictate discharge summary on this account and I was not involved in the patient's management. Mari Odonnell N.P. DR: Candida JOB#: [id number] CC: MUNA
== END 2017-11-21 17:18 | disposition home or self-care (01) | DRG 220 ==
LOC: EDBD 21:04 → EMR 21:18 → SUR 23:51 → ICU 11-08 05:26 → 3E 11-10 15:00
PROC: 0DB60ZZ Excision of Stomach, Open Approach (ICD-10-PCS; principal; 2017-11-08 02:30)
PROC: 0UB00ZX Excision of Right Ovary, Open Approach, Diagnostic (ICD-10-PCS; principal; 2017-11-08 02:30)
PROC: 0D160ZA Bypass Stomach to Jejunum, Open Approach (ICD-10-PCS; principal; 2017-11-08 02:30)
PROC: 02HV33Z Insertion of Infusion Device into Superior Vena Cava, Percutaneous Approach (ICD-10-PCS; 2017-11-09)
PROC: B548ZZA Ultrasonography of Superior Vena Cava, Guidance (ICD-10-PCS; 2017-11-09)
DX: C16.3 Malignant neoplasm of pyloric antrum (principal); R57.9 Shock, unspecified; K65.1 Peritoneal abscess; K65.8 Other peritonitis; K25.1 Acute gastric ulcer with perforation; C78.6 Secondary malignant neoplasm of retroperitoneum and peritoneum; C77.2 Secondary and unspecified malignant neoplasm of intra-abdominal lymph nodes; C79.61 Secondary malignant neoplasm of right ovary; D52.9 Folate deficiency anemia, unspecified; D72.819 Decreased white blood cell count, unspecified; R18.8 Other ascites; Z53.31 Laparoscopic surgical procedure converted to open procedure
CPT/HCPCS: 36415; 36569; 71045; 74177; 74247; 76937; 80048; 80053; 80061; 80307; 81003; 81025; 82270; 82378; 82607; 82746; 82962; 83540; 83550; 83615; 83690; 83735; 84100; 84478; 85007; 85025; 85044; 85060; 85610; 85651; 85730; 86140; 86304; 86850; 86900; 86901; 93005; 94003; 94150; 94760; J1815; J2250; J2405; J2765

== ENCOUNTER 2017-12-07 16:56 | Inpatient (IN) | payer MEDICAID ==
[~2017-12-07] VITALS: Ht 167.6 cm; Wt 40.8 kg
[~2017-12-07 16:56] MED LIST: COLACE100 MG ORAL; NORCO 5-325 TA1 EAC1 ORAL; OMEPRAZOLE20 M2 ORAL
[2017-12-07 18:59] LABS: HEMATOCRIT 38.4 % (37.0-47.0); HEMOGLOBIN 13.3 G/DL (12.0-16.0); MEAN CORPUSCULAR VOLUME 88 FL (80-99); MONOCYTES % (AUTO) 12.6 % (1.0-10.0); NEUTROPHILS % (AUTO) 66.4 % (45.0-75.0); PLATELET COUNT 326 K/UL (150-450); RED BLOOD COUNT 4.35 M/UL (4.20-5.40); RED CELL DISTRIBUTION WIDTH 12.3 % (11.6-14.8); WHITE BLOOD COUNT 5.8 K/UL (4.8-10.8)
[2017-12-07 19:14] LABS: INR 0.9 (0.9-1.1)
[2017-12-07 19:15] VITALS: BP 103/68
[2017-12-07 19:16] LABS: ALANINE AMINOTRANSFERASE 24 U/L (12-78); ALBUMIN 1.7 G/DL (3.4-5.0); ALBUMIN/GLOBULIN RATIO 0.4 (1.0-2.7); ALKALINE PHOSPHATASE 82 U/L (46-116); ANION GAP 6 mmol/L (5-15); ASPARTATE AMINO TRANSFERASE 23 U/L (15-37); BILIRUBIN,TOTAL 0.4 MG/DL (0.2-1.0); BLOOD UREA NITROGEN 33 mg/dL (7-18); CALCIUM 8.9 MG/DL (8.5-10.1); CARBON DIOXIDE 26 MMOL/L (21-32); CHLORIDE 85 MMOL/L (98-107); CREATININE 1.2 MG/DL (0.55-1.30); POTASSIUM 5.7 MMOL/L (3.5-5.1)
[2017-12-07 19:18] LABS: SODIUM 117 MMOL/L (136-145)
--- NOTE | 2017-12-07 19:28 | Emergency Room Report ---
History of Present Illness General Chief Complaint: Generalized Weakness Source: Patient, Medical Record Present Illness HPI Patient is a 37-year-old female presented after increased epigastric pain gradual onset associated with vomiting. Patient had patient noted to have increased abdominal pain after recent surgery. She had been noted to have a drain placed. Patient prior history of metastatic stomach cancer Krukenberg tumor. She denied diarrhea. Patient markedly diminished appetite. She denied any fever. Allergies: Coded Allergies: LACTOSE (Verified Allergy, Unknown, 12/07/17) LACTOSE-REDUCED FOOD (Verified Allergy, Unknown, vomiting, 12/07/17) NUTRITIONAL SUPPLEMENT,SPECIAL FORMULAS (Verified Allergy, Unknown, vomiting, 12/07/17) Patient History Past Medical History: see triage record Reviewed Nursing Documentation: PMH: Agreed, PSxH: Agreed Nursing Documentation-PMH Past Medical History: No History, Except For Hx Cardiac Problems: No Hx Cancer: Yes Hx Neurological Problems: No Review of Systems All Other Systems: negative except mentioned in HPI Physical Exam Vital Signs Date Time Temp Pulse Resp B/P (MAP) Pulse Ox O2 Delivery O2 Flow Rate FiO2 12/07/17 17:03 98.4 118 20 99/69 96 98.4 12/07/17 19:15 Room Air General Appearance: cachetic, Chronically Ill Head: other - temporal wasting ENT: hearing grossly normal, normal pharynx Neck: supple, no meningismus Respiratory: lungs clear, normal breath sounds Cardiovascular #1: normal peripheral pulses, regular rate, rhythm, no edema Gastrointestinal: soft Neurologic: normal inspection, alert, oriented x3, responsive, shoe patternmaker III-XII nml as tested, motor weakness - generalized Skin: normal inspection Medical Decision Making Diagnostic Impression: Primary Impression: Abdominal pain Additional Impressions: Gastric cancer Hyponatremia Hyperkalemia ER Course Patient presented for abdominal pain. Differential diagnoses included bowel obstruction, ischemic bowel, appendicitis, perforated viscus, abdominal aortic aneurysm, inferior myocardial infarction, viral gastroenteritis Because of complexity of patient's case laboratory testing and imaging studies were ordered.CT abdomen and pelvis read by radiology showed a 6 x 4 cm mass in the pelvis on the right which appears unchanged to slightly increased in size compared to prior exam. There is a small amount of ascites multiple prominent small bowel loops along the left side of the abdomen enteritis cannot be excluded. Patient was started on IV fluids as well as IV antiemetics. Dr. Arellano was contacted for inpatient management due to complexity of medical condition. Dr. Burton was contacted for surgical consult due to prior surgery and possible bowel obstruction vs ileus. Patient was started on IV sodium containing fluids for hyponatremia. Patient did not appear to have active altered mental status had no recent seizures. Labs Test 12/07/17 18:50 White Blood Count 5.8 K/UL (4.8-10.8) Red Blood Count 4.35 M/UL (4.20-5.40) Hemoglobin 13.3 G/DL (12.0-16.0) Hematocrit 38.4 % (37.0-47.0) Mean Corpuscular Volume 88 FL (80-99) Mean Corpuscular Hemoglobin 30.5 PG (27.0-31.0) Mean Corpuscular Hemoglobin Concent 34.5 G/DL (32.0-36.0) Red Cell Distribution Width 12.3 % (11.6-14.8) Platelet Count 326 K/UL (150-450) Mean Platelet Volume 6.2 FL (6.5-10.1) Neutrophils (%) (Auto) 66.4 % (45.0-75.0) Lymphocytes (%) (Auto) 20.0 % (20.0-45.0) Monocytes (%) (Auto) 12.6 % (1.0-10.0) Eosinophils (%) (Auto) 0.0 % (0.0-3.0) Basophils (%) (Auto) 1.0 % (0.0-2.0) Prothrombin Time 9.3 SEC (9.30-11.50) Prothromb Time International Ratio 0.9 (0.9-1.1) Activated Partial Thromboplast Time 27 SEC (23-33) Sodium Level 117 MMOL/L (136-145) Potassium Level 5.7 MMOL/L (3.5-5.1) Chloride Level 85 MMOL/L (98-107) Carbon Dioxide Level 26 MMOL/L (21-32) Anion Gap 6 mmol/L (5-15) Blood Urea Nitrogen 33 mg/dL (7-18) Creatinine 1.2 MG/DL (0.55-1.30) Estimat Glomerular Filtration Rate 50.5 mL/min (>60) Glucose Level 89 MG/DL (74-106) Calcium Level 8.9 MG/DL (8.5-10.1) Total Bilirubin 0.4 MG/DL (0.2-1.0) Aspartate Amino Transf (AST/SGOT) 23 U/L (15-37) Alanine Aminotransferase (ALT/SGPT) 24 U/L (12-78) Alkaline Phosphatase 82 U/L (46-116) Troponin I 0.000 ng/mL (0.000-0.056) Total Protein 6.3 G/DL (6.4-8.2) Albumin 1.7 G/DL (3.4-5.0) Globulin 4.6 g/dL Albumin/Globulin Ratio 0.4 (1.0-2.7) Lipase 120 U/L (73-393) Last Vital Signs Date Time Temp Pulse Resp B/P (MAP) Pulse Ox O2 Delivery O2 Flow Rate FiO2 12/07/17 19:15 98.4 107 15 103/68 96 Room Air 98.4 Status: unchanged Disposition: ADMITTED INPATIENT Condition: Serious Referrals: NOT CHOSEN IPA/,REFERRING (PCP) Santiago Cornejo Dec 07, 2017 19:28
[2017-12-07] MEDS ORDERED: Miralax 17gm pkt ORAL PRN (20:00)
[2017-12-07] MEDS ORDERED: Nitroglycerin Subl 0.4mg tab SL PRN (20:00)
[2017-12-07] MEDS ORDERED: Albuterol/Ipratropium 3ml neb HHN PRN (20:00)
[2017-12-07 20:15] VITALS: BP 101/62
[2017-12-07] MEDS: D5 1/2NS w/KCl 20mEq 1,000 ML IV SCH (20:30)
[2017-12-07] MEDS ORDERED: Cefepime HCl 2 GM in NS 110 ML IV SCH (21:00)
[2017-12-07 21:10] VITALS: BP 102/63
[2017-12-07] MEDS ORDERED: Vancomycin 1gm/D5W 275ml IVPB ONE ×2 (22:00)
[2017-12-07 22:10] VITALS: BP 105/66
[2017-12-08] VITALS: BP 99/68
[2017-12-08] MEDS ORDERED: Vancomycin 1 GM in D5W 275 ML IV SCH (00:30)
[2017-12-08] MEDS ORDERED: Cefepime 2gm ONE (00:43)
[2017-12-08] MEDS ORDERED: Vancomycin 1gm inj IVPB ONE (00:44)
[2017-12-08] MEDS: Heparin 5000 units/ml inj SUBQ SCH ×3 (01:03→21:18)
[2017-12-08] MEDS: D5 1/2NS w/KCl 20mEq 1,000 ML IV SCH (01:04)
[2017-12-08] MEDS: Morphine Sulfate 2mg/ml Inj IVP PRN ×2 (01:28→19:29)
[2017-12-08 04:00] VITALS: BP 99/71
[2017-12-08] MEDS ORDERED: DEXILANT60 MG ORAL (05:48)
[2017-12-08] MEDS ORDERED: SLOW RELEASE I142 MG PO (05:48)
[2017-12-08] MEDS ORDERED: ZOFRAN8 MG ORAL (05:48)
[2017-12-08] MEDS ORDERED: COMPAZINE10 MG ORAL (05:48)
[2017-12-08] MEDS ORDERED: COLACE100 MG/10 GT (05:48)
[2017-12-08] MEDS ORDERED: STOOL SOFTENER100 MG PO (05:48)
[2017-12-08] MEDS ORDERED: TRAMADOL HCL50 MG ORAL (05:48)
--- NOTE | 2017-12-08 07:14 | Consultation ---
CARLOS MARLOW Dec 08, 2017 07:14
[2017-12-08 07:41] LABS: EOSINOPHILS % (AUTO) 0.1 % (0.0-3.0); HEMATOCRIT 34.6 % (37.0-47.0); HEMOGLOBIN 12.2 G/DL (12.0-16.0); LYMPHOCYTES % (AUTO) 15.7 % (20.0-45.0); MEAN CORPUSCULAR VOLUME 88 FL (80-99); MONOCYTES % (AUTO) 17.5 % (1.0-10.0); NEUTROPHILS % (AUTO) 65.7 % (45.0-75.0); PLATELET COUNT 299 K/UL (150-450); RED BLOOD COUNT 3.94 M/UL (4.20-5.40); RED CELL DISTRIBUTION WIDTH 12.4 % (11.6-14.8); WHITE BLOOD COUNT 4.9 K/UL (4.8-10.8)
[2017-12-08 07:47] LABS: ANION GAP 6 mmol/L (5-15); BLOOD UREA NITROGEN 26 mg/dL (7-18); CARBON DIOXIDE 27 MMOL/L (21-32); CHLORIDE 88 MMOL/L (98-107); CREATININE 1.1 MG/DL (0.55-1.30); SODIUM 121 MMOL/L (136-145)
[2017-12-08 07:48] LABS: CALCIUM 8.5 MG/DL (8.5-10.1)
[2017-12-08 07:59] LABS: ALANINE AMINOTRANSFERASE 22 U/L (12-78); ALBUMIN 1.6 G/DL (3.4-5.0); ALBUMIN/GLOBULIN RATIO 0.4 (1.0-2.7); ALKALINE PHOSPHATASE 72 U/L (46-116); ASPARTATE AMINO TRANSFERASE 20 U/L (15-37); BILIRUBIN,TOTAL 0.4 MG/DL (0.2-1.0); CHOLESTEROL 130 MG/DL (< 200); HDL CHOLESTEROL 49 MG/DL (40-60); PHOSPHORUS 3.5 MG/DL (2.5-4.9); TRIGLYCERIDES 103 MG/DL (30-150)
[2017-12-08 08:00] VITALS: BP 101/70
[2017-12-08] MEDS ORDERED: Sodium Polystyrene Sulfonate 15gm Powder ORAL ONE (08:00)
--- NOTE | 2017-12-08 09:44 | Diagnostic Imaging Report ---
Indication: Abdominal pain Technique: CT of the abdomen and pelvis utilizing automated exposure control with intravenous contrast. Venous scanning performed. CT dose: Total DLP 417 mGycm; CTDI vol 9.2 mGy Comparison: 11/07/2017 Findings: Lung bases are clear. The liver, adrenal glands, spleen and kidneys are grossly unremarkable. There is slight prominence of the pancreatic duct. No focal pancreatic abnormality is are identified. Gallbladder is contracted without CT dense gallstones. Postsurgical changes of apparent partial gastrectomy are noted. Duodenum and proximal jejunal loops are dilated. There is wall thickening or enhancement of small bowel loops distally. A catheter is seen in the left pelvis. There is mild ascites with slight peritoneal thickening. There is redemonstration of a solid right adnexal mass grossly measuring 6.1 cm. No gross free intraperitoneal air is identified. Osseous structures demonstrate no acute abnormality. Impression: Post surgical changes of apparent partial gastrectomy with gastrojejunostomy for reported gastric carcinoma status post resection with positive margins. Dilated afferent duodenum and proximal jejunal loops without definitive transition point. Partial obstruction cannot be excluded. Clinical correlation recommended. Wall thickening of small bowel loops may suggest nonspecific enteritis with carcinomatosis not excluded. Right posterior pelvic mass could represent an adnexal mass or Krukenberg tumor. Clinical correlation recommended. Mild ascites with mild peritoneal enhancement. Question tiny focus of extraluminal gas in the left anterior abdomen series 3 image 35. Peritoneal catheter also noted. Clinical correlation recommended. Other findings of the abdomen and pelvis as above. Findings discussed with Dr. Arellano at 0930 hours [address] phone. The CT scanner at [facility] is accredited by the [employer] and the scans are performed using protocols designed to limit radiation exposure to as low as reasonably achievable to attain images of sufficient resolution adequate for diagnostic evaluation.
--- NOTE | 2017-12-08 09:46 | History and Physical ---
History of Present Illness General Date patient seen: Dec 08, 2017 Reason for Hospitalization: Generalized Weakness Present Illness HPI 37-year-old female with recently diagnosed gastric cancer, s/p resection with positive margins, presented after increased epigastric pain gradual onset associated with vomiting. . She denied diarrhea. she looks extremely cachectic with sunken eyes, somnolent. Boyfriend at the bed site who is providing the HPI. Allergies: Coded Allergies: LACTOSE (Verified Allergy, Unknown, 12/07/17) LACTOSE-REDUCED FOOD (Verified Allergy, Unknown, vomiting, 12/07/17) NUTRITIONAL SUPPLEMENT,SPECIAL FORMULAS (Verified Allergy, Unknown, vomiting, 12/07/17) Medication History Scheduled Dexlansoprazole (Dexilant), 60 MG ORAL DAILY, (Reported) Docusate Sodium (Docusate Sodium), 100 MG GT TWICE A DAY, (Reported) Scheduled PRN Hydrocodone Bit/Acetaminophen 5-325* ([place] 5-325 Tablet*), 1 TAB ORAL Q6HR PRN for For Pain, (Reported) Ondansetron Hcl* (Zofran*), 8 MG ORAL Q6H PRN for Nausea & Vomiting, (Reported) Prochlorperazine (Compazine*), 10 MG ORAL Q6H PRN for Nausea & Vomiting, ( Reported) Tramadol Hcl* (Ultram*), 50 MG ORAL Q6H PRN for For Pain, (Reported) Miscellaneous Medications Docusate Sodium (Stool Softener), 100 MG PO, (Reported) Ferrous Sulfate (Slow Release Iron), 142 MG PO, (Reported) Discontinued Medications Docusate Sodium* (Colace*), 100 MG ORAL TWICE A DAY, (Reported) Discontinued Reason: Pt stopped taking med Omeprazole (Omeprazole), 20 MG ORAL DAILY, (Reported) Discontinued Reason: Pt stopped taking med Patient History Healthcare decision maker Resuscitation status Advanced Directive on File Family History Family History: Patient reports no known family medical history. Review of Systems Constitutional: Reports: malaise, weakness Gastrointestinal: Reports: abdominal pain, other - no appetitie Physical Exam General Appearance: cachetic Lines, tubes and drains: peripheral HEENT: normocephalic, atraumatic Neck: non-tender, supple Respiratory/Chest: chest wall non-tender, lungs clear, normal breath sounds Cardiovascular/Chest: normal peripheral pulses, normal rate Abdomen: normal bowel sounds, non tender Genitourinary/Rectal: normal genital exam, normal rectal exam Last 24 Hour Vital Signs Date Time Temp Pulse Resp B/P (MAP) Pulse Ox O2 Delivery O2 Flow Rate FiO2 12/08/17 08:00 97.3 95 18 101/70 100 Room Air 97.3 12/08/17 04:00 97.5 94 16 99/71 100 Room Air 97.5 12/08/17 04:00 94 12/08/17 01:58 97.8 12/08/17 00:00 97.2 94 18 99/68 100 Room Air 97.2 12/07/17 22:15 97.8 94 14 105/66 100 Room Air 97.8 12/07/17 22:10 97.8 94 14 105/66 100 Room Air 97.8 12/07/17 21:10 97.9 92 14 102/63 100 Room Air 97.9 12/07/17 20:15 98.3 88 14 101/62 98 Room Air 98.3 12/07/17 19:15 98.4 107 15 103/68 96 Room Air 98.4 12/07/17 17:03 98.4 118 20 99/69 96 98.4 Intake and Output 12/07/17 12/08/17 19:00 07:00 Intake Total 120 ml Balance 120 ml Intake Oral 120 ml Laboratory Tests Test 12/07/17 18:50 12/08/17 06:45 White Blood Count 5.8 K/UL (4.8-10.8) 4.9 K/UL (4.8-10.8) Red Blood Count 4.35 M/UL (4.20-5.40) 3.94 M/UL (4.20-5.40) L Hemoglobin 13.3 G/DL (12.0-16.0) 12.2 G/DL (12.0-16.0) Hematocrit 38.4 % (37.0-47.0) 34.6 % (37.0-47.0) L Mean Corpuscular Volume 88 FL (80-99) 88 FL (80-99) Mean Corpuscular Hemoglobin 30.5 PG (27.0-31.0) 30.9 PG (27.0-31.0) Mean Corpuscular Hemoglobin Concent 34.5 G/DL (32.0-36.0) 35.2 G/DL (32.0-36.0) Red Cell Distribution Width 12.3 % (11.6-14.8) 12.4 % (11.6-14.8) Platelet Count 326 K/UL (150-450) 299 K/UL (150-450) Mean Platelet Volume 6.2 FL (6.5-10.1) L 6.5 FL (6.5-10.1) Neutrophils (%) (Auto) 66.4 % (45.0-75.0) 65.7 % (45.0-75.0) Lymphocytes (%) (Auto) 20.0 % (20.0-45.0) 15.7 % (20.0-45.0) L Monocytes (%) (Auto) 12.6 % (1.0-10.0) H 17.5 % (1.0-10.0) H Eosinophils (%) (Auto) 0.0 % (0.0-3.0) 0.1 % (0.0-3.0) Basophils (%) (Auto) 1.0 % (0.0-2.0) 1.0 % (0.0-2.0) Prothrombin Time 9.3 SEC (9.30-11.50) Prothromb Time International Ratio 0.9 (0.9-1.1) Activated Partial Thromboplast Time 27 SEC (23-33) Sodium Level 117 MMOL/L (136-145) *L 121 MMOL/L (136-145) L Potassium Level 5.7 MMOL/L (3.5-5.1) H 5.0 MMOL/L (3.5-5.1) Chloride Level 85 MMOL/L (98-107) L 88 MMOL/L (98-107) L Carbon Dioxide Level 26 MMOL/L (21-32) 27 MMOL/L (21-32) Anion Gap 6 mmol/L (5-15) 6 mmol/L (5-15) Blood Urea Nitrogen 33 mg/dL (7-18) H 26 mg/dL (7-18) H Creatinine 1.2 MG/DL (0.55-1.30) 1.1 MG/DL (0.55-1.30) Estimat Glomerular Filtration Rate 50.5 mL/min (>60) 55.9 mL/min (>60) Glucose Level 89 MG/DL (74-106) 108 MG/DL (74-106) H Calcium Level 8.9 MG/DL (8.5-10.1) 8.5 MG/DL (8.5-10.1) Total Bilirubin 0.4 MG/DL (0.2-1.0) 0.4 MG/DL (0.2-1.0) Aspartate Amino Transf (AST/SGOT) 23 U/L (15-37) 20 U/L (15-37) Alanine Aminotransferase (ALT/SGPT) 24 U/L (12-78) 22 U/L (12-78) Alkaline Phosphatase 82 U/L (46-116) 72 U/L (46-116) Troponin I 0.000 ng/mL (0.000-0.056) Total Protein 6.3 G/DL (6.4-8.2) L 5.9 G/DL (6.4-8.2) L Albumin 1.7 G/DL (3.4-5.0) L 1.6 G/DL (3.4-5.0) L Globulin 4.6 g/dL 4.3 g/dL Albumin/Globulin Ratio 0.4 (1.0-2.7) L 0.4 (1.0-2.7) L Lipase 120 U/L (73-393) Hemoglobin A1c 5.6 % (4.3-6.0) Uric Acid 7.2 MG/DL (2.6-7.2) Phosphorus Level 3.5 MG/DL (2.5-4.9) Magnesium Level 1.9 MG/DL (1.8-2.4) Triglycerides Level 103 MG/DL (30-150) Cholesterol Level 130 MG/DL (< 200) LDL Cholesterol 68 mg/dL (<100) HDL Cholesterol 49 MG/DL (40-60) Cholesterol/HDL Ratio 2.7 (3.3-4.4) L Thyroid Stimulating Hormone (TSH) 2.281 uiU/mL (0.358-3.740) Height (Feet): 5 Height (Inches): 6.00 Weight (Pounds): 90 Medications Current Medications Medications (Trade) Dose Ordered Sig/Kina Route PRN Reason Start Time Stop Time Status Last Admin Dose Admin Acetaminophen (Tylenol) 650 mg Q4H PRN ORAL fever 12/07/17 20:00 01/06/18 19:59 Albuterol/ Ipratropium (Albuterol/ Ipratropium) 3 ml EVERY 4 HOURS PRN HHN Shortness of Breath 12/07/17 20:00 12/12/17 19:59 Cefepime HCl 2 gm/ Sodium Chloride 110 ml @ 220 mls/hr Q24H IV 12/07/17 21:00 12/14/17 20:59 12/08/17 01:01 Dextrose (Dextrose 50%) STAT PRN IV Hypoglycemia 12/07/17 20:00 01/06/18 19:59 Heparin Sodium (Porcine) (Heparin 5000 units/ml) 5,000 units EVERY 12 HOURS SUBQ 12/07/17 21:00 01/06/18 20:59 12/08/17 08:57 Morphine Sulfate (Morphine Sulfate) 2 mg EVERY 4 HOURS PRN IVP Moderate Pain (Pain Scale 4-6) 12/07/17 20:00 12/14/17 19:59 12/08/17 01:28 Nitroglycerin (Ntg) 0.4 mg Q5MINS PRN SL Prn Chest Pain 12/07/17 20:00 01/06/18 19:59 Ondansetron HCl (Zofran) 4 mg Q6H PRN IVP Nausea & Vomiting 12/07/17 20:00 01/06/18 19:59 Polyethylene Glycol (Miralax) 17 gm DAILYPRN PRN ORAL Constipation 12/07/17 20:00 01/06/18 19:59 Temazepam (Restoril) 15 mg HSPRN PRN ORAL Insomnia 12/07/17 20:00 12/14/17 19:59 Vancomycin HCl 500 mg/Sodium Chloride 110 ml @ 110 mls/hr Q12H IVPB 12/08/17 10:00 12/13/17 09:59 Assessment/Plan Problem List: (1) Intractable nausea and vomiting ICD Codes: R11.2 - Nausea with vomiting, unspecified SNOMED: 499570842 (2) Metastatic cancer ICD Codes: C79.9 - Secondary malignant neoplasm of unspecified site SNOMED: 238815449 (3) Protein-calorie malnutrition, severe ICD Codes: E43 - Unspecified severe protein-calorie malnutrition SNOMED: 249579277 (4) Gastric cancer ICD Codes: C16.9 - Malignant neoplasm of stomach, unspecified SNOMED: 941005044 (5) Episode of generalized weakness ICD Codes: R53.1 - Weakness SNOMED: 02430848 Assessment/Plan npo IV fluid surgery and oncology, GI consult check electrolytes symptomatic treatment social service consult pt need comfort and hospice care/ PENNY GOMEZ Dec 08, 2017 09:46
--- NOTE | 2017-12-08 09:57 | Consultation ---
Consult Note Consult Note asked to eval for low K Patient is a 37-year-old female presented after increased epigastric pain gradual onset associated with vomiting. Patient had patient noted to have increased abdominal pain after recent surgery. She had been noted to have a drain placed. Patient prior history of metastatic stomach cancer Krukenberg tumor. She denied diarrhea. Patient markedly diminished appetite. She denied any fever. Allergies: Coded Allergies: LACTOSE (Verified Allergy, Unknown, 12/07/17) LACTOSE-REDUCED FOOD (Verified Allergy, Unknown, vomiting, 12/07/17) NUTRITIONAL SUPPLEMENT,SPECIAL FORMULAS (Verified Allergy, Unknown, vomiting, 12/07/17) Assessment/Plan Low Na likely depletional (1) Intractable nausea and vomiting (2) Metastatic cancer (3) Protein-calorie malnutrition, severe (4) Gastric cancer (5) Episode of generalized weakness 3% saline monitor lytes urine studies per orders CARLOS MARLOW Dec 08, 2017 09:57
[2017-12-08] MEDS ORDERED: Vancomycin 500 MG in NS 110 ML IVPB SCH (10:00)
[2017-12-08] MEDS ORDERED: NaCl 3% 500ml 500 ML IV ONE (11:00)
[2017-12-08 12:00] VITALS: BP 120/68
--- NOTE | 2017-12-08 13:45 | General Progress Note ---
Progress Note Progress Note Surgery: full consult dictated. 37F with metastatic Krukenberg tumor. history of gastric perforation from tumor with B2 gastro-j. all margins positive. all biopsies including ovary positive. unfortunately very poor prognosis. was discharged in stable condition tolerating diet and having BM's approximately 2 weeks ago. since has had significant failure to thrive, weight loss, malnutrition and dehydration. was unable to obtain chemo because of this. was seen in office this past sunday when noted to be declining so rapidly and not taking care of herself. was recommended to go straight to the ED from my office but did not and presented to ED last night with severe dehydration, worsening pain, n/v, malnutrition. labs reviewed. CT reviewed. afferent limb of B2 very distended and dilated. possible partial obstruction distally. given her current condition and history do not advise revision of her B2 and will treat conservatively with small meals multiple times a day. was passing flatus and BM's up till admission so unlikely obstructed but possible. if so likely from metastatic cancer which is growing. overall her prognosis is very poor. will continue to discuss with her condition but she at times is in denial. may benefit from hospice care if interested. very unfortunate case for such a young vibrant woman. will follow with recs. Torrey Burton Dec 08, 2017 13:45
[2017-12-08 16:00] VITALS: BP 113/75
[2017-12-08 19:09] LABS: APPEARANCE,URINE CLEAR; BILIRUBIN, URINE NEGATIVE (NEGATIVE); GLUCOSE, URINE (UA) NEGATIVE (NEGATIVE); KETONES,URINE 2+ (NEGATIVE); LEUKOCYTE ESTERASE ,URINE 1+ (NEGATIVE); NITRITE,URINE NEGATIVE (NEGATIVE); PH,URINE 6 (4.5-8.0); PROTEIN,URINE 1+ (NEGATIVE); UROBILINOGEN,URINE NORMAL MG/DL (0.0-1.0)
[2017-12-08 19:11] LABS: COLOR,URINE YELLOW
--- NOTE | 2017-12-08 19:47 | Consultation ---
Consult Note Consult Note [id number] MILKA AGUILAR M.D. Dec 08, 2017 19:47
[2017-12-08 20:00] VITALS: BP 102/69
--- NOTE | 2017-12-08 20:45 | Consultation ---
DATE OF CONSULTATION: 12/08/2017 CONSULTING PHYSICIAN: Torrey Burton M.D. ATTENDING PHYSICIAN: Jolene Arellano M.D. REASON FOR CONSULTATION: Worsening abdominal pain, generalized weakness, nausea, and emesis. HISTORY OF PRESENT ILLNESS: The patient is a 37-year-old female, who is well known to me. She initially presented a few weeks back with complaints of worsening abdominal pain for 4 to 6 weeks with significant weight loss, nausea, vomiting, failure to thrive, and was transferred by EMS after fall/syncopal episode while at [facility]. She was initially noted to have CT scan with likely gastric perforation with significant amount of intra-abdominal free air and fluid and a large solid right ovary. She was at that time taken to the operating room for exploration at which time, she was found to have a large circumferential distal gastric tumor with a large perforation, a large metastatic right ovary, multiple metastatic peritoneal implants, purulent peritoneal fluid, and required a distal gastrectomy with B2 configuration gastrojejunostomy, biopsy of the ovarian mass, abdominal washout, and closure with drain placement. The followup path was noted for her to have a metastatic gastric cancer, gastric Krukenberg tumor/cancer. She spent approximately 2 weeks in the hospital recovering at which time, fortunately improved and was able to tolerate diet, ambulate, was having normal bowel movements, and otherwise comfortable upon discharge. She was initially told to follow up with me postoperatively in the first week, but did not. I came in contact with her and her mother over the phone, and she finally returned to see me in the office this past Tuesday, December 05, 2017, at which time, she was noted to be significantly dehydrated with failure to thrive, significant weight loss, markedly diminished appetite, and overall looking very poor. She was having worsening abdominal pain, inability to tolerate diet, nausea, and emesis. In the office, she was complaining of worsening pain and requesting pain medication. She and her mother in the office were very concerned about the drain and wanted the drain removed even despite the fact that it was putting out 500 mL of serous fluid per day. The mother and the patient felt as if the drain was the source of her pain, inability to tolerate diet, was the source of all of her problems. After a long discussion regarding drain, drain placement, location of the drain, reason for the drain and the risks of removing the drain currently given its significant output, and her current overall condition and Krukenberg tumor, they expressed understanding and left drain in place and I highly recommended immediate evaluation in the emergency department and admission. At that time, they told me that they would go to the hospital and be admitted, but unfortunately, they did not. I waited for them throughout the day, but I did not hear from them. Last night, 12/07/2017, the patient and her boyfriend presented to emergency department at [facility] with complaints similar to the prior ones. She is markedly dehydrated, losing weight, unable to tolerate diet, and laboratory data was very concerning for severe dehydration and malnutrition. She was admitted for further care and management in which I was called to assist. When seen at the bedside today, the patient is looking very cachectic, is very dehydrated, and has lost more weight. Unfortunately, she does not feel well or look well. I reviewed her initial laboratory data upon admission and the CT findings upon admission with her and her overall condition. PAST MEDICAL HISTORY: Metastatic Krukenberg tumor. PAST SURGICAL HISTORY: Exploratory laparotomy with a gastric perforation which was later found out to be a perforated Krukenberg tumor that was metastatic with peritoneal implants and metastasis to the ovaries. SOCIAL HISTORY: Denies tobacco, alcohol, or IV drugs. ALLERGIES: Lactose, lactose-related food products, nutritional supplements, and some formulas. REVIEW OF SYSTEMS: Twelve-point review of systems as described in HPI. PHYSICAL EXAMINATION: VITAL SIGNS: Temperature 97.3, pulse 95, blood pressure 101/70, respiratory rate 18, pulse oximetry 100% on room air. GENERAL: Alert, awake, oriented x3, in mild distress with significant cachexia, weakness, and fatigue. HEENT: PERRLA. Extraocular movements intact. Cranial nerves II through XII grossly intact. Significant wasting of the facial tissues. NECK: Within normal limits. LUNGS: Clear to auscultation bilaterally. CARDIOVASCULAR SYSTEM: Regular rate and rhythm. S1, S2 positive. ABDOMEN: Soft, distended, and mildly tender on palpation. Midline wound from prior surgery well-healed. Left abdominal drain with significant serous output. EXTREMITIES: Within normal limits minus severe muscle wasting. LABORATORY DATA: Sodium on admission 117 and currently 121, potassium on admission 5.7 and currently 5.0, chloride 85, bicarbonate 26, anion gap 6, BUN 33, creatinine 1.2, GFR 50.5, glucose 89, calcium 8.9, total bilirubin 0.4, AST and ALT 23 and 24 respectively. Alkaline phosphatase 82. Albumin 1.7. Lipase 120. TSH 2.281. RADIOLOGICAL DATA: CT of abdomen and pelvis identifies postsurgical changes with apparent prior partial gastrectomy and gastrojejunostomy for reported gastric carcinoma, status post resection with positive margins, dilated afferent duodenum and proximal jejunal loops noted without definitive transition point, partial obstruction cannot be excluded. Clinical correlation recommended. Wall thickening of the small bowel may suggest nonspecific enteritis versus carcinomatosis not excluded, right posterior pelvic mass could represent adnexal mass or Krukenberg tumor, mild ascites with mild peritoneal enhancement, peritoneal catheter noted. DISCUSSION AND DECISION-MAKING: This is a 37-year-old female with metastatic Krukenberg tumor, who presents with worsening abdominal pain, diminished appetite, nausea, and emesis in consultation. The patient is severely dehydrated, malnourished, has not been taking care of herself, and has not been compliant with medical care and plan since last discharge. She has lost significant amount of weight and recently saw an oncologist for scheduled chemotherapy, but unfortunately given her malnutrition, she was unable to proceed. She currently presents with worsening abdominal pain, nausea, vomiting, and failure to thrive. She is significantly dehydrated and labs and CT scan as noted above. Unfortunately, her prognosis is fairly poor and with her current condition, it is very guarded. At this time, I recommend resuscitation with IV fluids, diet as tolerated, and we will continue to discuss with the patient her care and potential future plans and outcome. Unfortunately, the patient and her mother are at times in denial of her condition and there is a social situation between her and mother that makes care difficult at times. As for the CT findings, the patient is still passing flatus and having bowel movements, but her afferent Bulmaro limb is significantly distended and dilated and likely filling before her efferent limb. Unfortunately, given her history and metastatic cancer, it is very difficult to revise her B2 at this time. Medical management with smaller feeds multiple times a day when she is able to increase her appetite and tolerate diet after she is resuscitated fortunately. She may also have a partial obstruction or tumor growth causing obstruction distally, but no transition point can be seen. There is a significant wall thickening throughout the remaining of the small bowel which could be from the peritoneal implants as well. At this time, we will continue to monitor her and obtain an x-ray to follow up and to see if the contrast has moved through or is stagnant. We will continue with rehydration and oral intake as tolerated. Torrey Burton M.D. DR: Nacho JOB#: [id number] CC: MUNA
[2017-12-09] VITALS: BP 108/69
[2017-12-09] MEDS: Morphine Sulfate 2mg/ml Inj IVP PRN ×4 (01:05→20:22)
[2017-12-09 04:00] VITALS: BP 97/75
[2017-12-09 08:00] VITALS: BP 97/70
[2017-12-09] MEDS: Heparin 5000 units/ml inj SUBQ SCH ×2 (09:29→20:31)
[2017-12-09 09:53] LABS: BASOPHILS % (AUTO) 1.1 % (0.0-2.0); HEMATOCRIT 39.7 % (37.0-47.0); HEMOGLOBIN 13.3 G/DL (12.0-16.0); LYMPHOCYTES % (AUTO) 16.8 % (20.0-45.0); MEAN CORPUSCULAR VOLUME 90 FL (80-99); MONOCYTES % (AUTO) 11.4 % (1.0-10.0); NEUTROPHILS % (AUTO) 70.6 % (45.0-75.0); PLATELET COUNT 364 K/UL (150-450); RED BLOOD COUNT 4.42 M/UL (4.20-5.40); RED CELL DISTRIBUTION WIDTH 12.8 % (11.6-14.8); WHITE BLOOD COUNT 4.5 K/UL (4.8-10.8)
[2017-12-09 10:04] LABS: INR 0.9 (0.9-1.1)
[2017-12-09 10:07] LABS: ALANINE AMINOTRANSFERASE 25 U/L (12-78); ALBUMIN 1.7 G/DL (3.4-5.0); ALBUMIN/GLOBULIN RATIO 0.3 (1.0-2.7); ALKALINE PHOSPHATASE 96 U/L (46-116); ANION GAP 9 mmol/L (5-15); ASPARTATE AMINO TRANSFERASE 23 U/L (15-37); BILIRUBIN,TOTAL 0.5 MG/DL (0.2-1.0); BLOOD UREA NITROGEN 20 mg/dL (7-18); CALCIUM 9.2 MG/DL (8.5-10.1); CARBON DIOXIDE 25 MMOL/L (21-32); CHLORIDE 94 MMOL/L (98-107); PHOSPHORUS 4.4 MG/DL (2.5-4.9); POTASSIUM 4.9 MMOL/L (3.5-5.1); SODIUM 128 MMOL/L (136-145)
--- NOTE | 2017-12-09 10:45 | Diagnostic Imaging Report ---
Indication: Abdominal pain Technique: Supine abdomen Comparison: CT abdomen and pelvis 12/07/2017 Findings: Bowel gas pattern is nonspecific. Mildly prominent loops of the left abdomen are seen. Surgical changes are noted in the upper abdomen. Contrast is noted in the bladder. Impression: Nonspecific bowel gas pattern with mild to prominent loops of small bowel in the left abdomen. Postsurgical changes of the left upper abdomen. Clinical correlation/follow-up recommended.
--- NOTE | 2017-12-09 11:27 | Pulmonology Progress Note ---
Assessment/Plan Problems: (1) Intractable nausea and vomiting (2) Metastatic cancer (3) Protein-calorie malnutrition, severe (4) Gastric cancer (5) Episode of generalized weakness Subjective ROS Limited/Unobtainable: No Constitutional: Reports: no symptoms HEENT: Repors: no symptoms Respiratory: Reports: no symptoms Allergies: Coded Allergies: LACTOSE (Verified Allergy, Unknown, 12/07/17) LACTOSE-REDUCED FOOD (Verified Allergy, Unknown, vomiting, 12/07/17) NUTRITIONAL SUPPLEMENT,SPECIAL FORMULAS (Verified Allergy, Unknown, vomiting, 12/07/17) Objective Last 24 Hour Vital Signs Date Time Temp Pulse Resp B/P (MAP) Pulse Ox O2 Delivery O2 Flow Rate FiO2 12/09/17 08:00 92 12/09/17 08:00 96.8 108 18 97/70 97 96.8 12/09/17 04:00 98.1 99 18 97/75 99 Room Air 98.1 12/09/17 04:00 92 12/09/17 00:00 96.6 95 20 108/69 100 Room Air 96.6 12/09/17 00:00 105 12/08/17 20:00 103 12/08/17 20:00 98.2 99 18 102/69 98 Room Air 98.2 12/08/17 16:00 96 12/08/17 16:00 97.9 100 18 113/75 100 Room Air 97.9 12/08/17 12:00 96 12/08/17 12:00 96.0 91 18 120/68 100 Room Air 96.0 Intake and Output 12/08/17 12/09/17 19:00 07:00 Intake Total 675 ml 270 ml Output Total 240 ml Balance 675 ml 30 ml Intake Oral 325 ml IV Total 350 ml 270 ml Output Drainage Total 240 ml # Voids 2 1 # Bowel Movements 1 Objective General Appearance: cachectic HEENT: normocephalic, atraumatic, anicteric Respiratory/Chest: normal breath sounds Cardiovascular: normal peripheral pulses, normal rate, regular rhythm Abdomen: tender, NICOLE tube Genitourinary: normal external genitalia Extremities: no cyanosis Skin: no rash, no lesions Laboratory Tests 12/08/17 17:30: Urine Color Yellow, Urine Appearance Clear, Urine pH 6, Urine Specific [place] 1.015, Urine Protein 1+H, Urine Glucose (UA) Negative, Urine Ketones 2+H, Urine Occult Blood Negative, Urine Nitrite Negative, Urine Bilirubin Negative, Urine Urobilinogen Normal, Urine Leukocyte Esterase 1+H, Urine RBC 0-2, Urine WBC 2-4 , Urine Squamous Epithelial Cells Few, Urine Bacteria Few, Urine Osmolality 616H , Urine Random Sodium < 10L 12/09/17 09:15: White Blood Count 4.5L, Red Blood Count 4.42, Hemoglobin 13.3, Hematocrit 39.7, Mean Corpuscular Volume 90, Mean Corpuscular Hemoglobin 30.1, Mean Corpuscular Hemoglobin Concent 33.5, Red Cell Distribution Width 12.8, Platelet Count 364, Mean Platelet Volume 5.9L, Neutrophils (%) (Auto) 70.6, Lymphocytes (%) (Auto) 16.8L, Monocytes (%) (Auto) 11.4H, Eosinophils (%) (Auto) 0.0, Basophils (%) ( Auto) 1.1, Prothrombin Time 9.4, Prothromb Time International Ratio 0.9, Activated Partial Thromboplast Time 27, Sodium Level 128L, Potassium Level 4.9, Chloride Level 94L, Carbon Dioxide Level 25, Anion Gap 9, Blood Urea Nitrogen 20H, Creatinine 1.0, Estimat Glomerular Filtration Rate > 60, Glucose Level 97, Calcium Level 9.2, Phosphorus Level 4.4, Magnesium Level 2.0, Total Bilirubin 0.5, Aspartate Amino Transf (AST/SGOT) 23, Alanine Aminotransferase (ALT/SGPT) 25, Alkaline Phosphatase 96, C-Reactive Protein, Quantitative 13.4H, Total Protein 6.6, Albumin 1.7L, Globulin 4.9, Albumin/Globulin Ratio 0.3L, Vancomycin Level Trough 6.6 Current Medications Medications (Trade) Dose Ordered Sig/Kina Route PRN Reason Start Time Stop Time Status Last Admin Dose Admin Acetaminophen (Tylenol) 650 mg Q4H PRN ORAL fever 12/07/17 20:00 01/06/18 19:59 Albuterol/ Ipratropium (Albuterol/ Ipratropium) 3 ml EVERY 4 HOURS PRN HHN Shortness of Breath 12/07/17 20:00 12/12/17 19:59 Dextrose (Dextrose 50%) STAT PRN IV Hypoglycemia 12/07/17 20:00 01/06/18 19:59 Heparin Sodium (Porcine) (Heparin 5000 units/ml) 5,000 units EVERY 12 HOURS SUBQ 12/07/17 21:00 01/06/18 20:59 12/09/17 09:29 Morphine Sulfate (Morphine Sulfate) 2 mg EVERY 4 HOURS PRN IVP Moderate Pain (Pain Scale 4-6) 12/07/17 20:00 12/14/17 19:59 12/09/17 06:10 Nitroglycerin (Ntg) 0.4 mg Q5MINS PRN SL Prn Chest Pain 12/07/17 20:00 01/06/18 19:59 Ondansetron HCl (Zofran) 4 mg Q6H PRN IVP Nausea & Vomiting 12/07/17 20:00 01/06/18 19:59 12/08/17 13:09 Polyethylene Glycol (Miralax) 17 gm DAILYPRN PRN ORAL Constipation 12/07/17 20:00 01/06/18 19:59 Sodium Chloride 500 ml @ 30 mls/hr ONCE ONCE IV 12/09/17 12:00 12/10/17 04:39 Temazepam (Restoril) 15 mg HSPRN PRN ORAL Insomnia 12/07/17 20:00 12/14/17 19:59 PENNY GOMEZ Dec 09, 2017 11:27
[2017-12-09 12:00] VITALS: BP 104/70
[2017-12-09] MEDS ORDERED: NaCl 3% 500ml 500 ML IV ONE (12:00)
[2017-12-09] MEDS ORDERED: Nitroglycerin Subl 0.4mg tab SL PRN (12:45)
[2017-12-09] MEDS ORDERED: Albuterol/Ipratropium 3ml neb HHN PRN (13:00)
--- NOTE | 2017-12-09 13:00 | Consultation ---
History of Present Illness General Date patient seen: Dec 09, 2017 Chief Complaint: Generalized Weakness Present Illness Allergies: Coded Allergies: LACTOSE (Verified Allergy, Unknown, 12/07/17) LACTOSE-REDUCED FOOD (Verified Allergy, Unknown, vomiting, 12/07/17) NUTRITIONAL SUPPLEMENT,SPECIAL FORMULAS (Verified Allergy, Unknown, vomiting, 12/07/17) Medication History Scheduled Dexlansoprazole (Dexilant), 60 MG ORAL DAILY, (Reported) Docusate Sodium (Docusate Sodium), 100 MG GT TWICE A DAY, (Reported) Scheduled PRN Hydrocodone Bit/Acetaminophen 5-325* ([place] 5-325 Tablet*), 1 TAB ORAL Q6HR PRN for For Pain, (Reported) Ondansetron Hcl* (Zofran*), 8 MG ORAL Q6H PRN for Nausea & Vomiting, (Reported) Prochlorperazine (Compazine*), 10 MG ORAL Q6H PRN for Nausea & Vomiting, ( Reported) Tramadol Hcl* (Ultram*), 50 MG ORAL Q6H PRN for For Pain, (Reported) Miscellaneous Medications Docusate Sodium (Stool Softener), 100 MG PO, (Reported) Ferrous Sulfate (Slow Release Iron), 142 MG PO, (Reported) Discontinued Medications Docusate Sodium* (Colace*), 100 MG ORAL TWICE A DAY, (Reported) Discontinued Reason: Pt stopped taking med Omeprazole (Omeprazole), 20 MG ORAL DAILY, (Reported) Discontinued Reason: Pt stopped taking med Patient History Healthcare decision maker Resuscitation status Advanced Directive on File Physical Exam Last 24 Hour Vital Signs Date Time Temp Pulse Resp B/P (MAP) Pulse Ox O2 Delivery O2 Flow Rate FiO2 12/09/17 12:00 96.8 103 18 104/70 97 96.8 12/09/17 08:00 92 12/09/17 08:00 96.8 108 18 97/70 97 96.8 12/09/17 04:00 98.1 99 18 97/75 99 Room Air 98.1 12/09/17 04:00 92 12/09/17 00:00 96.6 95 20 108/69 100 Room Air 96.6 12/09/17 00:00 105 12/08/17 20:00 103 12/08/17 20:00 98.2 99 18 102/69 98 Room Air 98.2 12/08/17 16:00 96 12/08/17 16:00 97.9 100 18 113/75 100 Room Air 97.9 Intake and Output 12/08/17 12/09/17 19:00 07:00 Intake Total 825 ml 270 ml Output Total 30 ml 240 ml Balance 795 ml 30 ml Intake Oral 475 ml IV Total 350 ml 270 ml Output Drainage Total 30 ml 240 ml # Voids 4 1 # Bowel Movements 1 Laboratory Tests Test 12/08/17 17:30 12/09/17 09:15 Urine Color Yellow Urine Appearance Clear Urine pH 6 (4.5-8.0) Urine Specific [place] 1.015 (1.005-1.035) Urine Protein 1+ (NEGATIVE) H Urine Glucose (UA) Negative (NEGATIVE) Urine Ketones 2+ (NEGATIVE) H Urine Occult Blood Negative (NEGATIVE) Urine Nitrite Negative (NEGATIVE) Urine Bilirubin Negative (NEGATIVE) Urine Urobilinogen Normal MG/DL (0.0-1.0) Urine Leukocyte Esterase 1+ (NEGATIVE) H Urine RBC 0-2 /HPF (0 - 2) Urine WBC 2-4 /HPF (0 - 2) Urine Squamous Epithelial Cells Few /LPF (NONE/OCC) Urine Bacteria Few /HPF (NONE) Urine Osmolality 616 mOsm/kg (429-449) H Urine Random Sodium < 10 mmol/L (20-110) L White Blood Count 4.5 K/UL (4.8-10.8) L Red Blood Count 4.42 M/UL (4.20-5.40) Hemoglobin 13.3 G/DL (12.0-16.0) Hematocrit 39.7 % (37.0-47.0) Mean Corpuscular Volume 90 FL (80-99) Mean Corpuscular Hemoglobin 30.1 PG (27.0-31.0) Mean Corpuscular Hemoglobin Concent 33.5 G/DL (32.0-36.0) Red Cell Distribution Width 12.8 % (11.6-14.8) Platelet Count 364 K/UL (150-450) Mean Platelet Volume 5.9 FL (6.5-10.1) L Neutrophils (%) (Auto) 70.6 % (45.0-75.0) Lymphocytes (%) (Auto) 16.8 % (20.0-45.0) L Monocytes (%) (Auto) 11.4 % (1.0-10.0) H Eosinophils (%) (Auto) 0.0 % (0.0-3.0) Basophils (%) (Auto) 1.1 % (0.0-2.0) Prothrombin Time 9.4 SEC (9.30-11.50) Prothromb Time International Ratio 0.9 (0.9-1.1) Activated Partial Thromboplast Time 27 SEC (23-33) Sodium Level 128 MMOL/L (136-145) L Potassium Level 4.9 MMOL/L (3.5-5.1) Chloride Level 94 MMOL/L (98-107) L Carbon Dioxide Level 25 MMOL/L (21-32) Anion Gap 9 mmol/L (5-15) Blood Urea Nitrogen 20 mg/dL (7-18) H Creatinine 1.0 MG/DL (0.55-1.30) Estimat Glomerular Filtration Rate > 60 mL/min (>60) Glucose Level 97 MG/DL (74-106) Calcium Level 9.2 MG/DL (8.5-10.1) Phosphorus Level 4.4 MG/DL (2.5-4.9) Magnesium Level 2.0 MG/DL (1.8-2.4) Total Bilirubin 0.5 MG/DL (0.2-1.0) Aspartate Amino Transf (AST/SGOT) 23 U/L (15-37) Alanine Aminotransferase (ALT/SGPT) 25 U/L (12-78) Alkaline Phosphatase 96 U/L (46-116) C-Reactive Protein, Quantitative 13.4 mg/dL (0.00-0.90) H Total Protein 6.6 G/DL (6.4-8.2) Albumin 1.7 G/DL (3.4-5.0) L Globulin 4.9 g/dL Albumin/Globulin Ratio 0.3 (1.0-2.7) L Vancomycin Level Trough 6.6 ug/mL (5.0-12.0) Height (Feet): 5 Height (Inches): 6.00 Weight (Pounds): 90 Medications Current Medications Medications (Trade) Dose Ordered Sig/Kina Route PRN Reason Start Time Stop Time Status Last Admin Dose Admin Acetaminophen (Tylenol) 650 mg Q4H PRN ORAL fever 12/09/17 16:00 01/06/18 19:59 UNV Albuterol/ Ipratropium (Albuterol/ Ipratropium) 3 ml EVERY 4 HOURS PRN HHN Shortness of Breath 12/09/17 13:00 12/12/17 19:59 UNV Dextrose (Dextrose 50%) STAT PRN IV Hypoglycemia 12/09/17 20:00 01/06/18 19:59 UNV Heparin Sodium (Porcine) (Heparin 5000 units/ml) 5,000 units EVERY 12 HOURS SUBQ 12/09/17 21:00 01/06/18 20:59 UNV Morphine Sulfate (Morphine Sulfate) 2 mg EVERY 4 HOURS PRN IVP Moderate Pain (Pain Scale 4-6) 12/09/17 13:00 12/14/17 19:59 UNV Nitroglycerin (Ntg) 0.4 mg Q5MINS PRN SL Prn Chest Pain 12/09/17 12:45 01/06/18 19:59 UNV Ondansetron HCl (Zofran) 4 mg Q6H PRN IVP Nausea & Vomiting 12/09/17 14:00 01/06/18 19:59 UNV Polyethylene Glycol (Miralax) 17 gm DAILYPRN PRN ORAL Constipation 12/09/17 20:00 01/06/18 19:59 UNV Sodium Chloride 500 ml @ 30 mls/hr ONCE ONCE IV 12/10/17 12:00 12/11/17 04:39 UNV Temazepam (Restoril) 15 mg HSPRN PRN ORAL Insomnia 12/09/17 20:00 12/14/17 19:59 UNV Assessment/Plan Assessment/Plan (1) Intractable Abdominal pain (2) Metastatic Krukenberg tumor (3) Gastric cancer Seen dictated. ROMA VLAIENTE Dec 09, 2017 13:00
--- NOTE | 2017-12-09 13:35 | General Surgery Progress Note ---
General Surgery-Progress Note Subjective Symptoms: improved Additional Comments no acute events. mild improvement. states that stomach pain improved. still has abdominal pain. still with nausea but no emesis. no fever or chills. tolerating only minimal diet as she states she is not hungry. no flatus or BM yet. drain with serous output Objective Last 24 Hour Vital Signs Date Time Temp Pulse Resp B/P (MAP) Pulse Ox O2 Delivery O2 Flow Rate FiO2 12/09/17 12:00 96.8 103 18 104/70 97 96.8 12/09/17 08:00 92 12/09/17 08:00 96.8 108 18 97/70 97 96.8 12/09/17 04:00 98.1 99 18 97/75 99 Room Air 98.1 12/09/17 04:00 92 12/09/17 00:00 96.6 95 20 108/69 100 Room Air 96.6 12/09/17 00:00 105 12/08/17 20:00 103 12/08/17 20:00 98.2 99 18 102/69 98 Room Air 98.2 12/08/17 16:00 96 12/08/17 16:00 97.9 100 18 113/75 100 Room Air 97.9 I&O Intake and Output 12/08/17 12/09/17 19:00 07:00 Intake Total 825 ml 270 ml Output Total 30 ml 240 ml Balance 795 ml 30 ml Intake Oral 475 ml IV Total 350 ml 270 ml Output Drainage Total 30 ml 240 ml # Voids 4 1 # Bowel Movements 1 Drains: jessica Cardiovascular: RSR Respiratory: clear Abdomen: soft, distended, tenderness Extremities: other - severe wasting Laboratory Tests Test 12/08/17 17:30 12/09/17 09:15 Urine Color Yellow Urine Appearance Clear Urine pH 6 (4.5-8.0) Urine Specific [place] 1.015 (1.005-1.035) Urine Protein 1+ (NEGATIVE) H Urine Glucose (UA) Negative (NEGATIVE) Urine Ketones 2+ (NEGATIVE) H Urine Occult Blood Negative (NEGATIVE) Urine Nitrite Negative (NEGATIVE) Urine Bilirubin Negative (NEGATIVE) Urine Urobilinogen Normal MG/DL (0.0-1.0) Urine Leukocyte Esterase 1+ (NEGATIVE) H Urine RBC 0-2 /HPF (0 - 2) Urine WBC 2-4 /HPF (0 - 2) Urine Squamous Epithelial Cells Few /LPF (NONE/OCC) Urine Bacteria Few /HPF (NONE) Urine Osmolality 616 mOsm/kg (429-449) H Urine Random Sodium < 10 mmol/L (20-110) L White Blood Count 4.5 K/UL (4.8-10.8) L Red Blood Count 4.42 M/UL (4.20-5.40) Hemoglobin 13.3 G/DL (12.0-16.0) Hematocrit 39.7 % (37.0-47.0) Mean Corpuscular Volume 90 FL (80-99) Mean Corpuscular Hemoglobin 30.1 PG (27.0-31.0) Mean Corpuscular Hemoglobin Concent 33.5 G/DL (32.0-36.0) Red Cell Distribution Width 12.8 % (11.6-14.8) Platelet Count 364 K/UL (150-450) Mean Platelet Volume 5.9 FL (6.5-10.1) L Neutrophils (%) (Auto) 70.6 % (45.0-75.0) Lymphocytes (%) (Auto) 16.8 % (20.0-45.0) L Monocytes (%) (Auto) 11.4 % (1.0-10.0) H Eosinophils (%) (Auto) 0.0 % (0.0-3.0) Basophils (%) (Auto) 1.1 % (0.0-2.0) Prothrombin Time 9.4 SEC (9.30-11.50) Prothromb Time International Ratio 0.9 (0.9-1.1) Activated Partial Thromboplast Time 27 SEC (23-33) Sodium Level 128 MMOL/L (136-145) L Potassium Level 4.9 MMOL/L (3.5-5.1) Chloride Level 94 MMOL/L (98-107) L Carbon Dioxide Level 25 MMOL/L (21-32) Anion Gap 9 mmol/L (5-15) Blood Urea Nitrogen 20 mg/dL (7-18) H Creatinine 1.0 MG/DL (0.55-1.30) Estimat Glomerular Filtration Rate > 60 mL/min (>60) Glucose Level 97 MG/DL (74-106) Calcium Level 9.2 MG/DL (8.5-10.1) Phosphorus Level 4.4 MG/DL (2.5-4.9) Magnesium Level 2.0 MG/DL (1.8-2.4) Total Bilirubin 0.5 MG/DL (0.2-1.0) Aspartate Amino Transf (AST/SGOT) 23 U/L (15-37) Alanine Aminotransferase (ALT/SGPT) 25 U/L (12-78) Alkaline Phosphatase 96 U/L (46-116) C-Reactive Protein, Quantitative 13.4 mg/dL (0.00-0.90) H Total Protein 6.6 G/DL (6.4-8.2) Albumin 1.7 G/DL (3.4-5.0) L Globulin 4.9 g/dL Albumin/Globulin Ratio 0.3 (1.0-2.7) L Vancomycin Level Trough 6.6 ug/mL (5.0-12.0) Plan Problems: (1) Metastatic cancer Assessment & Plan: 37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 Has significantly declined since last discharge. Returned dehydrated, malnutrition, wasting, pain. still with pain, weakness, fatigue, loss of appetite. CT reviewed follow up X ray demonstrated contrast in pelvis and was read as in bladder?!? unsure if this is a bowel loop in pelvis with contrast in it or if truly contrast is in bladder. if oral contrast is now in the bladder that would mean she has developed a colo or entero vesical fistula. -repeat KUB tomorrow to evaluate contrast. -she was severely dehydrated and may be very constipated. given enema today -ambulate and oob -IV fluids -resuscitation -diet as tolerated. Torrey Burton Dec 09, 2017 13:35
[2017-12-09] MEDS ORDERED: Miralax 17gm pkt ORAL PRN (14:00)
--- NOTE | 2017-12-09 15:31 | Nephrology Progress Note ---
Assessment/Plan Problem List: (1) Hyponatremia (2) Metastatic cancer (3) Protein-calorie malnutrition, severe Assessment Low Na likely depletional , Casey low (1) Intractable nausea and vomiting (2) Metastatic cancer (3) Protein-calorie malnutrition, severe (4) Gastric cancer (5) Episode of generalized weakness Plan 3% saline monitor lytes urine studies per orders Subjective ROS Limited/Unobtainable: No Constitutional: Reports: malaise Objective Objective Last 24 Hour Vital Signs Date Time Temp Pulse Resp B/P (MAP) Pulse Ox O2 Delivery O2 Flow Rate FiO2 12/09/17 12:00 96.8 103 18 104/70 97 96.8 12/09/17 08:00 92 12/09/17 08:00 96.8 108 18 97/70 97 96.8 12/09/17 04:00 98.1 99 18 97/75 99 Room Air 98.1 12/09/17 04:00 92 12/09/17 00:00 96.6 95 20 108/69 100 Room Air 96.6 12/09/17 00:00 105 12/08/17 20:00 103 12/08/17 20:00 98.2 99 18 102/69 98 Room Air 98.2 12/08/17 16:00 96 12/08/17 16:00 97.9 100 18 113/75 100 Room Air 97.9 Intake and Output 12/08/17 12/09/17 19:00 07:00 Intake Total 825 ml 270 ml Output Total 30 ml 240 ml Balance 795 ml 30 ml Intake Oral 475 ml IV Total 350 ml 270 ml Output Drainage Total 30 ml 240 ml # Voids 4 1 # Bowel Movements 1 Laboratory Tests 12/08/17 17:30: Urine Color Yellow, Urine Appearance Clear, Urine pH 6, Urine Specific [place] 1.015, Urine Protein 1+H, Urine Glucose (UA) Negative, Urine Ketones 2+H, Urine Occult Blood Negative, Urine Nitrite Negative, Urine Bilirubin Negative, Urine Urobilinogen Normal, Urine Leukocyte Esterase 1+H, Urine RBC 0-2, Urine WBC 2-4 , Urine Squamous Epithelial Cells Few, Urine Bacteria Few, Urine Osmolality 616H , Urine Random Sodium < 10L 12/09/17 09:15: White Blood Count 4.5L, Red Blood Count 4.42, Hemoglobin 13.3, Hematocrit 39.7, Mean Corpuscular Volume 90, Mean Corpuscular Hemoglobin 30.1, Mean Corpuscular Hemoglobin Concent 33.5, Red Cell Distribution Width 12.8, Platelet Count 364, Mean Platelet Volume 5.9L, Neutrophils (%) (Auto) 70.6, Lymphocytes (%) (Auto) 16.8L, Monocytes (%) (Auto) 11.4H, Eosinophils (%) (Auto) 0.0, Basophils (%) ( Auto) 1.1, Prothrombin Time 9.4, Prothromb Time International Ratio 0.9, Activated Partial Thromboplast Time 27, Sodium Level 128L, Potassium Level 4.9, Chloride Level 94L, Carbon Dioxide Level 25, Anion Gap 9, Blood Urea Nitrogen 20H, Creatinine 1.0, Estimat Glomerular Filtration Rate > 60, Glucose Level 97, Calcium Level 9.2, Phosphorus Level 4.4, Magnesium Level 2.0, Total Bilirubin 0.5, Aspartate Amino Transf (AST/SGOT) 23, Alanine Aminotransferase (ALT/SGPT) 25, Alkaline Phosphatase 96, C-Reactive Protein, Quantitative 13.4H, Total Protein 6.6, Albumin 1.7L, Globulin 4.9, Albumin/Globulin Ratio 0.3L, Vancomycin Level Trough 6.6 Height (Feet): 5 Height (Inches): 6.00 Weight (Pounds): 90 General Appearance: no apparent distress Cardiovascular: tachycardia CARLOS MARLOW Dec 09, 2017 15:31
[2017-12-09 16:00] VITALS: BP 102/71
--- NOTE | 2017-12-09 16:30 | Cardiology Report ---
APPROVED REPORT EKG Measurement Heart [id number] Sinus tachycardia Otherwise normal ECG
[2017-12-09 20:00] VITALS: BP 110/75
--- NOTE | 2017-12-09 20:15 | Consultation ---
DATE OF CONSULTATION: 12/09/2017 PAIN MANAGEMENT CONSULTATION REFERRING PHYSICIAN: Jolene Arellano M.D. CONSULTING PHYSICIAN: Kris Vela M.D. PHYSICIAN HYDRAULIC MECHANIC: Janie Castorena CHIEF COMPLAINT: Abdominal pain. HISTORY OF PRESENT ILLNESS: This is a 37-year-old female, who is being seen on the medical/surgical floor of [facility] for initial comprehensive pain management consultation. The patient was admitted under the care of Dr. Arellano complaining of severe abdominal pain with generalized weakness, nausea, and vomiting. She has been seen by surgeon at this time. She is severely cachectic, weak, and has failure to thrive. She was brought from home to the emergency room and on CT scan found to have gastric perforation and significant amount of intraabdominal free air and fluid and large solid right ovary. 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 At this time, the patient is in bed, in no signs of distress, however, she is complaining of abdominal pain describing the pain as sharp, stabbing, burning pain increased with eating, causing her to have nausea and vomiting. She was started on morphine 2 mg IV every four hours as needed for moderate pain, which the patient reports has reduced her pain from 8/10 to 0/10. She has taken four doses in the last 24 hours, comfortable at this time, and in no acute distress. PAST MEDICAL HISTORY: Metastatic Krukenberg tumor. PAST SURGICAL HISTORY: Exploratory laparotomy with gastric perforation, perforated Krukenberg tumor, metastatic peritoneal implants, and metastasis to the ovaries. MEDICATIONS: Hoffman, Dexilant, Zofran, Compazine, and Ultram. ALLERGIES: Lactulose. SOCIAL HISTORY: Denies smoking tobacco, drinking alcohol, or drug abuse. REVIEW OF SYSTEMS: Denies rash, fever, chills, sweating, dizziness, drowsiness, blurred vision, sore throat, or change in hearing. No diarrhea or blood in the stool or urine. No bowel or bladder incontinence. No dysuria. She is complaining of severe abdominal pain with nausea, vomiting, generalized weakness, and inability to eat. PHYSICAL EXAMINATION: GENERAL: Alert, awake, and oriented. VITAL SIGNS: Blood pressure 104/70, heart rate is 103, oxygen saturation is 97%, respirations 18, and temperature is 96.8 degrees Fahrenheit. HEENT: PERRLA. NECK: Range of motion is decreased due to the patient's pain and condition. Tenderness to paraspinal muscles with adenopathy noted. LUNGS: Decreased breath sounds bilaterally. HEART: Regular. ABDOMEN: Tenderness to palpation. BACK: Range of motion is decreased in flexion and extension. EXTREMITIES: Upper and lower extremity range of motion is decreased with severe muscle wasting and cachexia seen. ASSESSMENT AND PLAN: This is a 37-year-old female with intractable abdominal pain, metastatic Krukenberg tumor, and gastric cancer. The patient will be continued on morphine as needed for pain. The patient was discussed with Dr. Vela and Dr. Vela concurred. Thank you very much for the courtesy of this consultation. Kris Vela M.D. JIE Castorena DR: Ar JOB#: [id number] CC:
[2017-12-09] MEDS: Trimethobenzamide 100mg/ml 2ml vial IM PRN (21:41)
[2017-12-09] MEDS ORDERED: Morphine Sulfate 2mg/ml Inj IVP ONE (21:45)
[2017-12-10] VITALS: BP 107/76
[2017-12-10] MEDS: Morphine Sulfate 4mg/ml Inj IVP PRN ×3 (00:47→10:28)
--- NOTE | 2017-12-10 02:00 | Consultation ---
DATE OF CONSULTATION: 12/08/2017 NOTE: POOR AUDIO INFECTIOUS DISEASE CONSULTATION CONSULTING PHYSICIAN: Jerman Valencia M.D. REFERRING PHYSICIAN: Jolene Arellano M.D. REASON FOR CONSULTATION: Evaluation of the patient for possible and sepsis. HISTORY OF PRESENT ILLNESS: The patient is a 37-year-old unfortunate female with a recent history of abdominal surgery over a month ago for perforated gastric ulcer. The patient underwent exploratory laparotomy and Billroth II. Subsequently, the patient was found to have a large ovarian mass and blood cultures showed stage IV gastric cancer with mets to ovaries, Krukenberg tumor. The patient during hospitalization received antibiotics for peritonitis and perforated gastric ulcer. Now, the patient comes to the hospital with chief complaint of abdominal pain associated with nausea and vomiting. However, the patient never had chills and fever. Infectious Disease consultation has been requested for further evaluation of the patient and antibiotic management. PAST MEDICAL HISTORY: 1. History of perforated gastric ulcer, status post exploratory laparotomy. 2. History of recent peritonitis. 3. 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 MEDICATIONS: IV vancomycin and cefepime. ALLERGIES: No allergies to antibiotics. FAMILY HISTORY: Not contributing. REVIEW OF SYSTEMS: A 10-point review was done and except what was mentioned has been negative. The patient denies of having cough, shortness of breath, diarrhea, fever, chills, or dysuria. PHYSICAL EXAMINATION: VITAL SIGNS: Temperature 97.9 degrees, blood pressure 113/75, pulse 86, and respiratory rate 18. HEENT: No pale conjunctivae. No icterus. NECK: No lymphadenopathy. CHEST: Clear. HEART: S1 and S2. ABDOMEN: Soft, mildly tender in all four quadrants. The patient has a NICOLE drain and has serous drainage, clear. No pus. NEUROLOGIC: Awake and alert. SKIN: No rash. LABORATORY AND DIAGNOSTIC DATA: White blood cells 4.9, hemoglobin 12, and platelets 299. UA unremarkable. BUN 26 and creatinine 1.1. ALT, AST, and alkaline phosphatase unremarkable. CT of abdomen shows 1. Postsurgical changes. 2. Partial gastrectomy with gastrojejunostomy. 3. ? enteritis versus carcinomatosis. 4. Right posterior pelvic mass. ASSESSMENT: The patient is a 37-year-old unfortunate female with past medical history as mentioned above who was admitted with 1. Nausea and vomiting. 2. Afebrile. 3. white blood cells. 4. CT scan and history any abscess or any infectious process. PLAN: 1. We will discontinue antibiotic treatment. 2. We will follow Hematology/Oncology and Surgical consultants. 3. Overall prognosis is poor. Thank you, Dr. Arellano, for allowing me to participate in the care of this patient. I will follow the patient with you during this hospitalization. Jerman Valencia M.D. DR: IVETTE JOB#: [id number] CC:
[2017-12-10 04:00] VITALS: BP 113/79
[2017-12-10 07:39] LABS: BASOPHILS % (AUTO) 0.8 % (0.0-2.0); HEMATOCRIT 38.2 % (37.0-47.0); HEMOGLOBIN 13.2 G/DL (12.0-16.0); LYMPHOCYTES % (AUTO) 5.5 % (20.0-45.0); MEAN CORPUSCULAR VOLUME 90 FL (80-99); MONOCYTES % (AUTO) 13.2 % (1.0-10.0); NEUTROPHILS % (AUTO) 80.5 % (45.0-75.0); PLATELET COUNT 287 K/UL (150-450); RED BLOOD COUNT 4.26 M/UL (4.20-5.40); RED CELL DISTRIBUTION WIDTH 12.9 % (11.6-14.8); WHITE BLOOD COUNT 6.5 K/UL (4.8-10.8)
[2017-12-10 08:08] LABS: ALANINE AMINOTRANSFERASE 26 U/L (12-78); ALBUMIN 1.6 G/DL (3.4-5.0); ALBUMIN/GLOBULIN RATIO 0.3 (1.0-2.7); ALKALINE PHOSPHATASE 97 U/L (46-116); ANION GAP 12 mmol/L (5-15); ASPARTATE AMINO TRANSFERASE 32 U/L (15-37); BILIRUBIN,TOTAL 0.5 MG/DL (0.2-1.0); BLOOD UREA NITROGEN 28 mg/dL (7-18); CARBON DIOXIDE 20 MMOL/L (21-32); CHLORIDE 99 MMOL/L (98-107); PHOSPHORUS 4.3 MG/DL (2.5-4.9); POTASSIUM 5.2 MMOL/L (3.5-5.1); SODIUM 131 MMOL/L (136-145)
[2017-12-10] MEDS: Trimethobenzamide 100mg/ml 2ml vial IM PRN (10:27)
[2017-12-10] MEDS: Heparin 5000 units/ml inj SUBQ SCH ×2 (10:29→21:51)
--- NOTE | 2017-12-10 10:44 | Nephrology Progress Note ---
Assessment/Plan Problem List: (1) Hyponatremia (2) Metastatic cancer (3) Protein-calorie malnutrition, severe Assessment Low Na likely depletional , Casey low (1) Intractable nausea and vomiting (2) Metastatic cancer (3) Protein-calorie malnutrition, severe (4) Gastric cancer (5) Episode of generalized weakness Plan d5ns 75 hour iv pepcid monitor lytes urine studies per orders Subjective ROS Limited/Unobtainable: No Constitutional: Reports: malaise Objective Objective Last 24 Hour Vital Signs Date Time Temp Pulse Resp B/P (MAP) Pulse Ox O2 Delivery O2 Flow Rate FiO2 12/10/17 08:15 111 20 Room Air 21 12/10/17 05:16 97.1 12/10/17 04:46 97.1 12/10/17 04:00 97.1 134 22 113/79 98 97.1 12/10/17 00:47 97.0 12/10/17 00:00 97.0 69 18 107/76 92 97.0 12/09/17 22:18 97.0 12/09/17 21:48 97.0 12/09/17 20:52 97.0 12/09/17 20:47 120 20 Room Air 12/09/17 20:22 97.0 12/09/17 20:00 97.0 120 20 110/75 93 97.0 12/09/17 16:00 97.0 96 18 102/71 97 97.0 12/09/17 12:00 96.8 103 18 104/70 97 96.8 Intake and Output 12/09/17 12/10/17 19:00 07:00 Intake Total 30 ml 550 ml Output Total 200 ml 850 ml Balance -170 ml -300 ml Intake Oral 250 ml IV Total 30 ml 300 ml Output Emesis 700 ml Drainage Total 200 ml 150 ml Laboratory Tests 12/10/17 06:50: White Blood Count 6.5, Red Blood Count 4.26, Hemoglobin 13.2, Hematocrit 38.2, Mean Corpuscular Volume 90, Mean Corpuscular Hemoglobin 30.9, Mean Corpuscular Hemoglobin Concent 34.4, Red Cell Distribution Width 12.9, Platelet Count 287, Mean Platelet Volume 5.9L, Neutrophils (%) (Auto) 80.5H, Lymphocytes (%) (Auto) 5.5L, Monocytes (%) (Auto) 13.2H, Eosinophils (%) (Auto) 0.0, Basophils (%) ( Auto) 0.8, Sodium Level 131L, Potassium Level 5.2H, Chloride Level 99, Carbon Dioxide Level 20L, Anion Gap 12, Blood Urea Nitrogen 28H, Creatinine 1.0, Estimat Glomerular Filtration Rate > 60, Glucose Level 169H, Uric Acid 8.1H, Calcium Level 9.0, Phosphorus Level 4.3, Magnesium Level 2.0, Total Bilirubin 0.5, Aspartate Amino Transf (AST/SGOT) 32, Alanine Aminotransferase (ALT/SGPT) 26, Alkaline Phosphatase 97, Pro-B-Type Natriuretic Peptide 375H, Total Protein 6.3L, Albumin 1.6L, Globulin 4.7, Albumin/Globulin Ratio 0.3L Height (Feet): 5 Height (Inches): 6.00 Weight (Pounds): 90 General Appearance: no apparent distress, lethargic Objective no change CARLOS MARLOW Dec 10, 2017 10:44
[2017-12-10] MEDS ORDERED: NaCl 3% 500ml 500 ML IV ONE (12:00)
[2017-12-10] MEDS ORDERED: D5NS 1,000 ML IV SCH (12:00)
--- NOTE | 2017-12-10 12:20 | Diagnostic Imaging Report ---
Indication: Abdominal pain Technique: Supine view of the abdomen Comparison: 12/08/2017 Findings: Surgical drain is again demonstrated in the left side of the abdomen. Anastomotic zoie are again demonstrated in the left upper quadrant. Moderate amount of stool is seen in the proximal colon. Bowel gas pattern is otherwise unremarkable. Previously demonstrated extruded bladder contrast is no longer evident. Impression: Increasing colonic stool, may indicate constipation Post surgical changes, as described
--- NOTE | 2017-12-10 12:31 | General Surgery Progress Note ---
General Surgery-Progress Note Subjective Symptoms: worse Additional Comments Susan does not look well. she is unable to keep down anything and has no appetite. Family brings her food from outside to help but she does not have desire to eat. She has persistent nausea and pain. Her pain was acutely worsened last night but episode resolved and she is better now. she falls asleep during visit and overall does not look well. she has been receiving IV hydration and labs have improved but she still remains very cachetic. her boyfriend states that they have been in contact with [facility] and are arranging for transfer? Objective Last 24 Hour Vital Signs Date Time Temp Pulse Resp B/P (MAP) Pulse Ox O2 Delivery O2 Flow Rate FiO2 12/10/17 08:15 111 20 Room Air 21 12/10/17 05:16 97.1 12/10/17 04:46 97.1 12/10/17 04:00 97.1 134 22 113/79 98 97.1 12/10/17 00:47 97.0 12/10/17 00:00 97.0 69 18 107/76 92 97.0 12/09/17 22:18 97.0 12/09/17 21:48 97.0 12/09/17 20:52 97.0 12/09/17 20:47 120 20 Room Air 12/09/17 20:22 97.0 12/09/17 20:00 97.0 120 20 110/75 93 97.0 12/09/17 16:00 97.0 96 18 102/71 97 97.0 I&O Intake and Output 12/09/17 12/10/17 19:00 07:00 Intake Total 30 ml 550 ml Output Total 200 ml 850 ml Balance -170 ml -300 ml Intake Oral 250 ml IV Total 30 ml 300 ml Output Emesis 700 ml Drainage Total 200 ml 150 ml Drains: jessica - with serous output Cardiovascular: RSR Abdomen: soft, other - firm, possible mass like feeling, drain with serous output, midline wound well healed, minimal tenderness on palpation Extremities: other - wasting Laboratory Tests Test 12/10/17 06:50 White Blood Count 6.5 K/UL (4.8-10.8) Red Blood Count 4.26 M/UL (4.20-5.40) Hemoglobin 13.2 G/DL (12.0-16.0) Hematocrit 38.2 % (37.0-47.0) Mean Corpuscular Volume 90 FL (80-99) Mean Corpuscular Hemoglobin 30.9 PG (27.0-31.0) Mean Corpuscular Hemoglobin Concent 34.4 G/DL (32.0-36.0) Red Cell Distribution Width 12.9 % (11.6-14.8) Platelet Count 287 K/UL (150-450) Mean Platelet Volume 5.9 FL (6.5-10.1) L Neutrophils (%) (Auto) 80.5 % (45.0-75.0) H Lymphocytes (%) (Auto) 5.5 % (20.0-45.0) L Monocytes (%) (Auto) 13.2 % (1.0-10.0) H Eosinophils (%) (Auto) 0.0 % (0.0-3.0) Basophils (%) (Auto) 0.8 % (0.0-2.0) Sodium Level 131 MMOL/L (136-145) L Potassium Level 5.2 MMOL/L (3.5-5.1) H Chloride Level 99 MMOL/L (98-107) Carbon Dioxide Level 20 MMOL/L (21-32) L Anion Gap 12 mmol/L (5-15) Blood Urea Nitrogen 28 mg/dL (7-18) H Creatinine 1.0 MG/DL (0.55-1.30) Estimat Glomerular Filtration Rate > 60 mL/min (>60) Glucose Level 169 MG/DL (74-106) H Uric Acid 8.1 MG/DL (2.6-7.2) H Calcium Level 9.0 MG/DL (8.5-10.1) Phosphorus Level 4.3 MG/DL (2.5-4.9) Magnesium Level 2.0 MG/DL (1.8-2.4) Total Bilirubin 0.5 MG/DL (0.2-1.0) Aspartate Amino Transf (AST/SGOT) 32 U/L (15-37) Alanine Aminotransferase (ALT/SGPT) 26 U/L (12-78) Alkaline Phosphatase 97 U/L (46-116) Pro-B-Type Natriuretic Peptide 375 pg/mL (0-125) H Total Protein 6.3 G/DL (6.4-8.2) L Albumin 1.6 G/DL (3.4-5.0) L Globulin 4.7 g/dL Albumin/Globulin Ratio 0.3 (1.0-2.7) L Plan Problems: (1) Metastatic cancer Assessment & Plan: 37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 Has significantly declined since last discharge. Returned dehydrated, malnutrition, wasting, pain. still with pain, weakness, fatigue, loss of appetite. CT reviewed follow up X ray demonstrated contrast in pelvis and was read as in bladder which has since resolved. likely IV contrast washout into bladder in severely dehydrated patient -she was severely dehydrated and may be very constipated. given enema today -ambulate and oob -IV fluids -resuscitation -diet as tolerated. Torrey Burton Dec 10, 2017 12:31
[2017-12-10] MEDS ORDERED: Fleet's Enema 133ml RECTAL ONE (12:45)
--- NOTE | 2017-12-10 13:34 | GI Initial Consult Note ---
History of Present Illness General Date patient seen: Dec 10, 2017 Time patient seen: 13:20 Reason for Hospitalization: Generalized Weakness Referring physician: PENNY FLOWERS Reason for Consultation: SEVERE MALNUTRITION Present Illness HPI Patient is a 37-year-old female presented after increased epigastric pain gradual onset associated with vomiting. Patient had patient noted to have increased abdominal pain after recent surgery. She had been noted to have a drain placed. Patient prior history of metastatic stomach cancer Krukenberg tumor. She denied diarrhea. Patient markedly diminished appetite. She denied any fever. GI consulted for severe malnutrition. ROS limited, patient is extremely fatigue and responses vaguely to any questions. Boyfriend at bedside, patient noted to have rapid decline in appetite and PO intake. Labs reviewed showes electrolyte imbalance. KUB reviewed noted with colonic stool. No known history of endoscopy / colonoscopy. Home Meds Reported Medications Docusate Sodium (Docusate Sodium) 50 Mg/5 Ml Liquid, 100 MG GT TWICE A DAY, EA 12/08/17 Ferrous Sulfate (SLOW RELEASE IRON) 142 Mg Tablet.er, 142 MG PO, TAB 12/08/17 Dexlansoprazole (Dexilant) 60 Mg Cap..bp, 60 MG ORAL DAILY, CAP 12/08/17 Tramadol Hcl* (ULTRAM*) 50 Mg Tablet, 50 MG ORAL Q6H Y for For Pain, #30 TAB 0 Refills 12/08/17 Docusate Sodium (STOOL SOFTENER) 100 Mg Capsule, 100 MG PO, CAP 12/08/17 Ondansetron Hcl* (ZOFRAN*) 8 Mg Tablet, 8 MG ORAL Q6H Y for Nausea & Vomiting, # 4 TAB 0 Refills 12/08/17 Prochlorperazine (COMPAZINE*) 10 Mg Tablet, 10 MG ORAL Q6H Y for Nausea & Vomiting, TAB 12/08/17 Hydrocodone Bit/Acetaminophen 5-325* (NORCO 5-325 TABLET*) 1 Each Tablet, 1 TAB ORAL Q6HR Y for For Pain, #30 TAB 11/21/17 Discontinued Reported Medications Omeprazole (OMEPRAZOLE) 20 Mg Capsule., 20 MG ORAL DAILY, #30 CAP 11/21/17 Docusate Sodium* (COLACE*) 100 Mg Capsule, 100 MG ORAL TWICE A DAY, #60 CAP 11/21/17 Med list reviewed/reconciled: Yes Allergies: Coded Allergies: LACTOSE (Verified Allergy, Unknown, 12/07/17) LACTOSE-REDUCED FOOD (Verified Allergy, Unknown, vomiting, 12/07/17) NUTRITIONAL SUPPLEMENT,SPECIAL FORMULAS (Verified Allergy, Unknown, vomiting, 12/07/17) Patient History Limited by: medical condition History Provided By: Medical Record [facility] Narrative 1. History of perforated gastric ulcer, status post exploratory laparotomy. 2. History of recent peritonitis. 3. 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 Social History: Denies: smoking, alcohol use, drug use, other Review of Systems All Other Systems: limited Physical Exam Vital Signs Date Time Temp Pulse Resp B/P (MAP) Pulse Ox O2 Delivery O2 Flow Rate FiO2 12/07/17 17:03 98.4 118 20 99/69 96 98.4 12/07/17 19:15 Room Air 12/10/17 08:15 21 Sp02 EP Interpretation: reviewed Labs Laboratory Tests Test 12/10/17 06:50 White Blood Count 6.5 K/UL (4.8-10.8) Red Blood Count 4.26 M/UL (4.20-5.40) Hemoglobin 13.2 G/DL (12.0-16.0) Hematocrit 38.2 % (37.0-47.0) Mean Corpuscular Volume 90 FL (80-99) Mean Corpuscular Hemoglobin 30.9 PG (27.0-31.0) Mean Corpuscular Hemoglobin Concent 34.4 G/DL (32.0-36.0) Red Cell Distribution Width 12.9 % (11.6-14.8) Platelet Count 287 K/UL (150-450) Mean Platelet Volume 5.9 FL (6.5-10.1) L Neutrophils (%) (Auto) 80.5 % (45.0-75.0) H Lymphocytes (%) (Auto) 5.5 % (20.0-45.0) L Monocytes (%) (Auto) 13.2 % (1.0-10.0) H Eosinophils (%) (Auto) 0.0 % (0.0-3.0) Basophils (%) (Auto) 0.8 % (0.0-2.0) Sodium Level 131 MMOL/L (136-145) L Potassium Level 5.2 MMOL/L (3.5-5.1) H Chloride Level 99 MMOL/L (98-107) Carbon Dioxide Level 20 MMOL/L (21-32) L Anion Gap 12 mmol/L (5-15) Blood Urea Nitrogen 28 mg/dL (7-18) H Creatinine 1.0 MG/DL (0.55-1.30) Estimat Glomerular Filtration Rate > 60 mL/min (>60) Glucose Level 169 MG/DL (74-106) H Uric Acid 8.1 MG/DL (2.6-7.2) H Calcium Level 9.0 MG/DL (8.5-10.1) Phosphorus Level 4.3 MG/DL (2.5-4.9) Magnesium Level 2.0 MG/DL (1.8-2.4) Total Bilirubin 0.5 MG/DL (0.2-1.0) Aspartate Amino Transf (AST/SGOT) 32 U/L (15-37) Alanine Aminotransferase (ALT/SGPT) 26 U/L (12-78) Alkaline Phosphatase 97 U/L (46-116) Pro-B-Type Natriuretic Peptide 375 pg/mL (0-125) H Total Protein 6.3 G/DL (6.4-8.2) L Albumin 1.6 G/DL (3.4-5.0) L Globulin 4.7 g/dL Albumin/Globulin Ratio 0.3 (1.0-2.7) L General Appearance: no apparent distress, thin Head: normocephalic EENT: normal ENT inspection Neck: supple Respiratory: normal breath sounds Gastrointestinal: soft Rectal: deferred Neurologic: alert Skin: pallor Lymphatic: normal inspection, no adenopathy Current Medications Current Medications Medications (Trade) Dose Ordered Sig/Kina Route PRN Reason Start Time Stop Time Status Last Admin Dose Admin Acetaminophen (Tylenol) 650 mg Q4H PRN ORAL fever 12/09/17 13:00 01/06/18 12:59 Albuterol/ Ipratropium (Albuterol/ Ipratropium) 3 ml Q4H PRN HHN Shortness of Breath 12/09/17 13:00 12/14/17 12:59 Dextrose (Dextrose 50%) STAT PRN IV Hypoglycemia 12/09/17 13:00 01/06/18 12:59 Dextrose/Sodium Chloride 1,000 ml @ 75 mls/hr [id number] IV 12/10/17 12:00 01/09/18 11:59 Famotidine (Pepcid I.v.) 20 mg Q12HR IVP 12/10/17 21:00 01/09/18 20:59 Heparin Sodium (Porcine) (Heparin 5000 units/ml) 5,000 units EVERY 12 HOURS SUBQ 12/09/17 21:00 01/06/18 20:59 12/10/17 10:29 Morphine Sulfate (Morphine Sulfate) 4 mg Q4H PRN IVP mod-sev pain (4-10) 12/09/17 21:30 12/16/17 21:29 12/10/17 10:28 Nitroglycerin (Ntg) 0.4 mg Q5MINS PRN SL Prn Chest Pain 12/09/17 12:45 01/06/18 19:59 Ondansetron HCl (Zofran) 4 mg Q6H IVP 12/10/17 12:45 01/09/18 12:44 Ondansetron HCl (Zofran) 4 mg Q6H PRN IVP Nausea & Vomiting 12/09/17 14:00 01/06/18 19:59 12/09/17 20:18 Polyethylene Glycol (Miralax) 17 gm DAILYPRN PRN ORAL Constipation 12/09/17 14:00 01/06/18 13:59 Promethazine HCl (Phenergan) 25 mg Q4H PRN IV Nausea & Vomiting 12/09/17 21:30 01/08/18 21:29 12/10/17 04:44 Sodium Chloride 500 ml @ 30 mls/hr ONCE ONCE IV 12/10/17 12:00 12/11/17 04:39 Temazepam (Restoril) 15 mg HSPRN PRN ORAL Insomnia 12/09/17 14:00 12/14/17 13:59 Trimethobenzamide HCl (Tigan) 200 mg Q8H PRN IM Nausea & Vomiting 12/09/17 21:30 01/08/18 21:29 12/10/17 10:27 GI: Plan Problems: (1) Protein-calorie malnutrition, severe (2) Intractable nausea and vomiting (3) Metastatic cancer (4) Abdominal pain Plan fu surgical/onc recs push PO cont zofran atc, tigan/compazine prn electrolyte correction PO/IV hydration H2B fu labs poor prognosis Discussed with Dr. Santoro. Thank you for this patient referral, we will follow. Priscila Diggs N.P. Dec 10, 2017 13:34
--- NOTE | 2017-12-10 14:18 | Infectious Diseases Prog Note ---
Assessment/Plan Assessment/Plan ASSESSMENT: - Nausea and vomiting/Abd pain.- no obvious infectious process- possiible 2ry to malignancy, ?progression Afebrile/normal white blood cells. -CT abd/p: Postsurgical changes.Partial gastrectomy with gastrojejunostomy. ? enteritis versus carcinomatosis. Right posterior pelvic mass. -History of perforated gastric ulcer, status post exploratory laparotomy. - History of recent peritonitis. 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 PLAN: 1. Continue to monitor off abx -12/08 SP IV Vanco and Cefepime #2 2. We will follow Hematology/Oncology and Surgical consultants. 3. Overall prognosis is poor. Thank you, Dr. Arellano, for allowing me to participate in the care of this patient. I will follow the patient with you during this hospitalization. Subjective Allergies: Coded Allergies: LACTOSE (Verified Allergy, Unknown, 12/07/17) LACTOSE-REDUCED FOOD (Verified Allergy, Unknown, vomiting, 12/07/17) NUTRITIONAL SUPPLEMENT,SPECIAL FORMULAS (Verified Allergy, Unknown, vomiting, 12/07/17) Subjective afebrile no leukocytosis cx NTD poor apetitie Objective Vital Signs Last 24 Hour Vital Signs Date Time Temp Pulse Resp B/P (MAP) Pulse Ox O2 Delivery O2 Flow Rate FiO2 12/10/17 08:15 111 20 Room Air 21 12/10/17 05:16 97.1 12/10/17 04:46 97.1 12/10/17 04:00 97.1 134 22 113/79 98 97.1 12/10/17 00:47 97.0 12/10/17 00:00 97.0 69 18 107/76 92 97.0 12/09/17 22:18 97.0 12/09/17 21:48 97.0 12/09/17 20:52 97.0 12/09/17 20:47 120 20 Room Air 12/09/17 20:22 97.0 12/09/17 20:00 97.0 120 20 110/75 93 97.0 12/09/17 16:00 97.0 96 18 102/71 97 97.0 Height (Feet): 5 Height (Inches): 6.00 Weight (Pounds): 90 Objective HEENT: No pale conjunctivae. No icterus. NECK: No lymphadenopathy. CHEST: Clear. HEART: S1 and S2. ABDOMEN: Soft, mildly tender in all four quadrants. The patient has a NICOLE drain and has serous drainage, clear. No pus. NEUROLOGIC: Awake and alert. SKIN: No rash. Microbiology Date/Time Source Procedure Growth Status 12/07/17 22:00 Nasal Nares MRSA Culture - Final NO METHICILLIN RESISTANT STAPH AUREUS... Complete 12/07/17 22:00 Rectum VRE Culture - Final Enterococcus Faecium - Vre Complete Laboratory Tests Test 12/10/17 06:50 White Blood Count 6.5 K/UL (4.8-10.8) Red Blood Count 4.26 M/UL (4.20-5.40) Hemoglobin 13.2 G/DL (12.0-16.0) Hematocrit 38.2 % (37.0-47.0) Mean Corpuscular Volume 90 FL (80-99) Mean Corpuscular Hemoglobin 30.9 PG (27.0-31.0) Mean Corpuscular Hemoglobin Concent 34.4 G/DL (32.0-36.0) Red Cell Distribution Width 12.9 % (11.6-14.8) Platelet Count 287 K/UL (150-450) Mean Platelet Volume 5.9 FL (6.5-10.1) L Neutrophils (%) (Auto) 80.5 % (45.0-75.0) H Lymphocytes (%) (Auto) 5.5 % (20.0-45.0) L Monocytes (%) (Auto) 13.2 % (1.0-10.0) H Eosinophils (%) (Auto) 0.0 % (0.0-3.0) Basophils (%) (Auto) 0.8 % (0.0-2.0) Sodium Level 131 MMOL/L (136-145) L Potassium Level 5.2 MMOL/L (3.5-5.1) H Chloride Level 99 MMOL/L (98-107) Carbon Dioxide Level 20 MMOL/L (21-32) L Anion Gap 12 mmol/L (5-15) Blood Urea Nitrogen 28 mg/dL (7-18) H Creatinine 1.0 MG/DL (0.55-1.30) Estimat Glomerular Filtration Rate > 60 mL/min (>60) Glucose Level 169 MG/DL (74-106) H Uric Acid 8.1 MG/DL (2.6-7.2) H Calcium Level 9.0 MG/DL (8.5-10.1) Phosphorus Level 4.3 MG/DL (2.5-4.9) Magnesium Level 2.0 MG/DL (1.8-2.4) Total Bilirubin 0.5 MG/DL (0.2-1.0) Aspartate Amino Transf (AST/SGOT) 32 U/L (15-37) Alanine Aminotransferase (ALT/SGPT) 26 U/L (12-78) Alkaline Phosphatase 97 U/L (46-116) Pro-B-Type Natriuretic Peptide 375 pg/mL (0-125) H Total Protein 6.3 G/DL (6.4-8.2) L Albumin 1.6 G/DL (3.4-5.0) L Globulin 4.7 g/dL Albumin/Globulin Ratio 0.3 (1.0-2.7) L Current Medications Medications (Trade) Dose Ordered Sig/Kina Route PRN Reason Start Time Stop Time Status Last Admin Dose Admin Acetaminophen (Tylenol) 650 mg Q4H PRN ORAL fever 12/09/17 13:00 01/06/18 12:59 Albuterol/ Ipratropium (Albuterol/ Ipratropium) 3 ml Q4H PRN HHN Shortness of Breath 12/09/17 13:00 12/14/17 12:59 Dextrose (Dextrose 50%) STAT PRN IV Hypoglycemia 12/09/17 13:00 01/06/18 12:59 Dextrose/Sodium Chloride 1,000 ml @ 75 mls/hr [id number] IV 12/10/17 12:00 01/09/18 11:59 12/10/17 13:20 Famotidine (Pepcid I.v.) 20 mg Q12HR IVP 12/10/17 21:00 01/09/18 20:59 Heparin Sodium (Porcine) (Heparin 5000 units/ml) 5,000 units EVERY 12 HOURS SUBQ 12/09/17 21:00 01/06/18 20:59 12/10/17 10:29 Morphine Sulfate (Morphine Sulfate) 4 mg Q4H PRN IVP mod-sev pain (4-10) 12/09/17 21:30 12/16/17 21:29 12/10/17 10:28 Nitroglycerin (Ntg) 0.4 mg Q5MINS PRN SL Prn Chest Pain 12/09/17 12:45 01/06/18 19:59 Ondansetron HCl (Zofran) 4 mg Q6H IVP 12/10/17 12:45 01/09/18 12:44 12/10/17 13:21 Ondansetron HCl (Zofran) 4 mg Q6H PRN IVP Nausea & Vomiting 12/09/17 14:00 01/06/18 19:59 12/09/17 20:18 Polyethylene Glycol (Miralax) 17 gm DAILYPRN PRN ORAL Constipation 12/09/17 14:00 01/06/18 13:59 Promethazine HCl (Phenergan) 25 mg Q4H PRN IV Nausea & Vomiting 12/09/17 21:30 01/08/18 21:29 12/10/17 04:44 Sodium Chloride 500 ml @ 30 mls/hr ONCE ONCE IV 12/10/17 12:00 12/11/17 04:39 Temazepam (Restoril) 15 mg HSPRN PRN ORAL Insomnia 12/09/17 14:00 12/14/17 13:59 Trimethobenzamide HCl (Tigan) 200 mg Q8H PRN IM Nausea & Vomiting 12/09/17 21:30 01/08/18 21:29 12/10/17 10:27 Tayler Zambrano M.D. Dec 10, 2017 14:18
--- NOTE | 2017-12-10 14:52 | Pulmonology Progress Note ---
Assessment/Plan Problems: (1) Intractable nausea and vomiting (2) Metastatic cancer (3) Protein-calorie malnutrition, severe (4) Gastric cancer (5) Episode of generalized weakness Assessment/Plan d/w pt's other in the presence of the body friend. Mother know and can see that her daughter is dying. They don't have a place for her to take her. They agreed with DNR, comfort care and Morphine drip. Subjective ROS Limited/Unobtainable: No Interval Events: comfortable Allergies: Coded Allergies: LACTOSE (Verified Allergy, Unknown, 12/07/17) LACTOSE-REDUCED FOOD (Verified Allergy, Unknown, vomiting, 12/07/17) NUTRITIONAL SUPPLEMENT,SPECIAL FORMULAS (Verified Allergy, Unknown, vomiting, 12/07/17) Objective Last 24 Hour Vital Signs Date Time Temp Pulse Resp B/P (MAP) Pulse Ox O2 Delivery O2 Flow Rate FiO2 12/10/17 08:15 111 20 Room Air 21 12/10/17 05:16 97.1 12/10/17 04:46 97.1 12/10/17 04:00 97.1 134 22 113/79 98 97.1 12/10/17 00:47 97.0 12/10/17 00:00 97.0 69 18 107/76 92 97.0 12/09/17 22:18 97.0 12/09/17 21:48 97.0 12/09/17 20:52 97.0 12/09/17 20:47 120 20 Room Air 12/09/17 20:22 97.0 12/09/17 20:00 97.0 120 20 110/75 93 97.0 12/09/17 16:00 97.0 96 18 102/71 97 97.0 Intake and Output 12/09/17 12/10/17 19:00 07:00 Intake Total 30 ml 550 ml Output Total 200 ml 850 ml Balance -170 ml -300 ml Intake Oral 250 ml IV Total 30 ml 300 ml Output Emesis 700 ml Drainage Total 200 ml 150 ml Objective General Appearance: cachectic HEENT: normocephalic, atraumatic, anicteric Respiratory/Chest: normal breath sounds Cardiovascular: normal peripheral pulses, normal rate, regular rhythm Abdomen: tender, NICOLE tube Genitourinary: normal external genitalia Extremities: no cyanosis Skin: no rash, no lesions Microbiology Date/Time Source Procedure Growth Status 3/9/18 22:00 Nasal Nares MRSA Culture - Final NO METHICILLIN RESISTANT STAPH AUREUS... Complete 12/07/17 22:00 Rectum VRE Culture - Final Enterococcus Faecium - Vre Complete Laboratory Tests 12/10/17 06:50: White Blood Count 6.5, Red Blood Count 4.26, Hemoglobin 13.2, Hematocrit 38.2, Mean Corpuscular Volume 90, Mean Corpuscular Hemoglobin 30.9, Mean Corpuscular Hemoglobin Concent 34.4, Red Cell Distribution Width 12.9, Platelet Count 287, Mean Platelet Volume 5.9L, Neutrophils (%) (Auto) 80.5H, Lymphocytes (%) (Auto) 5.5L, Monocytes (%) (Auto) 13.2H, Eosinophils (%) (Auto) 0.0, Basophils (%) ( Auto) 0.8, Sodium Level 131L, Potassium Level 5.2H, Chloride Level 99, Carbon Dioxide Level 20L, Anion Gap 12, Blood Urea Nitrogen 28H, Creatinine 1.0, Estimat Glomerular Filtration Rate > 60, Glucose Level 169H, Uric Acid 8.1H, Calcium Level 9.0, Phosphorus Level 4.3, Magnesium Level 2.0, Total Bilirubin 0.5, Aspartate Amino Transf (AST/SGOT) 32, Alanine Aminotransferase (ALT/SGPT) 26, Alkaline Phosphatase 97, Pro-B-Type Natriuretic Peptide 375H, Total Protein 6.3L, Albumin 1.6L, Globulin 4.7, Albumin/Globulin Ratio 0.3L Current Medications Medications (Trade) Dose Ordered Sig/Kina Route PRN Reason Start Time Stop Time Status Last Admin Dose Admin Acetaminophen (Tylenol) 650 mg Q4H PRN ORAL fever 12/09/17 13:00 01/06/18 12:59 Albuterol/ Ipratropium (Albuterol/ Ipratropium) 3 ml Q4H PRN HHN Shortness of Breath 12/09/17 13:00 12/14/17 12:59 Dextrose (Dextrose 50%) STAT PRN IV Hypoglycemia 12/09/17 13:00 01/06/18 12:59 Dextrose/Sodium Chloride 1,000 ml @ 75 mls/hr [id number] IV 12/10/17 12:00 01/09/18 11:59 12/10/17 13:20 Famotidine (Pepcid I.v.) 20 mg Q12HR IVP 12/10/17 21:00 01/09/18 20:59 Heparin Sodium (Porcine) (Heparin 5000 units/ml) 5,000 units EVERY 12 HOURS SUBQ 12/09/17 21:00 01/06/18 20:59 12/10/17 10:29 Morphine Sulfate (Morphine Sulfate) 4 mg Q4H PRN IVP mod-sev pain (4-10) 12/09/17 21:30 12/16/17 21:29 12/10/17 10:28 Nitroglycerin (Ntg) 0.4 mg Q5MINS PRN SL Prn Chest Pain 12/09/17 12:45 01/06/18 19:59 Ondansetron HCl (Zofran) 4 mg Q6H IVP 12/10/17 12:45 01/09/18 12:44 12/10/17 13:21 Ondansetron HCl (Zofran) 4 mg Q6H PRN IVP Nausea & Vomiting 12/09/17 14:00 01/06/18 19:59 12/09/17 20:18 Polyethylene Glycol (Miralax) 17 gm DAILYPRN PRN ORAL Constipation 12/09/17 14:00 01/06/18 13:59 Promethazine HCl (Phenergan) 25 mg Q4H PRN IV Nausea & Vomiting 12/09/17 21:30 01/08/18 21:29 12/10/17 04:44 Sodium Chloride 500 ml @ 30 mls/hr ONCE ONCE IV 12/10/17 12:00 12/11/17 04:39 Temazepam (Restoril) 15 mg HSPRN PRN ORAL Insomnia 12/09/17 14:00 12/14/17 13:59 Trimethobenzamide HCl (Tigan) 200 mg Q8H PRN IM Nausea & Vomiting 12/09/17 21:30 01/08/18 21:29 12/10/17 10:27 PENNY GOMEZ Dec 10, 2017 14:52
[2017-12-10] MEDS ORDERED: Morphine Sulfate 4mg/ml Inj IVP PRN (15:15)
[2017-12-10] MEDS ORDERED: Rate Change Narcotic Drip MISC PRN (15:15)
[2017-12-10] MEDS ORDERED: PCA Morphine 1mg/ml 30 ML IV PRN ×2 (15:30→18:30)
[2017-12-10 16:00] VITALS: BP 90/66
[2017-12-10] MEDS: Narcotic Shift Volume MISC SCH (19:23)
[2017-12-10 20:00] VITALS: BP 96/65
[2017-12-11] VITALS: BP 80/61
[2017-12-11] MEDS: PCA Morphine 1mg/ml 30 ML IV PRN ×2 (01:00→15:22)
[2017-12-11 04:00] VITALS: BP 91/67
[2017-12-11] MEDS: Narcotic Shift Volume MISC SCH ×2 (07:27→19:00)
[2017-12-11 08:00] VITALS: BP 96/64
[2017-12-11] MEDS: Heparin 5000 units/ml inj SUBQ SCH ×2 (08:24→21:00)
[2017-12-11 08:36] LABS: BASOPHILS % (AUTO) 1.3 % (0.0-2.0); HEMATOCRIT 33.9 % (37.0-47.0); HEMOGLOBIN 11.7 G/DL (12.0-16.0); LYMPHOCYTES % (AUTO) 12.2 % (20.0-45.0); MEAN CORPUSCULAR VOLUME 90 FL (80-99); MONOCYTES % (AUTO) 12.6 % (1.0-10.0); PLATELET COUNT 245 K/UL (150-450); RED BLOOD COUNT 3.78 M/UL (4.20-5.40); RED CELL DISTRIBUTION WIDTH 13.1 % (11.6-14.8); WHITE BLOOD COUNT 6.2 K/UL (4.8-10.8)
--- NOTE | 2017-12-11 08:45 | Consultation ---
DATE OF CONSULTATION: 12/09/2017 NOTE: "POOR AUDIO QUALITY" HEMATOLOGY/ONCOLOGY CONSULTATION CONSULTING PHYSICIAN: Yehuda Quintanilla M.D. REQUESTING PHYSICIAN: Jolene Arellano M.D. REASON FOR CONSULTATION: Evaluation of malignancy of gastric cancer. IDENTIFYING DATA: Dear Dr. Arellano: The patient is a pleasant 37-year-old female, well known to me, at this time presents to the hospital. She has history of recently diagnosed metastatic gastric cancer, worsening abdominal pain for the past several weeks. She initially had a CAT scan which showed gastric perforation, intraabdominal purulent fluid, and metastatic right ovary. She underwent operation, which showed large circumferential distal gastric tumor, large perforation, large metastatic right ovarian tumor. Biopsy was completed. The patient underwent distal gastrectomy. At this time, she presents with decreased p.o. intake. the office, but has not been seen at the oncology clinic and at this time presents with failure to thrive. PAST MEDICAL HISTORY: As noted above, metastatic ovarian cancer, Krukenberg tumor. PAST SURGICAL HISTORY: As noted above, status post laparoscopic gastrectomy. MEDICATIONS: [place], Zofran, prochlorperazine, and tramadol. ALLERGIES: Lactulose and nutritional supplements. REVIEW OF SYSTEMS: CONSTITUTIONAL: Some weakness, fatigue, and malaise noted. SKIN: No rashes, bumps, or itching. HEENT: No headache or vision changes. BREASTS: No lumps, pain, or discharge. PULMONARY: No cough, sputum, or shortness of breath noted. GASTROINTESTINAL: No nausea or vomiting, however, some diarrhea is noted. GENITOURINARY: No dysuria, frequency, or urgency. MUSCULOSKELETAL: No joint swelling, muscle pain, or trauma. PHYSICAL EXAMINATION: VITAL SIGNS: Reviewed. GENERAL: No distress. PULMONARY: Decreased breath sounds. Some crackles at the bases. CARDIOVASCULAR: Regular rate. No S3 or S4. ABDOMEN: EXTREMITIES: No cyanosis, swelling, or edema. LABORATORY AND DIAGNOSTIC DATA: WBC 4.9, hemoglobin 12.2, hematocrit 35, and platelet count 299,000. IMAGING: Abdominal x-ray reviewed from 12/08/2017 shows nonspecific bowel gas pattern with loops. ASSESSMENT AND RECOMMENDATIONS: 1. Metastatic gastric cancer. Further treatment as per primary team. She has been by surgical service. 2. Status post exploratory laparotomy, getting pain medications, at this time presents with abdominal pain Dr. Yehuda Quintanilla and I am unable to proceed with chemotherapy at this time. The patient is unable to and prognosis remains extremely poor. The patient is very guarded. At this time, the patient needs better nutrition prior to initiation of chemotherapy and may be hospice, may be a candidate for supportive care. We would be very conservative in treating with chemotherapy. I have recommended GI to see the patient in regard to potential G-tube, although that may not be the best option given ongoing cancer. 3. Leukopenia, probably related to closely monitor. 4. due to metastatic gastric cancer. 5. Abdominal pain due to gastric cancer. Continue to closely monitor. 6. Malnutrition, wasting, . We will continue to closely monitor with primary team. Try to increase fluids, try to increase and p. 7. Intake. 8. Protein-caloric malnutrition, severe closely monitor. The patient is guarded with poor prognosis. Yehuda Quintanilla M.D. DR: Alayna JOB#: [id number] CC:
[2017-12-11 11:37] LABS: ALANINE AMINOTRANSFERASE 26 U/L (12-78); ALBUMIN 1.5 G/DL (3.4-5.0); ALBUMIN/GLOBULIN RATIO 0.3 (1.0-2.7); ALKALINE PHOSPHATASE 96 U/L (46-116); ANION GAP 13 mmol/L (5-15); ASPARTATE AMINO TRANSFERASE 35 U/L (15-37); BILIRUBIN,TOTAL 0.3 MG/DL (0.2-1.0); BLOOD UREA NITROGEN 53 mg/dL (7-18); CALCIUM 8.7 MG/DL (8.5-10.1); CARBON DIOXIDE 19 MMOL/L (21-32); CHLORIDE 94 MMOL/L (98-107); CREATININE 2.3 MG/DL (0.55-1.30); PHOSPHORUS 6.2 MG/DL (2.5-4.9); POTASSIUM 5.3 MMOL/L (3.5-5.1); SODIUM 126 MMOL/L (136-145)
[2017-12-11 12:00] VITALS: BP 86/56
--- NOTE | 2017-12-11 12:17 | General Progress Note ---
Progress Note Progress Note Surgery: deteriorating. does not look well. more comfortable with morphine. less nausea and emesis today. now tolerating some liquids. having urine output. no BM yet. drain with serous output abdomen with fullness in right side. very unfortunate case. prognosis very poor. she continues to deteriorate daily. family and patient aware of condition and want her to be comfortable. Torrey Burton Dec 11, 2017 12:17
--- NOTE | 2017-12-11 12:53 | General Progress Note ---
Assessment/Plan Status: deteriorating Assessment/Plan 1. Metastatic gastric cancer. Further treatment as per primary team. She has been by surgical service. 2. Status post exploratory laparotomy, getting pain medications, at this time presents with abdominal pain. --> I am unable to proceed with chemotherapy at this time. --> Prognosis remains extremely poor. The patient is very guarded. --> At this time, the patient needs better nutrition prior to initiation of chemotherapy and may be hospice, may be a candidate for supportive care. --> We would be very conservative in treating with chemotherapy. --> I have recommended GI to see the patient in regard to potential G-tube, although that may not be the best option given ongoing cancer. 3. Leukopenia, probably related to cancer, closely monitor. 4. Anemia due to metastatic gastric cancer. 5. Abdominal pain due to gastric cancer. Continue to closely monitor. 6. Malnutrition, wasting. We will continue to closely monitor with primary team. Try to increase fluids. 7. Intake. 8. Protein-caloric malnutrition, closely monitor. The patient is guarded with poor prognosis. Subjective Date patient seen: Dec 10, 2017 Constitutional: Denies: no symptoms, chills, diaphoresis, fever, malaise, weakness, other HEENT: Denies: no symptoms, eye pain, blurred vision, tearing, double vision, ear pain, ear discharge, nose pain, nose congestion, throat pain, throat swelling, mouth pain, mouth swelling, other Cardiovascular: Denies: no symptoms, chest pain, edema, irregular heart rate, lightheadedness, palpitations, syncope, other Respiratory: Denies: no symptoms, cough, orthopnea, shortness of breath, SOB with excertion, SOB at rest, sputum, stridor, wheezing, other Gastrointestinal/Abdominal: Denies: no symptoms, abdomen distended, abdominal pain, black stools, tarry stools, blood in stool, constipated, diarrhea, difficulty swallowing, nausea, poor appetite, poor fluid intake, rectal bleeding , vomiting, other Genitourinary: Denies: no symptoms, burning, discharge, frequency, flank pain, hematuria, incontinence, pain, urgency, other Neurologic/Psychiatric: Denies: no symptoms, anxiety, depressed, emotional problems, headache, numbness, paresthesia, pre-existing deficit, seizure, tingling, tremors, weakness, other Hematologic/Lymphatic: Reports: anemia Allergies: Coded Allergies: LACTOSE (Verified Allergy, Unknown, 12/07/17) LACTOSE-REDUCED FOOD (Verified Allergy, Unknown, vomiting, 12/07/17) NUTRITIONAL SUPPLEMENT,SPECIAL FORMULAS (Verified Allergy, Unknown, vomiting, 12/07/17) Subjective Poor prognosis. Deteriorating. Objective Last 24 Hour Vital Signs Date Time Temp Pulse Resp B/P (MAP) Pulse Ox O2 Delivery O2 Flow Rate FiO2 12/11/17 12:00 97.9 120 18 86/56 95 Room Air 97.9 12/11/17 08:00 128 20 Room Air 21 12/11/17 08:00 97.3 119 18 96/64 97 97.3 12/11/17 04:00 97.0 121 12 91/67 96 97.0 12/11/17 01:00 97.1 12/11/17 00:00 97.1 125 14 80/61 98 97.1 12/10/17 20:00 96.0 136 16 96/65 98 96.0 12/10/17 18:35 108 20 Room Air 21 12/10/17 16:00 95.9 132 16 90/66 89 Room Air 95.9 12/10/17 15:49 97.1 Intake and Output 12/10/17 12/11/17 19:00 07:00 Output Total 150 ml Balance -150 ml Drainage Total 150 ml # Voids 2 Laboratory Tests 12/11/17 07:10: White Blood Count 6.2, Red Blood Count 3.78L, Hemoglobin 11.7L, Hematocrit 33.9L , Mean Corpuscular Volume 90, Mean Corpuscular Hemoglobin 30.9, Mean Corpuscular Hemoglobin Concent 34.5, Red Cell Distribution Width 13.1, Platelet Count 245, Mean Platelet Volume 6.7, Neutrophils (%) (Auto) 74.0, Lymphocytes (% ) (Auto) 12.2L, Monocytes (%) (Auto) 12.6H, Eosinophils (%) (Auto) 0.0, Basophils (%) (Auto) 1.3 12/11/17 10:40: Sodium Level 126L, Potassium Level 5.3H, Chloride Level 94L, Carbon Dioxide Level 19L, Anion Gap 13, Blood Urea Nitrogen 53H, Creatinine 2.3#H, Estimat Glomerular Filtration Rate 23.9, Glucose Level 136H, Uric Acid 9.5H, Calcium Level 8.7, Phosphorus Level 6.2H, Magnesium Level 2.0, Total Bilirubin 0.3, Aspartate Amino Transf (AST/SGOT) 35, Alanine Aminotransferase (ALT/SGPT) 26, Alkaline Phosphatase 96, C-Reactive Protein, Quantitative 35.9H, Total Protein 6.2L, Albumin 1.5L, Globulin 4.7, Albumin/Globulin Ratio 0.3L Height (Feet): 5 Height (Inches): 6.00 Weight (Pounds): 90 Respiratory/Chest: decreased breath sounds Yehuda Quintanilla Dec 11, 2017 12:53
--- NOTE | 2017-12-11 14:01 | General Progress Note ---
Assessment/Plan Assessment/Plan (1) Intractable Abdominal pain (2) Metastatic Krukenberg tumor (3) Gastric cancer Pt will continue on [employer] as per manager clinical applications and family At this time we will sign off from seeing patient. D/w nurse and Dr Vela, Dr. Vela concurred. Subjective Date patient seen: Dec 11, 2017 ROS Limited/Unobtainable: Yes Allergies: Coded Allergies: LACTOSE (Verified Allergy, Unknown, 12/07/17) LACTOSE-REDUCED FOOD (Verified Allergy, Unknown, vomiting, 12/07/17) NUTRITIONAL SUPPLEMENT,SPECIAL FORMULAS (Verified Allergy, Unknown, vomiting, 12/07/17) Subjective Patient was started on [employer] Morphine 3mg continuous rate Q1H as per manager clinical applications and family for comfort care. D/w Dr. Vela who is no agreeable with this order and we will sign off this case at this time. D/w nurse. Objective Last 24 Hour Vital Signs Date Time Temp Pulse Resp B/P (MAP) Pulse Ox O2 Delivery O2 Flow Rate FiO2 12/11/17 12:00 97.9 120 18 86/56 95 Room Air 97.9 12/11/17 08:00 128 20 Room Air 21 12/11/17 08:00 97.3 119 18 96/64 97 97.3 12/11/17 04:00 97.0 121 12 91/67 96 97.0 12/11/17 01:00 97.1 12/11/17 00:00 97.1 125 14 80/61 98 97.1 12/10/17 20:00 96.0 136 16 96/65 98 96.0 12/10/17 18:35 108 20 Room Air 21 12/10/17 16:00 95.9 132 16 90/66 89 Room Air 95.9 12/10/17 15:49 97.1 Intake and Output 12/10/17 12/11/17 19:00 07:00 Output Total 150 ml Balance -150 ml Drainage Total 150 ml # Voids 2 Laboratory Tests 12/11/17 07:10: White Blood Count 6.2, Red Blood Count 3.78L, Hemoglobin 11.7L, Hematocrit 33.9L , Mean Corpuscular Volume 90, Mean Corpuscular Hemoglobin 30.9, Mean Corpuscular Hemoglobin Concent 34.5, Red Cell Distribution Width 13.1, Platelet Count 245, Mean Platelet Volume 6.7, Neutrophils (%) (Auto) 74.0, Lymphocytes (% ) (Auto) 12.2L, Monocytes (%) (Auto) 12.6H, Eosinophils (%) (Auto) 0.0, Basophils (%) (Auto) 1.3 12/11/17 10:40: Sodium Level 126L, Potassium Level 5.3H, Chloride Level 94L, Carbon Dioxide Level 19L, Anion Gap 13, Blood Urea Nitrogen 53H, Creatinine 2.3#H, Estimat Glomerular Filtration Rate 23.9, Glucose Level 136H, Uric Acid 9.5H, Calcium Level 8.7, Phosphorus Level 6.2H, Magnesium Level 2.0, Total Bilirubin 0.3, Aspartate Amino Transf (AST/SGOT) 35, Alanine Aminotransferase (ALT/SGPT) 26, Alkaline Phosphatase 96, C-Reactive Protein, Quantitative 35.9H, Total Protein 6.2L, Albumin 1.5L, Globulin 4.7, Albumin/Globulin Ratio 0.3L Height (Feet): 5 Height (Inches): 6.00 Weight (Pounds): 90 General Appearance: lethargic EENT: PERRL/EOMI Neck: non-tender Cardiovascular: normal rate, regular rhythm Respiratory/Chest: decreased breath sounds Abdomen: tender ROMA VALIENTE Dec 11, 2017 14:01
--- NOTE | 2017-12-11 15:17 | Nephrology Progress Note ---
Assessment/Plan Problem List: (1) Hyponatremia (2) Metastatic cancer (3) Protein-calorie malnutrition, severe Assessment now on comfort care- MS drip- Low BP with acute renal failure (1) Intractable nausea and vomiting (2) Metastatic cancer (3) Protein-calorie malnutrition, severe (4) Gastric cancer (5) Episode of generalized weakness Plan comfort care - will sign off Subjective ROS Limited/Unobtainable: Yes Objective Objective Last 24 Hour Vital Signs Date Time Temp Pulse Resp B/P (MAP) Pulse Ox O2 Delivery O2 Flow Rate FiO2 12/11/17 12:00 97.9 120 18 86/56 95 Room Air 97.9 12/11/17 08:00 128 20 Room Air 21 12/11/17 08:00 97.3 119 18 96/64 97 97.3 12/11/17 04:00 97.0 121 12 91/67 96 97.0 12/11/17 01:00 97.1 12/11/17 00:00 97.1 125 14 80/61 98 97.1 12/10/17 20:00 96.0 136 16 96/65 98 96.0 12/10/17 18:35 108 20 Room Air 21 12/10/17 16:00 95.9 132 16 90/66 89 Room Air 95.9 12/10/17 15:49 97.1 Intake and Output 12/10/17 12/11/17 19:00 07:00 Output Total 150 ml Balance -150 ml Drainage Total 150 ml # Voids 2 Laboratory Tests 12/11/17 07:10: White Blood Count 6.2, Red Blood Count 3.78L, Hemoglobin 11.7L, Hematocrit 33.9L , Mean Corpuscular Volume 90, Mean Corpuscular Hemoglobin 30.9, Mean Corpuscular Hemoglobin Concent 34.5, Red Cell Distribution Width 13.1, Platelet Count 245, Mean Platelet Volume 6.7, Neutrophils (%) (Auto) 74.0, Lymphocytes (% ) (Auto) 12.2L, Monocytes (%) (Auto) 12.6H, Eosinophils (%) (Auto) 0.0, Basophils (%) (Auto) 1.3 12/11/17 10:40: Sodium Level 126L, Potassium Level 5.3H, Chloride Level 94L, Carbon Dioxide Level 19L, Anion Gap 13, Blood Urea Nitrogen 53H, Creatinine 2.3#H, Estimat Glomerular Filtration Rate 23.9, Glucose Level 136H, Uric Acid 9.5H, Calcium Level 8.7, Phosphorus Level 6.2H, Magnesium Level 2.0, Total Bilirubin 0.3, Aspartate Amino Transf (AST/SGOT) 35, Alanine Aminotransferase (ALT/SGPT) 26, Alkaline Phosphatase 96, C-Reactive Protein, Quantitative 35.9H, Total Protein 6.2L, Albumin 1.5L, Globulin 4.7, Albumin/Globulin Ratio 0.3L Height (Feet): 5 Height (Inches): 6.00 Weight (Pounds): 90 General Appearance: no apparent distress Objective no change CARLOS MARLOW Dec 11, 2017 15:17
--- NOTE | 2017-12-11 16:23 | GI Progress Note ---
Assessment/Plan Problems: (1) Metastatic cancer ICD Codes: C79.9 - Secondary malignant neoplasm of unspecified site SNOMED: 729680254 Status: unchanged, deteriorating Status Narrative Discussed with Dr. Santoro. Assessment/Plan comfort care Subjective Subjective limited Objective Last 24 Hour Vital Signs Date Time Temp Pulse Resp B/P (MAP) Pulse Ox O2 Delivery O2 Flow Rate FiO2 12/11/17 15:52 97.9 12/11/17 15:22 97.9 12/11/17 12:00 97.9 120 18 86/56 95 Room Air 97.9 12/11/17 08:00 128 20 Room Air 21 12/11/17 08:00 97.3 119 18 96/64 97 97.3 12/11/17 04:00 97.0 121 12 91/67 96 97.0 12/11/17 01:00 97.1 12/11/17 00:00 97.1 125 14 80/61 98 97.1 12/10/17 20:00 96.0 136 16 96/65 98 96.0 12/10/17 18:35 108 20 Room Air 21 Intake and Output 12/10/17 12/11/17 19:00 07:00 Output Total 150 ml Balance -150 ml Drainage Total 150 ml # Voids 2 Laboratory Tests Test 12/11/17 07:10 12/11/17 10:40 White Blood Count 6.2 K/UL (4.8-10.8) Red Blood Count 3.78 M/UL (4.20-5.40) L Hemoglobin 11.7 G/DL (12.0-16.0) L Hematocrit 33.9 % (37.0-47.0) L Mean Corpuscular Volume 90 FL (80-99) Mean Corpuscular Hemoglobin 30.9 PG (27.0-31.0) Mean Corpuscular Hemoglobin Concent 34.5 G/DL (32.0-36.0) Red Cell Distribution Width 13.1 % (11.6-14.8) Platelet Count 245 K/UL (150-450) Mean Platelet Volume 6.7 FL (6.5-10.1) Neutrophils (%) (Auto) 74.0 % (45.0-75.0) Lymphocytes (%) (Auto) 12.2 % (20.0-45.0) L Monocytes (%) (Auto) 12.6 % (1.0-10.0) H Eosinophils (%) (Auto) 0.0 % (0.0-3.0) Basophils (%) (Auto) 1.3 % (0.0-2.0) Sodium Level 126 MMOL/L (136-145) L Potassium Level 5.3 MMOL/L (3.5-5.1) H Chloride Level 94 MMOL/L (98-107) L Carbon Dioxide Level 19 MMOL/L (21-32) L Anion Gap 13 mmol/L (5-15) Blood Urea Nitrogen 53 mg/dL (7-18) H Creatinine 2.3 MG/DL (0.55-1.30) #H Estimat Glomerular Filtration Rate 23.9 mL/min (>60) Glucose Level 136 MG/DL (74-106) H Uric Acid 9.5 MG/DL (2.6-7.2) H Calcium Level 8.7 MG/DL (8.5-10.1) Phosphorus Level 6.2 MG/DL (2.5-4.9) H Magnesium Level 2.0 MG/DL (1.8-2.4) Total Bilirubin 0.3 MG/DL (0.2-1.0) Aspartate Amino Transf (AST/SGOT) 35 U/L (15-37) Alanine Aminotransferase (ALT/SGPT) 26 U/L (12-78) Alkaline Phosphatase 96 U/L (46-116) C-Reactive Protein, Quantitative 35.9 mg/dL (0.00-0.90) H Total Protein 6.2 G/DL (6.4-8.2) L Albumin 1.5 G/DL (3.4-5.0) L Globulin 4.7 g/dL Albumin/Globulin Ratio 0.3 (1.0-2.7) L Height (Feet): 5 Height (Inches): 6.00 Weight (Pounds): 90 Priscila Diggs N.P. Dec 11, 2017 16:23
--- NOTE | 2017-12-11 21:12 | Pulmonology Progress Note ---
Assessment/Plan Problems: (1) Intractable nausea and vomiting (2) Metastatic cancer (3) Protein-calorie malnutrition, severe (4) Gastric cancer (5) Episode of generalized weakness Assessment/Plan d/w pt's other in the presence of the body friend. Mother know and can see that her daughter is dying. They don't have a place for her to take her. They agreed with DNR, comfort care and Morphine drip. Subjective ROS Limited/Unobtainable: No Allergies: Coded Allergies: LACTOSE (Verified Allergy, Unknown, 12/07/17) LACTOSE-REDUCED FOOD (Verified Allergy, Unknown, vomiting, 12/07/17) NUTRITIONAL SUPPLEMENT,SPECIAL FORMULAS (Verified Allergy, Unknown, vomiting, 12/07/17) Objective Last 24 Hour Vital Signs Date Time Temp Pulse Resp B/P (MAP) Pulse Ox O2 Delivery O2 Flow Rate FiO2 12/11/17 15:52 97.9 12/11/17 15:22 97.9 12/11/17 12:00 97.9 120 18 86/56 95 Room Air 97.9 12/11/17 08:00 128 20 Room Air 21 12/11/17 08:00 97.3 119 18 96/64 97 97.3 12/11/17 04:00 97.0 121 12 91/67 96 97.0 12/11/17 01:00 97.1 12/11/17 00:00 97.1 125 14 80/61 98 97.1 Intake and Output 12/10/17 12/11/17 19:00 07:00 Output Total 150 ml Balance -150 ml Drainage Total 150 ml # Voids 2 Objective General Appearance: cachectic HEENT: normocephalic, atraumatic, anicteric Respiratory/Chest: normal breath sounds Cardiovascular: normal peripheral pulses, normal rate, regular rhythm Abdomen: tender, NICOLE tube Genitourinary: normal external genitalia Extremities: no cyanosis Skin: no rash, no lesions Laboratory Tests 12/11/17 07:10: White Blood Count 6.2, Red Blood Count 3.78L, Hemoglobin 11.7L, Hematocrit 33.9L , Mean Corpuscular Volume 90, Mean Corpuscular Hemoglobin 30.9, Mean Corpuscular Hemoglobin Concent 34.5, Red Cell Distribution Width 13.1, Platelet Count 245, Mean Platelet Volume 6.7, Neutrophils (%) (Auto) 74.0, Lymphocytes (% ) (Auto) 12.2L, Monocytes (%) (Auto) 12.6H, Eosinophils (%) (Auto) 0.0, Basophils (%) (Auto) 1.3 12/11/17 10:40: Sodium Level 126L, Potassium Level 5.3H, Chloride Level 94L, Carbon Dioxide Level 19L, Anion Gap 13, Blood Urea Nitrogen 53H, Creatinine 2.3#H, Estimat Glomerular Filtration Rate 23.9, Glucose Level 136H, Uric Acid 9.5H, Calcium Level 8.7, Phosphorus Level 6.2H, Magnesium Level 2.0, Total Bilirubin 0.3, Aspartate Amino Transf (AST/SGOT) 35, Alanine Aminotransferase (ALT/SGPT) 26, Alkaline Phosphatase 96, C-Reactive Protein, Quantitative 35.9H, Total Protein 6.2L, Albumin 1.5L, Globulin 4.7, Albumin/Globulin Ratio 0.3L Current Medications Medications (Trade) Dose Ordered Sig/Kina Route PRN Reason Start Time Stop Time Status Last Admin Dose Admin Acetaminophen (Tylenol) 650 mg Q4H PRN ORAL fever 12/09/17 13:00 01/06/18 12:59 Albuterol/ Ipratropium (Albuterol/ Ipratropium) 3 ml Q4H PRN HHN Shortness of Breath 12/09/17 13:00 12/14/17 12:59 Dextrose (Dextrose 50%) STAT PRN IV Hypoglycemia 12/09/17 13:00 01/06/18 12:59 Famotidine (Pepcid I.v.) 20 mg DAILY IVP 12/12/17 09:00 01/09/18 20:59 Heparin Sodium (Porcine) (Heparin 5000 units/ml) 5,000 units EVERY 12 HOURS SUBQ 12/09/17 21:00 01/06/18 20:59 12/11/17 08:24 Miscellaneous Medication (Narcotic Drip Rate Change) 1 ea DAILY PRN MISC . 12/10/17 15:15 01/09/18 15:14 Miscellaneous Medication (Narcotic Shift Volume) 1 ea Q12HR@0700,1900 MISC 12/10/17 19:00 01/09/18 18:59 12/11/17 19:00 Morphine Sulfate 30 ml @ 3 mls/hr EMT BASIC PROTOCOL PRN IV For Pain 12/10/17 19:30 12/12/17 19:29 12/11/17 15:22 Morphine Sulfate (Morphine Sulfate) 4 mg Q4H PRN IVP RR>30, BREAKTHROUGH PAIN 12/10/17 15:15 12/16/17 21:29 Nitroglycerin (Ntg) 0.4 mg Q5MINS PRN SL Prn Chest Pain 12/09/17 12:45 01/06/18 19:59 Ondansetron HCl (Zofran) 4 mg Q6H IVP 12/10/17 12:45 01/09/18 12:44 12/11/17 18:20 Polyethylene Glycol (Miralax) 17 gm DAILYPRN PRN ORAL Constipation 12/09/17 14:00 01/06/18 13:59 Promethazine HCl (Phenergan) 25 mg Q4H PRN IV Nausea & Vomiting 12/09/17 21:30 01/08/18 21:29 12/10/17 04:44 Temazepam (Restoril) 15 mg HSPRN PRN ORAL Insomnia 12/09/17 14:00 12/14/17 13:59 Trimethobenzamide HCl (Tigan) 200 mg Q8H PRN IM Nausea & Vomiting 12/09/17 21:30 01/08/18 21:29 12/10/17 10:27 Jolene Arellano MD Dec 11, 2017 21:12
[2017-12-12] MEDS: PCA Morphine 1mg/ml 30 ML IV PRN (05:52)
[2017-12-12] MEDS: Narcotic Shift Volume MISC SCH ×2 (07:15→19:00)
[2017-12-12] MEDS: Heparin 5000 units/ml inj SUBQ SCH ×2 (10:07→21:32)
--- NOTE | 2017-12-12 10:11 | General Progress Note ---
Assessment/Plan Assessment/Plan 1. Metastatic gastric cancer. Further treatment as per primary team. She has been by surgical service. 2. Status post exploratory laparotomy, getting pain medications, at this time presents with abdominal pain. --> I am unable to proceed with chemotherapy at this time. --> Prognosis remains extremely poor. The patient is very guarded. --> At this time, the patient needs better nutrition prior to initiation of chemotherapy and may be hospice, may be a candidate for supportive care. --> We would be very conservative in treating with chemotherapy. --> I have recommended GI to see the patient in regard to potential G-tube, although that may not be the best option given ongoing cancer. 3. Leukopenia, probably related to cancer, closely monitor. 4. Anemia due to metastatic gastric cancer. --> Hemoglobin levels remain stable 5. Abdominal pain due to gastric cancer. Continue to closely monitor. 6. Malnutrition, wasting. We will continue to closely monitor with primary team. Try to increase fluids. 7. Intake. 8. Protein-caloric malnutrition, closely monitor. The patient is guarded with poor prognosis. Subjective Date patient seen: Dec 11, 2017 Constitutional: Denies: no symptoms, chills, diaphoresis, fever, malaise, weakness, other HEENT: Denies: no symptoms, eye pain, blurred vision, tearing, double vision, ear pain, ear discharge, nose pain, nose congestion, throat pain, throat swelling, mouth pain, mouth swelling, other Cardiovascular: Denies: no symptoms, chest pain, edema, irregular heart rate, lightheadedness, palpitations, syncope, other Respiratory: Denies: no symptoms, cough, orthopnea, shortness of breath, SOB with excertion, SOB at rest, sputum, stridor, wheezing, other Gastrointestinal/Abdominal: Denies: no symptoms, abdomen distended, abdominal pain, black stools, tarry stools, blood in stool, constipated, diarrhea, difficulty swallowing, nausea, poor appetite, poor fluid intake, rectal bleeding , vomiting, other Genitourinary: Denies: no symptoms, burning, discharge, frequency, flank pain, hematuria, incontinence, pain, urgency, other Neurologic/Psychiatric: Denies: no symptoms, anxiety, depressed, emotional problems, headache, numbness, paresthesia, pre-existing deficit, seizure, tingling, tremors, weakness, other Hematologic/Lymphatic: Reports: anemia Allergies: Coded Allergies: LACTOSE (Verified Allergy, Unknown, 12/07/17) LACTOSE-REDUCED FOOD (Verified Allergy, Unknown, vomiting, 12/07/17) NUTRITIONAL SUPPLEMENT,SPECIAL FORMULAS (Verified Allergy, Unknown, vomiting, 12/07/17) Subjective Deteriorating. Tachycardic. Objective Last 24 Hour Vital Signs Date Time Temp Pulse Resp B/P (MAP) Pulse Ox O2 Delivery O2 Flow Rate FiO2 12/12/17 07:44 108 20 Room Air 21 12/11/17 22:00 108 20 Room Air 21 12/11/17 15:52 97.9 12/11/17 15:22 97.9 12/11/17 12:00 97.9 120 18 86/56 95 Room Air 97.9 Intake and Output 12/11/17 12/12/17 19:00 07:00 Intake Total 24 ml Output Total 430 ml Balance -430 ml 24 ml IV Total 24 ml Output Emesis 250 ml Drainage Total 180 ml # Voids 1 1 Laboratory Tests 12/11/17 10:40: Sodium Level 126L, Potassium Level 5.3H, Chloride Level 94L, Carbon Dioxide Level 19L, Anion Gap 13, Blood Urea Nitrogen 53H, Creatinine 2.3#H, Estimat Glomerular Filtration Rate 23.9, Glucose Level 136H, Uric Acid 9.5H, Calcium Level 8.7, Phosphorus Level 6.2H, Magnesium Level 2.0, Total Bilirubin 0.3, Aspartate Amino Transf (AST/SGOT) 35, Alanine Aminotransferase (ALT/SGPT) 26, Alkaline Phosphatase 96, C-Reactive Protein, Quantitative 35.9H, Total Protein 6.2L, Albumin 1.5L, Globulin 4.7, Albumin/Globulin Ratio 0.3L Height (Feet): 5 Height (Inches): 6.00 Weight (Pounds): 90 Respiratory/Chest: decreased breath sounds Yehuda Quintanilla Dec 12, 2017 10:11
--- NOTE | 2017-12-12 11:13 | GI Progress Note ---
Assessment/Plan Problems: (1) Metastatic cancer ICD Codes: C79.9 - Secondary malignant neoplasm of unspecified site SNOMED: [id number] Status: unchanged Status Narrative Discussed with Dr. Santoro. Assessment/Plan comfort care family requesting to have NGT placed for feeding Subjective Subjective limited Objective Last 24 Hour Vital Signs Date Time Temp Pulse Resp B/P (MAP) Pulse Ox O2 Delivery O2 Flow Rate FiO2 12/12/17 07:44 108 20 Room Air 21 12/11/17 22:00 108 20 Room Air 21 12/11/17 15:52 97.9 12/11/17 15:22 97.9 12/11/17 12:00 97.9 120 18 86/56 95 Room Air 97.9 Intake and Output 12/11/17 12/12/17 19:00 07:00 Intake Total 24 ml Output Total 430 ml Balance -430 ml 24 ml IV Total 24 ml Output Emesis 250 ml Drainage Total 180 ml # Voids 1 1 Height (Feet): 5 Height (Inches): 6.00 Weight (Pounds): 90 General Appearance: thin Priscila Diggs N.P. Dec 12, 2017 11:13
--- NOTE | 2017-12-12 12:56 | Nephrology Progress Note ---
Assessment/Plan Problem List: (1) Hyponatremia (2) Metastatic cancer (3) Protein-calorie malnutrition, severe Assessment now on comfort care- MS drip- Low BP with acute renal failure (1) Intractable nausea and vomiting (2) Metastatic cancer (3) Protein-calorie malnutrition, severe (4) Gastric cancer (5) Episode of generalized weakness Plan comfort care - not much to add Subjective ROS Limited/Unobtainable: Yes Constitutional: Reports: malaise Objective Objective Last 24 Hour Vital Signs Date Time Temp Pulse Resp B/P (MAP) Pulse Ox O2 Delivery O2 Flow Rate FiO2 12/12/17 07:44 108 20 Room Air 21 12/11/17 22:00 108 20 Room Air 21 12/11/17 15:52 97.9 12/11/17 15:22 97.9 Intake and Output 12/11/17 12/12/17 19:00 07:00 Intake Total 24 ml Output Total 430 ml Balance -430 ml 24 ml IV Total 24 ml Output Emesis 250 ml Drainage Total 180 ml # Voids 1 1 Height (Feet): 5 Height (Inches): 6.00 Weight (Pounds): 90 General Appearance: no apparent distress Objective no change CARLOS MARLOW Dec 12, 2017 12:56
[2017-12-12] MEDS ORDERED: Tubing IV Secondary IV ONE ×2 (14:14→14:21)
[2017-12-12] MEDS ORDERED: D5W 275ml ONE (14:14)
[2017-12-12] MEDS ORDERED: NS 500ML ONE (14:21)
--- NOTE | 2017-12-12 14:50 | General Surgery Progress Note ---
General Surgery-Progress Note Subjective Additional Comments stable. family asking for experimental treatments. Objective Last 24 Hour Vital Signs Date Time Temp Pulse Resp B/P (MAP) Pulse Ox O2 Delivery O2 Flow Rate FiO2 12/12/17 07:44 108 20 Room Air 21 12/11/17 22:00 108 20 Room Air 21 12/11/17 15:52 97.9 12/11/17 15:22 97.9 I&O Intake and Output 12/11/17 12/12/17 19:00 07:00 Intake Total 24 ml Output Total 430 ml Balance -430 ml 24 ml IV Total 24 ml Output Emesis 250 ml Drainage Total 180 ml # Voids 1 1 Drains: jessica Cardiovascular: RSR Respiratory: clear Abdomen: other - full in RLQ, soft, non tender Extremities: no tenderness, no cyanosis Plan Problems: (1) Metastatic cancer Assessment & Plan: 37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 Has significantly declined since last discharge. Returned dehydrated, malnutrition, wasting, pain. still with pain, weakness, fatigue, loss of appetite. CT reviewed, films reviewed very poor prognosis and may pass any day now. she is not improving and remains very ill. -ambulate and oob -IV fluids -resuscitation -diet as tolerated. Torrey Burton Dec 12, 2017 14:50
--- NOTE | 2017-12-12 15:43 | Infectious Diseases Prog Note ---
Assessment/Plan Assessment/Plan ASSESSMENT: - Nausea and vomiting/Abd pain.- no obvious infectious process- possiible 2ry to malignancy, ?progression Afebrile/normal white blood cells. -CT abd/p: Postsurgical changes.Partial gastrectomy with gastrojejunostomy. ? enteritis versus carcinomatosis. Right posterior pelvic mass. -History of perforated gastric ulcer, status post exploratory laparotomy. - History of recent peritonitis. 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 PLAN: -patient placed on comfort care and morphine drip ID will sign off now. Please call back if needed. Subjective Allergies: Coded Allergies: LACTOSE (Verified Allergy, Unknown, 12/07/17) LACTOSE-REDUCED FOOD (Verified Allergy, Unknown, vomiting, 12/07/17) NUTRITIONAL SUPPLEMENT,SPECIAL FORMULAS (Verified Allergy, Unknown, vomiting, 12/07/17) Subjective afebrile no leukocytosis off abx worsenign Cr Objective Vital Signs Last 24 Hour Vital Signs Date Time Temp Pulse Resp B/P (MAP) Pulse Ox O2 Delivery O2 Flow Rate FiO2 12/12/17 07:44 108 20 Room Air 21 12/11/17 22:00 108 20 Room Air 21 12/11/17 15:52 97.9 Height (Feet): 5 Height (Inches): 6.00 Weight (Pounds): 90 Objective HEENT: No pale conjunctivae. No icterus. NECK: No lymphadenopathy. CHEST: Clear. HEART: S1 and S2. ABDOMEN: Soft, mildly tender in all four quadrants. The patient has a NICOLE drain and has serous drainage, clear. No pus. NEUROLOGIC: Awake and alert. SKIN: No rash. Current Medications Medications (Trade) Dose Ordered Sig/Kina Route PRN Reason Start Time Stop Time Status Last Admin Dose Admin Acetaminophen (Tylenol) 650 mg Q4H PRN ORAL fever 12/09/17 13:00 01/06/18 12:59 Albuterol/ Ipratropium (Albuterol/ Ipratropium) 3 ml Q4H PRN HHN Shortness of Breath 12/09/17 13:00 12/14/17 12:59 Dextrose (Dextrose 50%) STAT PRN IV Hypoglycemia 12/09/17 13:00 01/06/18 12:59 Famotidine (Pepcid I.v.) 20 mg DAILY IVP 12/12/17 09:00 01/09/18 20:59 12/12/17 10:05 Heparin Sodium (Porcine) (Heparin 5000 units/ml) 5,000 units EVERY 12 HOURS SUBQ 12/09/17 21:00 01/06/18 20:59 12/12/17 10:07 Miscellaneous Medication (Narcotic Drip Rate Change) 1 ea DAILY PRN MISC . 12/10/17 15:15 01/09/18 15:14 Miscellaneous Medication (Narcotic Shift Volume) 1 ea Q12HR@0700,1900 MISC 12/10/17 19:00 01/09/18 18:59 12/12/17 07:15 Morphine Sulfate 30 ml @ 3 mls/hr [employer] ARCHITECT PROTOCOL PRN IV For Pain 12/10/17 19:30 12/12/17 19:29 12/12/17 05:52 Morphine Sulfate (Morphine Sulfate) 4 mg Q4H PRN IVP RR>30, BREAKTHROUGH PAIN 12/10/17 15:15 12/16/17 21:29 Nitroglycerin (Ntg) 0.4 mg Q5MINS PRN SL Prn Chest Pain 12/09/17 12:45 01/06/18 19:59 Ondansetron HCl (Zofran) 4 mg Q6H IVP 12/10/17 12:45 01/09/18 12:44 12/12/17 12:51 Polyethylene Glycol (Miralax) 17 gm DAILYPRN PRN ORAL Constipation 12/09/17 14:00 01/06/18 13:59 Promethazine HCl (Phenergan) 25 mg Q4H PRN IV Nausea & Vomiting 12/09/17 21:30 01/08/18 21:29 12/10/17 04:44 Temazepam (Restoril) 15 mg HSPRN PRN ORAL Insomnia 12/09/17 14:00 12/14/17 13:59 Trimethobenzamide HCl (Tigan) 200 mg Q8H PRN IM Nausea & Vomiting 12/09/17 21:30 01/08/18 21:29 12/10/17 10:27 Tayler Zambrano M.D. Dec 12, 2017 15:43
[2017-12-12] MEDS ORDERED: Eliquis 2.5mg tablet ORAL SCH (18:00)
--- NOTE | 2017-12-12 19:01 | General Progress Note ---
Progress Note Progress Note family requesting transfer either ot [facility] of [facility]. They are absolutely in denial. pt is totally wasted and cachectic, with extensive gastric CA with mets to peritoneum and ovaries. Currently pt is just getting pain meds. Family requesting experimental treatment, which can not be provided. The sister from [place] is waiting for a miracle to happen so she can be healthy again. The want to transfer to [facility], but [facility] doesn't take futile or experimental cases. Jolene Arellano MD Dec 12, 2017 19:01
[2017-12-12] MEDS ORDERED: Morphine Sulfate 2mg/ml Inj IVP PRN (20:30)
--- NOTE | 2017-12-13 12:08 | General Progress Note ---
Assessment/Plan Status: deteriorating Assessment/Plan 1. Metastatic gastric cancer. Further treatment as per primary team. She has been by surgical service. 2. Status post exploratory laparotomy, getting pain medications, at this time presents with abdominal pain. --> I am unable to proceed with chemotherapy at this time. --> Prognosis remains extremely poor. The patient is very guarded. --> At this time, the patient needs better nutrition prior to initiation of chemotherapy and may be hospice, may be a candidate for supportive care. --> We would be very conservative in treating with chemotherapy. --> I have recommended GI to see the patient in regard to potential G-tube, although that may not be the best option given ongoing cancer. 3. Leukopenia, probably related to cancer, closely monitor. 4. Anemia due to metastatic gastric cancer. --> Hemoglobin levels remain stable 5. Abdominal pain due to gastric cancer. Continue to closely monitor. 6. Malnutrition, wasting. We will continue to closely monitor with primary team. Try to increase fluids. 7. Intake. 8. Protein-caloric malnutrition, closely monitor. The patient is guarded with poor prognosis. Family requested patient transfer Subjective Date patient seen: Dec 12, 2017 Constitutional: Denies: no symptoms, chills, diaphoresis, fever, malaise, weakness, other HEENT: Denies: no symptoms, eye pain, blurred vision, tearing, double vision, ear pain, ear discharge, nose pain, nose congestion, throat pain, throat swelling, mouth pain, mouth swelling, other Cardiovascular: Denies: no symptoms, chest pain, edema, irregular heart rate, lightheadedness, palpitations, syncope, other Respiratory: Denies: no symptoms, cough, orthopnea, shortness of breath, SOB with excertion, SOB at rest, sputum, stridor, wheezing, other Gastrointestinal/Abdominal: Denies: no symptoms, abdomen distended, abdominal pain, black stools, tarry stools, blood in stool, constipated, diarrhea, difficulty swallowing, nausea, poor appetite, poor fluid intake, rectal bleeding , vomiting, other Genitourinary: Denies: no symptoms, burning, discharge, frequency, flank pain, hematuria, incontinence, pain, urgency, other Neurologic/Psychiatric: Denies: no symptoms, anxiety, depressed, emotional problems, headache, numbness, paresthesia, pre-existing deficit, seizure, tingling, tremors, weakness, other Allergies: Coded Allergies: LACTOSE (Verified Allergy, Unknown, 12/07/17) LACTOSE-REDUCED FOOD (Verified Allergy, Unknown, vomiting, 12/07/17) NUTRITIONAL SUPPLEMENT,SPECIAL FORMULAS (Verified Allergy, Unknown, vomiting, 12/07/17) Subjective Deteriorating. Poor Prognosis. Family at side. Objective Last 24 Hour Vital Signs Date Time Temp Pulse Resp B/P (MAP) Pulse Ox O2 Delivery O2 Flow Rate FiO2 12/12/17 19:51 110 18 Room Air Intake and Output 12/12/17 12/13/17 19:00 07:00 Intake Total 240 ml Balance 240 ml Intake Oral 240 ml # Voids 3 Height (Feet): 5 Height (Inches): 6.00 Weight (Pounds): 90 General Appearance: cachetic Respiratory/Chest: decreased breath sounds Edema: trace edema Yehuda Quintanilla Dec 13, 2017 12:08
--- NOTE | 2017-12-14 16:01 | Discharge Summary ---
Discharge Summary Hospital Course Date of Admission Dec 07, 2017 at 18:26 Date of Discharge Dec 13, 2017 at 01:30 Admitting Diagnosis gen. weakness, metastatic gastric CA, hyponatremia HPI Susan Tiwari is a 37 year old female who was admitted on Dec 07, 2017 at 18:26 for Generalized Weakness, Metastatic Gastric Cancer Hospital Course [id number] Discharge Discharge Disposition Patient was discharged to Home (01) Discharge Diagnoses: Mari Odonnell NP Dec 14, 2017 16:01
--- NOTE | 2017-12-15 00:15 | Discharge Summary 2 SIG ---
DATE OF ADMISSION: 12/07/2017 DATE OF DISCHARGE: 12/13/2017 CONSULTANTS: 1. Yehuda Quintanilla M.D. 2. Tayler Zambrano M.D. 3. Torrey Burton M.D. 4. Reginaldo Rivera M.D. 5. Facundo Santoro M.D. 6. Kris Vela M.D. BRIEF HOSPITAL COURSE: The patient is a 37-year-old unfortunate female, who was recently diagnosed with gastric CA, who was admitted recently and underwent exploratory laparotomy for gastric cancer. Follow up pathology showed metastatic gastric cancer, gastric Krukenberg tumor/CA. She had a lengthy stay from previous admission and recovered improved and was able to tolerate diet and ambulate and was having normal bowel movements. She was told to follow up postoperative a week after discharge. She was initially told to follow up with surgeon a week after discharge, however, never returned. She eventually was seen on 12/05/2017 by Surgery and at that time, she was noted to be significantly dehydrated with failure to thrive and had significant weight loss and markedly diminished appetite, overall looking very poor. She also complained of worsening pain and had a lot of serous drainage per day. She was immediately advised to go to ED for further evaluation, however, the patient only presented to the emergency room on 12/07/2017. On evaluation, she was markedly dehydrated with weight loss, malnutrition, and very cachectic looking. She had elevated creatinine levels. She was given IV hydration. She was unable to keep anything orally and does not have any desire to eat. She had persistent nausea and pain. She was seen by pain management and was given morphine as needed. She was placed on comfort care and was started on [employer] morphine, however, family changed their mind and requested transfer to [facility] or [facility]. They are requesting for experimental treatment. Prognosis is very poor. The patient was not improving and remained very ill. Family was in denial of the patient's condition. cargo station worker was called in to aid with family's request. The patient is also not a candidate for initiation of chemotherapy. As prognosis is extremely poor and guarded, she was eventually discharged home. FINAL DIAGNOSES: 1. Metastatic gastric CA. 2. Anemia due to CA. 3. Nausea and vomiting. No obvious infectious process. 4. Acute renal failure. 5. Severe protein-calorie malnutrition. 6. Hyponatremia. 7. Generalized weakness. DISPOSITION: The patient was discharged home. DISCHARGE MEDICATIONS: Refer to medication list. DISCHARGE INSTRUCTIONS: Follow up with PCP. Jolene Arellano M.D. I have been assigned to dictate discharge summary on this account and I was not involved in the patient's management. Mari Odonnell N.P. DR: MARTI JOB#: [id number] CC: MUNA
--- NOTE | 2017-12-15 22:37 | Diagnostic Imaging Report ---
APPROVED REPORT CPT Code: 01924 Present Symptoms Comments: R/O DVT RIGHT LEG: Venous imaging reveals a patent deep venous system. There is no evidence of thrombus within the femoral, popliteal or tibial segments. The greater saphenous vein is also within normal limits. Doppler indicates normal spontaneous flow within these segments. LEFT LEG: Venous imaging reveals acute thrombus in the common femoral to distal superficial femoral veins. Remainder of the deep venous system within normal limits. No evidence of thrombus in the popliteal or tibial segments calf veins. Greater saphenous vein also within normal limits.
== END 2017-12-13 01:30 | disposition home or self-care (01) | DRG 240 ==
LOC: EMR 18:25 → 4W 18:26 → EDBEDREQ 18:41 → EDBEDREQSVC 19:22 → EDBEDREQ 19:48 → 2E 21:35 → 4E 12-09 12:31
DX: C16.9 Malignant neoplasm of stomach, unspecified (principal); E43 Unspecified severe protein-calorie malnutrition; N17.9 Acute kidney failure, unspecified; C78.6 Secondary malignant neoplasm of retroperitoneum and peritoneum; E86.0 Dehydration; Z51.5 Encounter for palliative care; Z66 Do not resuscitate; Z68.1 Body mass index [BMI] 19.9 or less, adult; E87.1 Hypo-osmolality and hyponatremia; E87.5 Hyperkalemia; D63.0 Anemia in neoplastic disease; R53.1 Weakness; R11.2 Nausea with vomiting, unspecified; C79.62 Secondary malignant neoplasm of left ovary; C79.61 Secondary malignant neoplasm of right ovary; Z90.3 Acquired absence of stomach [part of]
CPT/HCPCS: 36415; 74018; 74177; 80053; 80061; 80202; 81001; 82962; 83036; 83690; 83735; 83880; 83935; 84100; 84300; 84443; 84484; 84550; 85025; 85610; 85730; 86140; 87081; 93005; 93970; 94664; 99285; J2405